=== PATIENT | female | born 1985 | race African-American/Black ===

== ENCOUNTER → 2022-01-31 13:23 | Outpatient (BNVA) | payer OTHER, SELFPAY | PROVIDERS: PCP Hospitalist; Visit Provider Internal Medicine | DX: S01.81XA Laceration without foreign body of other part of head, initial encounter (principal); W22.8XXA Striking against or struck by other objects, initial encounter | CPT/HCPCS: 99202 ==

== ENCOUNTER → 2022-02-08 14:27 | Outpatient (BNVA) | payer OTHER, SELFPAY | PROVIDERS: PCP Hospitalist; Visit Provider Internal Medicine | DX: S01.81XA Laceration without foreign body of other part of head, initial encounter (principal); W22.8XXA Striking against or struck by other objects, initial encounter | CPT/HCPCS: 99213 ==

== ENCOUNTER 2022-05-03 07:59 | Outpatient (REF) | payer OTHER, SELFPAY ==
[2022-05-03 11:44] LABS: Hematocrit 37.8 % (37.0-47.0); Hemoglobin 11.3 g/dl (12.0-16.0); Mean Corpuscular HGB Conc 29.9 g/dl (31.0-35.0); Mean Corpuscular Hemoglobin 24.8 pg (27.0-33.0); Mean Corpuscular Volume 83.1 fL (80.0-98.0); Mean Platelet Volume 11.7 fL (9.4-12.3); Platelet Count 256 X10*3/uL (160-400); Red Blood Count 4.55 X10*6/uL (4.20-5.50); Red Cell Distribution Width 13.6 % (11.0-16.0); White Blood Count 6.7 X10*3/uL (4.8-10.8)
[2022-05-03 12:00] LABS: Estimated Average Glucose 120 mg/dL; Hemoglobin A1c % 5.8 %
[2022-05-03 12:24] LABS: Alanine Aminotransferase 10 U/L (0-31); Albumin Level 3.9 g/dL (3.5-5.0); Alkaline Phosphatase 66 U/L (39-117); Anion Gap 10 (12-20); Aspartate Amino Transferase 13 U/L (5-31); Bilirubin Total 0.4 mg/dL (0.0-1.0); Blood Urea Nitrogen 11 mg/dL (9-16); Calcium 9.1 mg/dL (8.4-10.2); Carbon Dioxide 26 mmol/L (22-29); Chloride 108 mmol/L (96-108); Cholesterol 185 mg/dL; Estimated Glomerular Filt Rate > 60; Glucose Fasting 96 mg/dL (60-99); HDL Cholesterol 47 mg/dL; LDL Cholesterol Calculated 107 mg/dl; Potassium 4.2 mmol/L (3.3-5.1); Sodium 140 mmol/L (135-145); Total Protein 6.6 g/dL (6.5-8.0); Triglycerides 158 mg/dL
[2022-05-03 12:25] LABS: TSH reflex Free T4 1.71 uIU/mL (0.32-4.0); Vitamin D 25-OH Total 17.8 ng/mL (>30)
== END 2022-05-03 08:00 | disposition home or self-care (01) ==
LOC: HO.HMGCLDS 07:59
PROVIDERS: PCP Nurse Practitioner Family; Visit Provider Nurse Practitioner Family
DX: Z00.00 Encounter for general adult medical examination without abnormal findings (principal)
CPT/HCPCS: 36415; 80053; 80061; 82306; 83036; 84443; 85027

== ENCOUNTER → 2022-06-07 08:01 | Outpatient (BNVA) | payer OTHER, SELFPAY | PROVIDERS: PCP Nurse Practitioner Family; Visit Provider Nurse Practitioner Family | DX: G43.109 Migraine with aura, not intractable, without status migrainosus (principal); G47.30 Sleep apnea, unspecified; E66.01 Morbid (severe) obesity due to excess calories; Z68.41 Body mass index [BMI] 40.0-44.9, adult | CPT/HCPCS: 99202 ==

== ENCOUNTER → 2022-06-27 13:01 | Outpatient (REF) | payer OTHER, SELFPAY | LOC: HO.SL 13:01 | PROVIDERS: Visit Provider Nurse Practitioner Family | DX: G47.30 Sleep apnea, unspecified (principal); G43.109 Migraine with aura, not intractable, without status migrainosus; R06.83 Snoring; E66.01 Morbid (severe) obesity due to excess calories; Z68.41 Body mass index [BMI] 40.0-44.9, adult | CPT/HCPCS: 95806 ==

== ENCOUNTER → 2022-08-13 20:30 | Outpatient (REF) | payer OTHER, SELFPAY | LOC: HO.SL 20:30 | PROVIDERS: Visit Provider Nurse Practitioner Family | DX: G47.30 Sleep apnea, unspecified (principal); E66.01 Morbid (severe) obesity due to excess calories; Z68.41 Body mass index [BMI] 40.0-44.9, adult | CPT/HCPCS: 95810 ==

== ENCOUNTER 2022-08-30 13:00 | Outpatient (REF) | payer OTHER, SELFPAY ==
[2022-08-31 05:54] LABS: CT PCR NOT DETECTED (Not Detect.); NG PCR NOT DETECTED (Not Detect.)
[2022-08-31 14:52] LABS: BV Int Neg Control Negative (Negative); BV Int Pos Control Positive (Positive)
[2022-09-03 22:08] LABS: HPV mRNA E6/E7 rflx Not Detected (Not Detected)
== END 2022-08-30 13:01 | disposition home or self-care (01) ==
LOC: HO.LNP 13:00
PROVIDERS: PCP Nurse Practitioner Family; Visit Provider Advanced Practice Midwife
DX: Z01.419 Encounter for gynecological examination (general) (routine) without abnormal findings (principal); Z11.51 Encounter for screening for human papillomavirus (HPV)
CPT/HCPCS: 0353U; 87480; 87510; 87624; 87660; 88142

== ENCOUNTER 2022-10-04 11:46 | Outpatient (AMB) | payer OTHER, SELFPAY ==
--- NOTE | 2022-10-04 11:47 | MHC.PC.OV ---
Vital Signs 10/04/22 11:48 Height 5 ft 5 in Weight 264 lb 8 oz BMI 44.0 BP 118/80 Blood Pressure Location Lt brachial Position Sitting Respiration 12 Pulse 85 Pulse Source Pulse Oximeter Temp 97.5 F Temp Source Temporal Artery Scan Pulse Oximetry (%) 99 Oxygen Delivery Method Room Air Intake Visit Reasons: 2 months elevated BP, low vit D, obesity Intake Note: Patient states that she has alot more hair growth under chin and on chest that she would like removed. Patient states shes been feeling good and has no complaints about her BP, Vit D or weight. 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 Accompanied by: Self / Same As Patient Allergies No Known Allergies Allergy (Verified 10/04/22 12:35) Medication List - Last Reconciled 10/04/22 by Geraldine Jasso CNP cholecalciferol (vitamin D3) 25 mcg PO DAILY 90 days magnesium oxide 400 mg PO DAILY 30 days metronidazole 0.75%(37.5mg/5gram) 1 appful vaginal BID 5 days riboflavin (vitamin B2) 400 mg PO DAILY 30 days topiramate 25 mg PO BID PRN 14 days Tobacco use date assessed: 05/31/22 Dental Screening Dental Screen Date: 10/04/22 Did you have a dental visit in the last 12 months?: Yes Did you have a dental problem in the last 6 months where you did not have access to dental care?: No Was dental information given to patient?: Patient has dentist HPI HPI Comments History of Present Illness Details 37-year-old female presents for hypertension, vitamin-D deficiency, and obesity follow-up She notes that she has been taking her medications as prescribed She states she has not been experiencing headaches No acute symptoms today Her main concern is h/o hair growth on her chin, chest, and abdomen which is getting excessive She has an existing vitamin-D lab order which intends to get drawn today. She had pap smear test done this month: normal She had normal sleep studies done She states she has not been contacted by Dietitian [facility] Surgical History H/O: Hx of tubal ligation Family History Mother HTN (hypertension) Diabetes Social History (Updated 10/04/22 @ 11:59 by Kaur Bruno MA) Household Members: Family Housing: Apartment Are you a primary ocular care technician to a significant other at home: No Alcohol intake: current Alcohol intake frequency: holidays/special occasions only Patient Tobacco Use Status: Never used Tobacco e-Cigarette/Vaping Use: Never Used Second Hand Smoke Exposure: No Special mich needs: No Agree to transfusion: Yes service: No Current occupational status: employed Current occupation: [place] Current occupational exposures/hazards: No Sexual orientation: Straight/Heterosexual Gender identity: Female Cognitive needs: No Hearing needs: No Vision needs: No Female Reproductive History Menstrual Age of Menarche: 9 Questionnaire Thrive Questionnaire Date Thrive assessed: 04/25/22 ELINOR-7 AMB Questionnaire ELINOR-7 Date ELINOR - 7 assessed: 04/25/22 Source: Developed by Drs. Miguel Vasquez, Yoon Fink, Osmin Bolton and colleagues, with an educational jovanny from [employer]. Review of Systems Const Details: Const Denies chills, Denies fatigue, Denies fever(s), Denies headache(s) and Denies weakness ENT Denies dizziness and Denies headache(s) Card Denies chest pain, Denies lightheadedness, Denies dyspnea and Denies other (Palpitations) Resp Denies cough, Denies dyspnea, Denies wheezing and Denies other ( shortness of breath) GI Denies abdominal pain, Denies melena, Denies hematochezia, Denies change in bowel habits, Denies dyspepsia and Denies nausea Denies hematuria and Denies dysuria Musc Denies abnormal gait, Denies myalgias, Denies arthralgias, Denies numbness and Denies tingling Skin/Breast Reports as per HPI Neuro Denies abnormal gait, Denies dizziness, Denies headache(s), Denies memory loss, Denies numbness, Denies Sensory deficit (Neuro), Denies tingling and Denies weakness Psych Denies anxiety and Denies depression Endo Denies cold intolerance, Denies fatigue, Denies heat intolerance, Denies polydipsia and Denies polyuria Aller/Immun Denies wheezing Physical exam (Primary Care) Vital Signs: Last Vital Signs Temp 97.5 F 10/04/22 11:48 Pulse 85 10/04/22 11:48 Resp 12 10/04/22 11:48 BP 118/80 10/04/22 11:48 Pulse Ox 99 10/04/22 11:48 Oxygen Delivery Method Room Air 10/04/22 11:48 BMI result Body Mass Index 44.0 Tobacco/Smoking Status: Tobacco use Status Tobacco use date assessed 05/31/22 10/04/22 12:00 Patient Tobacco Use Status Never used Tobacco 10/04/22 12:00 e-Cigarette/Vaping Use Never Used 10/04/22 12:00 Thrive Assessment: Date of Thrive Assessment Date Thrive assessed 04/25/22 10/04/22 12:00 Const Other: General: no acute distress and well developed Nutritional Appearance: well nourished Orientation/consciousness: patient oriented x3 HENMT Head: Yes normocephalic and Yes atraumatic Eyes General: appearance normal, both eyes and all related structures Pupils: Equal, round and reactive pupils present EOM: EOMs intact bilaterally Resp Effort & Inspection: normal respiratory effort Auscultation: clear to auscultation bilaterally Cardio Rate: regular rate Rhythm: regular rhythm Heart sounds: S1 normal heart sound present, S2 normal heart sound present, no gallops, no murmurs and no rubs GI Palpation (GI): No Abdominal aortic bruit present, Soft to palpation, nontender, No hepatosplenomegaly present and No Rebound tenderness present Auscultation: normal bowel sounds General: Yes no CVA tenderness Back/Spine/Pelvis Back: no CVA tenderness Cervical Spine: cervical ROM normal and No Cervical spine tenderness Thoracic/Lumbar Spine: thoraco-lumbar ROM normal, No pain with thoraco-lumbar ROM, No thoracic spinal tenderness and No lumbar spinal tenderness Extrem General: Yes normal to inspection, No edema and No calf tenderness Skin General: warm and dry. Normal skin color. Normal skin turgor. Excess hair noted to chin and chest Lesions: no lesions Rashes: no rashes Trauma: no lacerations or abrasions Wounds: no wounds Nails: normal Neuro General: patient oriented x3, gait normal and no focal neuro deficit Cranial nerves: Yes Equal, round and reactive pupils present Cognition (Neuro): normal cognition Gait exam (Neuro): Normal gait present Motor exam (neuro): 5/5 motor strength present throughout Sensory Exam: No Sensory deficit (Neuro) Psych Affect: normal affect Assessment and Plan Assessment & Plan (1) Essential hypertension: Code(s): I10 - Essential (primary) hypertension Plan: Blood pressure is controlled, 118/80 She attributed elevated blood pressure to migraine No acute symptoms Continue to take riboflavin and magnesium oxide as prescribed Low-sodium diet encouraged Advised to schedule her next of physical exam for April 2023 Return with symptoms or concerns Verbalized understanding and agreed with treatment plan. (2) Hirsutism: Code(s): L68.0 - Hirsutism Plan: Her reports h/o hair growth on her chin, chest, and abdomen which is getting excessive Excess hair noted to chin and chest Endocrinology referral made Follow-up with symptoms or concerns Verbalized understanding and agreed with treatment plan. (3) Morbid obesity with BMI of 40.0-44.9, adult: Code(s): E66.01 - Morbid (severe) obesity due to excess calories; Z68.41 - Body mass index [BMI] 40.0-44.9, adult Plan: Initial referral was not made Referred to dietitian Healthy diet and routine exercise encouraged Follow-up with symptoms or concerns Verbalized understanding and agreed with treatment plan. (4) Vitamin D deficiency: Code(s): E55.9 - Vitamin D deficiency, unspecified Plan: Vitamin-D level was 17.8 in April She has been on daily vitamin D3 She intends to get repeat vitamin-D level blood work done today Advised to follow-up with symptoms or concerns Verbalized understanding and agreed with treatment plan. Orders: Referrals Endocrinology Referral L68.0 - Hirsutism Nutrition/Dietitian Referral E66.01 - Morbid (severe) obesity due to excess calories, Z68.41 - Body mass index [BMI] 40.0-44.9, adult Coding Level of Care Code Est Pt Level 3 (89495) Diagnoses Essential hypertension I10 Hirsutism L68.0 Morbid obesity with BMI of 40.0-44.9, adult E66.01; Z68.41 Vitamin D deficiency E55.9 Time Spent (min) 25
[2022-10-04 11:48] VITALS: BP 118/80; PULSE 85; RESP 12; TEMP 36.4; O2SAT 99; BMI 44.0
== END 2022-10-04 13:27 | disposition home or self-care (01) ==
PROVIDERS: Visit Provider Nurse Practitioner Family
DX: I10 Essential (primary) hypertension (principal); E66.01 Morbid (severe) obesity due to excess calories; Z68.41 Body mass index [BMI] 40.0-44.9, adult; E55.9 Vitamin D deficiency, unspecified; L68.0 Hirsutism
CPT/HCPCS: 99213

== ENCOUNTER 2022-10-04 12:55 | Outpatient (REF) | payer OTHER, SELFPAY ==
[2022-10-04 15:41] LABS: Vitamin D 25-OH Total 32.4 ng/mL (>30)
== END 2022-10-04 12:56 | disposition home or self-care (01) ==
LOC: HO.WFDLDS 12:55
PROVIDERS: Visit Provider Nurse Practitioner Family
DX: E55.9 Vitamin D deficiency, unspecified (principal)
CPT/HCPCS: 36415; 82306

== ENCOUNTER 2022-10-31 15:12 | Outpatient (AMB) | payer OTHER, SELFPAY ==
--- NOTE | 2022-10-31 15:33 | MHC.PC.OV ---
Vital Signs 10/31/22 15:34 Height 5 ft 5 in Weight 264 lb BMI 43.9 BP 140/84 H Blood Pressure Location Rt brachial Position Sitting Respiration 12 Pulse 76 Pulse Source Pulse Oximeter Temp 97.7 F Temp Source Temporal Artery Scan Pulse Oximetry (%) 98 Oxygen Delivery Method Room Air Intake Visit Reasons: Foot Discomfort Intake Note: Patient states that her riht foot has sharp pains in her right food towards the toe padding. Patient points out that she has a black dot in the area of the foot pian. Patient states that both her heels have a pressure or burning sensation. 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 Accompanied by: Spouse Allergies No Known Allergies Allergy (Verified 10/31/22 16:14) Medication List - Last Reconciled 10/31/22 by Geraldine Jasso CNP cholecalciferol (vitamin D3) 25 mcg PO DAILY 90 days magnesium oxide 400 mg PO DAILY 30 days metronidazole 0.75%(37.5mg/5gram) 1 appful vaginal BID 5 days riboflavin (vitamin B2) 400 mg PO DAILY 30 days topiramate 25 mg PO BID PRN 14 days Tobacco use date assessed: 05/31/22 Dental Screening Dental Screen Date: 10/31/22 Did you have a dental visit in the last 12 months?: Yes Did you have a dental problem in the last 6 months where you did not have access to dental care?: No Was dental information given to patient?: Patient has dentist HPI HPI Comments History of Present Illness Details 37-year-old female presents with complaints needle sensation underneath the ball of her right foot proximal to the 3rd and 4th toes. She notes her symptoms have been ongoing for 2 weeks and have progressively gotten worse. She notes that she works 10 hour shift and her work requires prolonged standing. No tingling or numbness. No fever, chills, body aches, fatigue, or weakness. She notes that last tetanus injection was a year ago. [facility] Medical History No pertinent past medical history Surgical History H/O: Hx of tubal ligation Family History Mother HTN (hypertension) Diabetes Social History Household Members: Family Caregiver staying overnight: No Housing: Apartment Are you a primary acute care surgeon to a significant other at home: No 75 years or older and lives alone: No Alcohol intake: current Alcohol intake frequency: holidays/special occasions only Patient Tobacco Use Status: Never used Tobacco e-Cigarette/Vaping Use: Never Used Second Hand Smoke Exposure: No Special mich needs: No Agree to transfusion: Yes service: No Current occupational status: employed Current occupation: [place] Current occupational exposures/hazards: No Sexual orientation: Straight/Heterosexual Gender identity: Female Cognitive needs: No Hearing needs: No Vision needs: No Female Reproductive History Menstrual Age of Menarche: 9 Questionnaire Thrive Questionnaire Date Thrive assessed: 04/25/22 ELINOR-7 AMB Questionnaire ELINOR-7 Date ELINOR - 7 assessed: 04/25/22 Source: Developed by Drs. Miguel Vasquez, Yoon Fink, Osmin Bolton and colleagues, with an educational jovanny from [employer]. Review of Systems Const Details: Const Denies chills, Denies fatigue, Denies fever(s), Denies headache(s) and Denies weakness ENT Denies dizziness and Denies headache(s) Card Denies chest pain, Denies lightheadedness, Denies dyspnea and Denies other (Palpitations) Resp Denies cough, Denies dyspnea, Denies wheezing and Denies other ( shortness of breath) GI Denies abdominal pain, Denies melena, Denies hematochezia, Denies change in bowel habits, Denies dyspepsia and Denies nausea Denies hematuria and Denies dysuria Musc Denies abnormal gait, Denies myalgias, Denies arthralgias, Denies numbness and Denies tingling Skin/Breast Reports needles sensation to ball of her right foot, Denies rash, Denies unusual bruising and Denies wounds Neuro Denies abnormal gait, Denies dizziness, Denies headache(s), Denies memory loss, Denies numbness, Denies Sensory deficit (Neuro), Denies tingling and Denies weakness Psych Denies anxiety, Denies depression, Denies memory loss Endo Denies cold intolerance, Denies fatigue, Denies heat intolerance, Denies polydipsia and Denies polyuria Aller/Immun Denies wheezing Physical exam (Primary Care) Vital Signs: Last Vital Signs Temp 97.7 F 10/31/22 15:34 Pulse 76 10/31/22 15:34 Resp 12 10/31/22 15:34 BP 140/84 H 10/31/22 15:34 Pulse Ox 98 10/31/22 15:34 Oxygen Delivery Method Room Air 10/31/22 15:34 BMI result Body Mass Index 43.9 Tobacco/Smoking Status: Tobacco use Status Tobacco use date assessed 05/31/22 10/31/22 15:47 Patient Tobacco Use Status Never used Tobacco 10/31/22 15:47 e-Cigarette/Vaping Use Never Used 10/31/22 15:47 Thrive Assessment: Date of Thrive Assessment Date Thrive assessed 04/25/22 10/31/22 15:47 Const Other: General: no acute distress and well developed Nutritional Appearance: well nourished Orientation/consciousness: patient oriented x3 HENMT Head: Yes normocephalic and Yes atraumatic Eyes General: appearance normal, both eyes and all related structures Pupils: Equal, round and reactive pupils present EOM: EOMs intact bilaterally Resp Effort & Inspection: normal respiratory effort Auscultation: clear to auscultation bilaterally Cardio Rate: regular rate Rhythm: regular rhythm Heart sounds: S1 normal heart sound present, S2 normal heart sound present, no gallops, no murmurs and no rubs GI Palpation (GI): No Abdominal aortic bruit present, Soft to palpation, nontender, No hepatosplenomegaly present and No Rebound tenderness present Auscultation: normal bowel sounds General: Yes no CVA tenderness Back/Spine/Pelvis Back: no CVA tenderness Cervical Spine: cervical ROM normal and No Cervical spine tenderness Thoracic/Lumbar Spine: thoraco-lumbar ROM normal, No pain with thoraco-lumbar ROM, No thoracic spinal tenderness and No lumbar spinal tenderness Extrem General: Yes normal to inspection, No edema and No calf tenderness Skin General: warm and dry. Normal skin color. Normal skin turgor. Minimal swelling noted to the ball of right foot proximal to the 3rd and 4th toes, small discoloration to the core with the appearance of foreign body noted, no erythema or overt infection noted Lesions: no lesions Rashes: no rashes Trauma: no lacerations or abrasions Wounds: no wounds Nails: normal Neuro General: patient oriented x3, gait normal and no focal neuro deficit Cranial nerves: Yes Equal, round and reactive pupils present Cognition (Neuro): normal cognition Gait exam (Neuro): Normal gait present Sensory Exam: No Sensory deficit (Neuro) Psych Appearance: grossly normal Affect: normal affect Attitude: cooperative Thought process: Normal thought process present Assessment and Plan Assessment & Plan (1) Foreign body (FB) in soft tissue: Code(s): M79.5 - Residual foreign body in soft tissue Plan: Reports needle sensation underneath the ball of her right foot proximal to the 3rd and 4th toes Minimal swelling noted to the ball of right foot proximal to the 3rd and 4th toes, small discoloration to the core with the appearance of foreign body noted, no erythema or overt infection noted. Very small, linear, hair-like foreign body removed with scalpel Patient reports significant improvement of the right foot with walking Encouraged to perform foot soak with Epsom salts few times daily for the next 2-3 days Monitor for signs and symptoms of infection Return with new or worsening symptoms Verbalized understanding and agreed with treatment plan. Coding Level of Care Code Est Pt Level 3 (94447) Diagnoses Foreign body (FB) in soft tissue M79.5
[2022-10-31 15:34] VITALS: BP 140/84; PULSE 76; RESP 12; TEMP 36.5; O2SAT 98; BMI 43.9
== END 2022-10-31 16:42 | disposition home or self-care (01) ==
PROVIDERS: PCP Nurse Practitioner Family; Visit Provider Nurse Practitioner Family
DX: M79.5 Residual foreign body in soft tissue (principal)
CPT/HCPCS: 99213

== ENCOUNTER 2022-11-01 11:07 | Outpatient (AMB) | payer OTHER, SELFPAY ==
--- NOTE | 2022-11-01 11:08 | MHC.OFFVIS ---
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 The PSG sleep study result was significant for loud snoring. There was no evidence of sleep apnea or sleep related movement disorders. Sleep efficiency was 92.3 %. Pt reports her headache frequency has decreased with magnesium and vitamin B2 but still has some. She is on topiramate 25 mg BID as needed. She uses 400 mg of ibuprofen and it relieves her headache. PFSH Medical History No pertinent past medical history Surgical History H/O: Hx of tubal ligation Family History Mother HTN (hypertension) Diabetes Social History (Updated 11/01/22 @ 11:09 by Leigh Vyas CMA) Household Members: Family Caregiver staying overnight: No Housing: Apartment Are you a primary health care / medical job titles to a significant other at home: No 75 years or older and lives alone: No Alcohol intake: current Alcohol intake frequency: holidays/special occasions only Patient Tobacco Use Status: Never used Tobacco e-Cigarette/Vaping Use: Never Used Second Hand Smoke Exposure: No Special mich needs: No Agree to transfusion: Yes service: No Current occupational status: employed Current occupation: [place] Current occupational exposures/hazards: No Sexual orientation: Straight/Heterosexual Gender identity: Female Cognitive needs: No Hearing needs: No Vision needs: No Female Reproductive History Menstrual Age of Menarche: 9 Review of Systems Const All systems reviewed & are unremarkable except as noted in HPI and below ENT Reports Normal hearing present Neuro Reports Normal hearing present Physical Exam Vital Signs: Last Vital Signs Pulse 76 11/01/22 11:10 BP 128/82 11/01/22 11:10 Pulse Ox 97 11/01/22 11:10 Oxygen Delivery Method Room Air 11/01/22 11:10 Const General: cooperative Nutritional Appearance: obese Orientation/consciousness: patient oriented x3 Limitations: no limitations HEENT Throat: Yes other (mallampati grade 4) Neck Neck: Yes full ROM and Yes supple Resp Effort & Inspection: normal respiratory effort and able to speak in complete sentences Neuro General: patient oriented x3, gait normal and moves all extremities Cranial nerves: Yes Normal facial strength present, Yes Midline tongue present, Yes Symmetric palate elevation present, Yes Normal hearing present, Yes Ability to bilaterally rotate head present and Yes Ability to bilaterally elevate shoulders present Cognition (Neuro): normal cognition Gait exam (Neuro): Normal gait present Motor exam (neuro): 5/5 motor strength present throughout, Pronator motor function not present and no tremor noted Psych Appearance: grossly normal Mental Status: mental status grossly normal Speech and movement: Normal speech and movement present Affect: normal affect Attitude: cooperative Assessment & Plan Assessment & Plan (1) Loud snoring: Code(s): R06.83 - Snoring (2) Migraine with aura and without status migrainosus, not intractable: Code(s): G43.109 - Migraine with aura, not intractable, without status migrainosus Plan Refer patient to ENT for evaluation of loud snoring. Advised patient to try topiramate 25 mg BID not as PRN to prevent migraine. Continue to take magnesium 400 mg q HS and vitamin B2 400 mg daily. Monitoring migraine frequency and intensity. Wt reduction advised. Orders: Orders RT PSG in-lab sleep study 08/13/22 E66.01 - Morbid (severe) obesity due to excess calories, G47.30 - Sleep apnea, unspecified, I10 - Essential (primary) hypertension, Z68.41 - Body mass index [BMI] 40.0-44.9, adult Referrals Ear/Nose/Throat Referral R06.83 - Snoring Medications: Changed From topiramate 25 mg PO BID 14 days PRN 14 tabs 0RF headache To topiramate 25 mg PO BID 30 days 60 tabs 3RF headache Refilled magnesium oxide 400 mg PO DAILY 30 days 30 tabs 2RF riboflavin (vitamin B2) 400 mg PO DAILY 30 days 30 tabs 2RF Coding Level of Care Code Est Pt Level 4 (71726) Diagnoses Loud snoring R06.83 Migraine with aura and without status migrainosus, not intractable G43.109
[2022-11-01 11:10] VITALS: BP 128/82; PULSE 76; O2SAT 97
== END 2022-11-01 11:28 | disposition home or self-care (01) ==
PROVIDERS: Visit Provider Nurse Practitioner Family
DX: R06.83 Snoring (principal); G43.109 Migraine with aura, not intractable, without status migrainosus
CPT/HCPCS: 99214

== ENCOUNTER → 2022-11-01 11:07 | Outpatient (BNVA) | payer OTHER, SELFPAY | PROVIDERS: Visit Provider Nurse Practitioner Family | DX: G47.30 Sleep apnea, unspecified (principal); R06.83 Snoring; G43.109 Migraine with aura, not intractable, without status migrainosus; E66.01 Morbid (severe) obesity due to excess calories; Z68.41 Body mass index [BMI] 40.0-44.9, adult; I10 Essential (primary) hypertension | CPT/HCPCS: 99212 ==

== ENCOUNTER → 2022-12-23 14:51 | Outpatient (BNVA) | payer OTHER, SELFPAY | PROVIDERS: PCP Nurse Practitioner Family; Visit Provider Physician Assistant Surgical ==

== ENCOUNTER 2022-12-25 08:04 | Outpatient (AMB) | payer OTHER, SELFPAY ==
--- NOTE | 2022-12-25 12:40 | A.OFFVIS_ITS ---
Intake VS Expanded 12/25/22 12:49 Height 5 ft 5 in Weight 258 lb BMI 42.9 Body Fat % 45.7 Body Fat Mass 118 Fat Free Mass 140 Visceral Fat Rating 13 Body Water % 38.9 Body Water Mass 100.4 Basal Metabolic Rate/Score 1,987 Intake Visit Reasons: [employer] BMI 42.9 Allergies No Known Allergies Allergy (Verified 12/25/22 12:40) Medication List - Last Reconciled 12/25/22 by Romel Corona MD cholecalciferol (vitamin D3) 25 mcg PO DAILY 90 days magnesium oxide 400 mg PO DAILY 30 days metronidazole 0.75%(37.5mg/5gram) 1 appful vaginal BID 5 days riboflavin (vitamin B2) 400 mg PO DAILY 30 days topiramate 25 mg PO BID 30 days HPI [employer] BMI 42.9 HPI Details Start time: 12.30pm, End time: 1.16pm ?I spent 41 minutes speaking with the patient on the phone plus an additional 5 minutes reviewing and updating records for a total of 46 minutes HPI Comments History of Present Illness Details Previous weight loss efforts: exercise videos, OTC diet pills Wakes up: 5am, Sleeps: 10pm Breakfast: 5.30am (eggs or sandwich) Lunch: 12pm (rice) Dinner: 5pm-7pm (rice, chicken, pasta) Snacks: 9am (crackers), 3-4pm (nuts or fruits), 8pm (ice cream) Exercise: home exercise videos Coffee: 8oz x2 (milk and sugar), tea: none, soda: 1/week (regular Coke), juice: 2-3/wk (apple juice), ETOH: 1-2/month PFSH Medical History (Updated 12/25/22 @ 12:43 by Romel Corona MD) Chronic headaches Morbid obesity No pertinent past medical history Surgical History Hx of tubal ligation H/O: Family History (Updated 12/23/22 @ 15:07 by NEERAJ Hester) Mother HTN (hypertension) Diabetes Father No problems noted. Daughter No problems noted. Daughter No problems noted. 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 Plan for lap sleeve gastrectomy. If diaphragmatic or ventral hernias are present at time of surgery, these will be repaired laparoscopically as well. 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 I emphasized the importance of close follow-up, adherence to instructions and good communication. 2. Nutritional counseling. Start with 2 CELEBRATE REBUILD protein (buy at [facility]) shakes (ONE scoop EACH in 8oz low fat unsweetened almond milk each) at 6am-8am and 9am-11am, 2 protein bars (CELEBRATE protein bars, buy at [facility] [employer] [facility]) one at 12pm-2pm adn 3pm-5pm, dinner at 6pm (10 forks of protein and 10 forks of salad or vegetables) AND one more protein bar after dinner at 8pm-10pm. So you do 2 protein shakes, 2.5 protein bars and one meal per day. Meal to include lean meat (beef, fish, pork, turkey, chicken), or lao yogurt, or egg whites, or beans with a salad with olive oil and fruits (berries, pears, apples, kiwi). Avoid salt, breads, potatoes, rice, pasta, desserts. 3. Each shake would be drunk slowly, like coffee in a period of 2 hours. 4. Cut each bar in 4 pieces and eat each piece in 30min ?to make each bar last 2 hours. 5. I emphasized the importance of measuring accurately the food portion and measure it when serving the food in plate 6. The meal portions include 10 full-size forks of meat and 10 full-size forks of salad. You always eat the meat portion but you can replace up to 5 forks for salad/vegetables with rice, potatoes or pasta, or a fruit ?if you like. The less you do it the better weight loss will be. 7. One full-size fork is what it can be scooped on the fork without falling aside and not what can be bit with the fork. Use regular forks like those you find in a typical restaurant. 8.? Please send me weight measurements as soon as possible and then once a week. Always include your diet and exercise plan. 9. Start walking outside daily, tracking calories with a goal of 300 calories per day, daily. Goal is to burn 2000 calories per week on exercise, which means either 300 calories daily, or 400 calories 5 days per week, or 500 calories 4 days per week, or 650 calories 3 days per week. 10. Alternatively purchase a stationary bike, elliptical or treadmill at home that can track calories. Let me know if you do so I can give you an exercise plan. 11.?It is important of avoiding and for at least 18 mo nths postoperatively and has been discussed at the infosession. 12. Goal is to lose at least 1.5-2lbs per week 13. Goal to lose 10% of your weight before surgery, which is about 26lbs. Ultimate weight goal: 232lbs before surgery 14. Please follow the diet plan exactly without any change. If you don't like something about the plan or you feel hungry you need to communicate with me so I can help you revise the plan. You should not change the plan yourself. (2) Chronic headaches: Code(s): R51.9 - Headache, unspecified; G89.29 - Other chronic pain Orders: Orders Lipid Panel Today E66.01 - Morbid (severe) obesity due to excess calories IRON PROFILE Today E66.01 - Morbid (severe) obesity due to excess calories Zinc Today E66.01 - Morbid (severe) obesity due to excess calories Comprehensive Met. Panel Today E66.01 - Morbid (severe) obesity due to excess calories C Reactive Protein Today E66.01 - Morbid (severe) obesity due to excess calories Ferritin Today E66.01 - Morbid (severe) obesity due to excess calories Vitamin D 25-OH Total Today E66.01 - Morbid (severe) obesity due to excess calories ECG 12 lead EKG Today E66.01 - Morbid (severe) obesity due to excess calories FL upper GI w air Today E66.01 - Morbid (severe) obesity due to excess calories Insulin Today E66.01 - Morbid (severe) obesity due to excess calories Complete Blood Count Auto Diff Today E66.01 - Morbid (severe) obesity due to excess calories Vitamin B12 and Folate Today E66.01 - Morbid (severe) obesity due to excess calories Vitamin B1 Today E66.01 - Morbid (severe) obesity due to excess calories Vitamin A Today E66.01 - Morbid (severe) obesity due to excess calories PTHI Today E66.01 - Morbid (severe) obesity due to excess calories TSH reflex Free T4 Today E66.01 - Morbid (severe) obesity due to excess calories H Pylori Breath Test Today E66.01 - Morbid (severe) obesity due to excess calories Hemoglobin A1c Today E66.01 - Morbid (severe) obesity due to excess calories US abdomen comp w elastography Today E66.01 - Morbid (severe) obesity due to excess calories XR chest 2V Today E66.01 - Morbid (severe) obesity due to excess calories Referrals Behavioral Health Referral E66.01 - Morbid (severe) obesity due to excess calories Nutrition/Dietitian Referral E66.01 - Morbid (severe) obesity due to excess calories Telehealth Telehealth Location of provider rendering services: practice address Location of patient: address on file Patient Identification confirmed using: Name, : Yes Telehealth method: voice only Patient verbally consented to treatment: Yes Patient verbally consented to billing insurance company: Yes Patient informed of any privacy concerns related to visit: Yes Minutes spent on Phone/Video with Pt.: 46 Coding Level of Care Code Tele [facility] Pt Level 4 (89893) Diagnoses Morbid obesity E66.01 Chronic headaches R51.9; G89.29 Time Spent (min) 46
[2022-12-25 12:49] VITALS: BMI 42.9
== END 2022-12-25 13:18 | disposition home or self-care (01) ==
LOC: HO.HBS 08:04
PROVIDERS: PCP Nurse Practitioner Family; Visit Provider Surgery
DX: E66.01 Morbid (severe) obesity due to excess calories (principal); R51.9 Headache, unspecified; G89.29 Other chronic pain
CPT/HCPCS: 99204

== ENCOUNTER → 2022-12-25 08:04 | Outpatient (BNVA) | payer OTHER, SELFPAY | PROVIDERS: PCP Nurse Practitioner Family; Visit Provider Surgery ==

== ENCOUNTER 2022-12-31 08:23 | Outpatient (REF) | payer OTHER, SELFPAY ==
--- NOTE | ~2022-12-31 | US_ITS ---
EXAMINATION: US COMPLETE ABDOMEN WITH LIVER ELASTOGRAPHY CLINICAL INFORMATION: Morbid obesity COMPARISON: None available. TECHNIQUE: Real-time imaging of the abdominal viscera. Noninvasive ultrasound liver fibrosis assessment is performed using Leslie ElastPQ point quantification shear wave elastography (2D-SWE) with a C5-2 MHz transducer. Multiple elastography samples are obtained. FINDINGS: PANCREAS: Normal. The visualized pancreatic head and body are normal in appearance. The remainder of the pancreas is obscured from visualization by the overlying bowel gas. ABDOMINAL AORTA: The proximal, middle, and distal aortic segments are normal in caliber. INFERIOR VENA CAVA: Visualized portions are normal. LIVER: There is diffuse increased echogenicity consistent with fatty infiltration/hepatocellular disease. No focal lesion or intrahepatic biliary duct dilatation. The right lobe measures 15.1 cm in length. The left lobe measures 8.3 cm in length. Portal flow is hepatopedal Shear wave liver elastography median stiffness is 1.59 m/s (reference: normal median stiffness is 1.3 m/s or less). IQR/median stiffness to assess sampling precision is 0.23 (reference: good quality data set is IQR/median stiffness of 0.15 or less). GALLBLADDER: Normal. The gallbladder is physiologically distended without evidence of stones, sludge, polyps, wall thickening or pericholecystic fluid. COMMON BILE DUCT: Normal in caliber measuring 0.5 cm in diameter. RIGHT KIDNEY: Normal. No hydronephrosis. No renal calculi or focal parenchymal lesions. The kidney measures 11.0 cm in maximum dimension. LEFT KIDNEY: Normal. No hydronephrosis. No renal calculi or focal parenchymal lesions. The kidney measures 11.8 cm in maximum dimension. SPLEEN: Normal. The spleen measures 10 cm in maximum dimension. FREE FLUID: None. US/US abdomen comp w elastography IMPRESSION: 1. Findings consistent with fatty infiltration of the liver. 2. Liver elastography: Although measurements appear to rule out compensated advanced chronic liver disease, there is statistical variability of the sampling which decreases accuracy. REFERENCE: Society of Radiologists in Ultrasound Liver Stiffness Thresholds (2020): LIVER STIFFNESS THRESHOLDS: *Liver Stiffness equal or less than 1.3 m/s: High probability of being normal. *Liver Stiffness less than 1.7 m/s: In the absence of other known clinical signs, rules out compensated advanced chronic liver disease. *Liver Stiffness 1.7-2.1 m/s: Suggestive of compensated advanced chronic liver disease but need further test for confirmation. *Liver Stiffness over 2.1 m/s: Rules in compensated advanced chronic liver disease. *Liver Stiffness over 2.4 m/s: Suggestive of clinically significant portal hypertension. QUALITY OF DATA SET: *IQR/Median value equal or less than 0.15 implies a quality data set. *IQR/Median value over 0.15 implies a poor quality data set. SIGNIFICANT CHANGE FROM PRIOR EXAM: Significant change if liver stiffness measurement is 10% or greater from prior exam. OTHER CONSIDERATIONS: The stage of liver fibrosis may be overestimated in the setting of acute hepatitis, liver inflammation, elevated liver function tests, hepatic vascular congestion, obstructive cholestasis, non-fasting state, and infiltrative diseases such as amyloidosis and lymphoma. In some patients with NAFLD, the liver stiffness thresholds for compensated advanced chronic liver disease may be lower. In causes other than viral hepatitis and NAFLD, liver stiffness thresholds are not well established.
--- NOTE | ~2022-12-31 | XR_ITS ---
EXAMINATION: XR CHEST CLINICAL INFORMATION: Morbid obesity. COMPARISON: None available. TECHNIQUE: 2 views of the chest were obtained. FINDINGS: No significant abnormality is noted involving the heart, lungs, mediastinum, bony thorax or soft tissues. XR/XR chest 2V IMPRESSION: Normal chest PA and lateral.
[2022-12-31 09:49] LABS: MANUAL DIFF FLAG NO
[2022-12-31 10:14] LABS: Basophils Absolute Auto 0.1 X10*3/uL (0.0-0.2); Basophils Percent Auto 1.2 % (0-2); Eosinophils Absolute Auto 0.2 X10*3/uL (0.0-0.4); Eosinophils Percent Auto 2.9 % (0-4); Hematocrit 37.3 % (37.0-47.0); Hemoglobin 11.1 g/dl (12.0-16.0); Imm Gran Abs Auto 0.02 X10*3/uL (0.00-0.03); Imm Gran Pct Auto 0.3 % (0.0-0.4); Lymphocytes Absolute Auto 2.4 X10*3/uL (1.2-4.9); Lymphocytes Percent Auto 37.2 % (20-40); Mean Corpuscular HGB Conc 29.8 g/dl (31.0-35.0); Mean Corpuscular Hemoglobin 24.3 pg (27.0-33.0); Mean Corpuscular Volume 81.8 fL (80.0-98.0); Mean Platelet Volume 10.9 fL (9.4-12.3); Monocytes Absolute Auto 0.5 X10*3/uL (0.1-1.2); Monocytes Percent Auto 7.4 % (2-11); Neutrophils Absolute Auto 3.3 x10*3/uL (2.0-8.3); Platelet Count 257 X10*3/uL (160-400); Red Blood Count 4.56 X10*6/uL (4.20-5.50); Red Cell Distribution Width 14.1 % (11.0-16.0); White Blood Count 6.5 X10*3/uL (4.8-10.8)
[2022-12-31 10:47] LABS: Alanine Aminotransferase 13 U/L (0-31); Albumin Level 3.9 g/dL (3.5-5.0); Alkaline Phosphatase 65 U/L (39-117); Anion Gap 11 (12-20); Aspartate Amino Transferase 17 U/L (5-31); Bilirubin Total 0.3 mg/dL (0.0-1.0); Blood Urea Nitrogen 10 mg/dL (9-16); C Reactive Protein 0.26 mg/dL (< or = 0.50); Calcium 9.1 mg/dL (8.4-10.2); Carbon Dioxide 26 mmol/L (22-29); Chloride 110 mmol/L (96-108); Cholesterol 186 mg/dL (<200); Estimated Glomerular Filt Rate > 60; Glucose Random 94 mg/dL (60-115); HDL Cholesterol 40 mg/dL (>40); Iron 38 mcg/dL (30-160); LDL Cholesterol Calculated 111 mg/dL (<100); Percent Iron Saturation 11 % (15-50); Potassium 4.2 mmol/L (3.3-5.1); Sodium 143 mmol/L (135-145); Total Iron Binding Capacity 343 mcg/dL (228-428); Total Protein 7.1 g/dL (6.5-8.0); Triglycerides 175 mg/dL (<150); Unsaturated Iron Binding 305 ug/dL
[2022-12-31 11:07] LABS: Ferritin 14 ng/mL (10-122); Insulin 16 uU/mL (2-29); TSH reflex Free T4 1.56 uIU/mL (0.32-4.0); Vitamin D 25-OH Total 28.9 ng/mL (>30)
[2023-01-02 09:39] LABS: Calcium (PTHI) 8.9 mg/dL (8.6-10.2); PTHI 70 pg/mL (16-77)
[2023-01-03 11:51] LABS: H Pylori Breath Test Negative (Negative)
[2023-01-03 14:09] LABS: Zinc 63 mcg/dL (60-130)
[2023-01-03 18:39] LABS: Vitamin A 43 mcg/dL (38-98)
[2023-01-07 15:32] LABS: Vitamin B1 9 nmol/L (8-30)
== END 2022-12-31 08:24 | disposition home or self-care (01) ==
LOC: HO.US 08:23
PROVIDERS: PCP Nurse Practitioner Family; Visit Provider Surgery
DX: E66.01 Morbid (severe) obesity due to excess calories (principal)
CPT/HCPCS: 36415; 71046; 76705; 76981; 80053; 80061; 82306; 82607; 82728; 82746; 83013; 83036; 83525; 83540; 83970; 84425; 84443; 84590; 84630; 85025; 86140; 93005; 99211

== ENCOUNTER → 2023-01-24 15:35 | Outpatient (BNVA) | payer OTHER, SELFPAY | PROVIDERS: PCP Nurse Practitioner Family; Visit Provider Dietitian, Registered | DX: E66.9 Obesity, unspecified (principal) | CPT/HCPCS: 97802 ==

== ENCOUNTER 2023-01-27 10:30 | Outpatient (AMB) | payer OTHER, SELFPAY ==
--- NOTE | 2023-01-27 10:48 | A.OFFWM_ITS ---
Intake Intake Visit Reasons: VIDEO Intake Allergies No Known Allergies Allergy (Verified 12/25/22 12:40) [facility] Medical History (Updated 12/25/22 @ 12:43 by Romel Corona MD) Chronic headaches Morbid obesity No pertinent past medical history Surgical History Hx of tubal ligation H/O: Family History (Updated 12/23/22 @ 15:07 by NEERAJ Hester) Mother HTN (hypertension) Diabetes Father No problems noted. Daughter No problems noted. Daughter No problems noted. 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 PT reports she's interested in bariatric surgery due to a long life of issues with her weight and her desires for a long-term life change. Pt reports she has been been in treatment, hospitalized and/or in a crisis for mental health. Denies any history or concern around self-harm, other harm, and/or substance use. Scores from PHQ-9 showed no concerns around depression, BES results indicate lower risk for binge eating and mental status exam indicate patient's functioning is not impaired. PT has been cleared from standpoint and there is no need for a f/up before surgery. Presenting Concerns Referral Source P Provider. Pt sees Dr. Burgos Reason for referral Completion of behavioral health assessment as part of process for weight-loss surgery. Precipitating Event Obesity, feeling uncomfortable with her belly. Living Situation Current Living Situation Rent At risk of losing current housing? No Satisfied with current living situation? No (Wants to be home licensed massage practitioner. ) Comments Pt lives with , 2 daughters (19 and 16), 2 dogs and 1 cat. Food/Weight/Diet Expectations of change Initial goal to lose 10% of her weight before surgery, which is about 26lbs. Ultimate weight goal: 232lbs before surgery. Her goal is to be at her healthy weight. Pt reports she started using products 2 weeks ago but is not exercising. History/Relationship with food Pt reports her meals and food options are influenced by her cultural background, leading her to eat a lot of carbs, fried foods, and candies. Never skip meals but used to snack a lot, will eat on each break at work and at times dinner was later than usual. Sometimes was having cereal/milk as late snack. Tends to eat more when is alone at home or spends a lot of time inside home and is less active. Pt denies any concern with emotional eating. . Meals before starting the program: Breakfast: quick during workweek (pancakes, sandwich), weekends: scramble eggs, clemens, toast. Lunch: Skip on workdays. PM Snack: @2-3pm apple sauce with crackers. Dinner: [employer] style. Rice/ndiaye/pork. History/Relationship with weight Pt reports she has always been overweight but gained more weight with each . In last 5 years, her highest weight 280Lbs and lowest 255Lbs. History/Relationship with dieting Lucien, gym membership, OTC pills. smaller portion for carbs/fried food on her own. Binge Eating Do you frequently eat large amounts of food in short periods of time, not feeling physically hungry? Yes Do you feel out of control when you eat a large amount of food in a short period of time? No Do you eat large amounts of food rapidly and typically alone? Yes Night Eating Do you wake up at least once during the night to eat? No If you wake up in the night, do you find that it is necessary to eat something in order to fall back asleep? No Do you have little or no appetite in the morning and feel very hungry in the evening, often overeating between dinner and when you go to bed? No Social History Family history and relationship 20 years ago. They have 2 daughters. Most of her family is in [place]. They try to visit [place] every 2 years. Close to her there is 1 sister and her [id number]. Parental/Familial retirement consultant obligations Daughters. Developmental history and status None reported. Social support , daughters. Community support None. Caodaism/Spirituality Raised as Pentec[employer], but doesn't practice. Cultural/Ethnic information Pt is from [place]. Moved to [place] 13 years ago. Pt is bilingual but primary language is Malaysian. Legal Involvement and History Current or historical involvement with the legal system? None reported. Education Highest grade completed Associate Degree in Medical assistance. Currently enrolled in educational program? No Interested in further educational program? Yes (Would like to be a certified breast puller. 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 No Meaningful activities Walk the dogs, read, family activities, cooking, travel, sleeping. Financial Situation Describe current financial situation Occasional struggle Financial assistance? None Service Service? No Mental Health and Addiction Treatment Current/Past substance abuse? No Current/Past addictive behavior concerns? No Psychiatric history Never been in counseling before and/or been prescribed psych meds. Denies any past hospitalization or even been in crisis. Also, denies any safety concern around self-harm/other-harm. Medical and Physical Health Summary Additional Medical History not covered in history None reported Sexual History concerns None reported Physical exam in the last year? Yes Pain Screening Current pain? Yes Pain in the last few months? Yes Comments Feet/ Medications Is the patient compliant with medications? No Does the patient have Abbott Guardian in place? Not applicable Does the patient use complimentary health approaches? No Trauma/Abuse History History of trauma? No Questionnaires PHQ-9 Over the last 2 weeks, how often have you been bothered by any of the following problems? 1. Little interest or pleasure in doing things: several days 2. Feeling down, depressed, or hopeless: several days 3. Trouble falling or staying asleep, or sleeping too much: not at all 4. Feeling tired or having little energy: more than half the days 5. Poor appetite or overeating: not at all 6. Feeling bad about yourself - or that you are a failure or have let yourself or your family down: several days 7. Trouble concentrating on things, such as reading the newspaper or watching television: not at all 8. Moving or speaking so slowly that other people could have noticed. Or the opposite - being so fidgety or restless that you have been moving around a lot more than usual: not at all 9. Thoughts that you would be better off or of hurting yourself in some way: not at all Total score: 5 Depression Screening Interpretation: Negative Depression Screening Done: Yes 67649 - PHQ-9 Billing: Yes (Initial PHQ-9 scores were high, PT stated she prefers questionnaires in Malaysian as she might got confused and marked the wrong answers. ) Source: Developed by Drs. Miguel Vasquez, Yoon Fink, Osmin Bolton and colleagues, with an educational jovanny from [employer] Binge Eating Scale Group 1 A. I don't feel self-conscious about my wt. or body size when I'm with others. B. I feel concerned about how I look to others, but it normally does not make me fell disappointed with myself C. I do get self-conscious about my appearance and wt. which makes me feel d isappointed in myself. D. I feel very self-conscious about my wt. and frequently I feel intense shame and disgust for myself. I try to avoid social contacts because of my self- consciousness. Response Group 1: B Group 2 A. I don't have any difficulty eating slowly in the proper manner. B. Although I seem to gobble down foods, I don't end up feeling stuffed because of eating to much. C. At times, I tend to eat quickly and then, I feel uncomfortably full afterwards. D. I have the habit of bolting down my food, without really chewing it. When this happens I usually feel uncomfortably stuffed because I've eaten to much. Response Group 2: A Group 3 A. I feel capable to control my eating urges when I want to. B. I feel like I have failed to control my eating more than the average person. C. I feel utterly helpless when it comes to feeling in control of my eating urges. D. Because I feel so helpless about controlling my eating I have become very desperate about trying to get control. Response Group 3: B Group 4 A. I don't have the habit of eating when I'm bored. B. I sometimes eat when I'm bored, but often I'm able to get busy and get my mind off food. C. I have a regular habit of eating when I'm bored, but occasionally, I can use some other activity to get my mind off eating. D. I have a strong habit of eating when I'm bored. Nothing seems to help me breath the habit. Response Group 4: C Group 5 A. I'm usually physically hungry when I eat something. B. Occasionally, I eat something on impulse even though I really am not hungry. C. I have the regular habit of eating foods, that I might not really enjoy, to satisfy a hungry feeling even though physically, I don't need the food. D. Although I'm not physically hungry, I get a hungry feeling in my mouth that only seems to be satisfied when I eat a food, like sandwich, that fills my mouth. Sometimes, when I eat the food to satisfy my mouth hunger, I then spit the food out so I won't gain weight. Response Group 5: B Group 6 A. I don't feel any guilt or self-hate after I overeat. B. After I overeat, occasionally I feel guilt or self-hate. C. Almost all the time I experience strong guilt or self-hate after I overeat. Response Group 6: B Group 7 A. I don't lose total control of my eating when dieting even after periods when I overeat. B. Sometimes when I eat a forbidden food on a diet, I feel like I blew it and eat even more. C. Frequently, I have the habit of saying to myself, I've blown it now, why not go all the way, when I overeat on a diet. When that happens I eat more. D. I have a regular habit of starting a strict diets for myself but I break the diets by going on an eating binge. My life seems to be either a feast or famine. Response Group 7: A Group 8 A. I rarely eat so much food that I feel uncomfortably stuffed afterwards. B. Usually about once a month, I each such a quantity of food, I end up feeling very stuffed. C. I have regular periods during the month when I eat large amounts of food, either at mealtime or at snacks. D. I eat so much food that I regularly feel quite uncomfortable after eating and sometimes a bit nauseous. Response Group 8: A Group 9 A. My level of calorie intake does not go up very high or go down very low on a regular basis. B. Sometimes after I overeat, I will try to reduce my caloric intake to almost nothing to compensate for the excess calories I've eaten. C. I have a regular habit of overeating during the night. It seems that my routine is not to be hungry in the morning but overeat in the evening. D. In my adult years, I have had week-long periods where I practically starve myself. This follows periods when I overeat. It seems I live a life of either feast or famine. Response Group 9: B Group 10 A. I usually am able to stop eating when I want to. I know when enough is enough. B. Every so often, I experience a compulsion to eat which I can't seem to control. C. Frequently, I experience strong urges to eat which I seem unable to control, but at other times I can control my eating urges. D. I feel incapable of controlling urges to eat. I have a fear of not being able to stop eating voluntarily. Response Group 10: B Group 11 A. I don't have any problem stopping eating when I feel full. B. I usually can stop eating when I feel full but occasionally overeat leaving me feeling uncomfortably stuffed. C. I have a problem stopping eating once I start and usually I feel uncomfortably stuffed after I eat a meal. D. Because I have a problem not being able to stop eating when I want, I sometimes have to induce vomiting to relieve my stuffed feeling. Response Group 11: B Group 12 A. I seem to eat just as much when I'm with others, Family social gatherings as when I'm by myself. B. Sometimes, when I'm with other persons, I don't eat as much as I want to eat because I'm self-conscious about my eating. C. Frequently, I eat only a small amount of food when others are present, because I'm very embarrassed about my eating. D. I feel so ashamed about overeating that I pick times to overeat when I know no one will see me. I feel like a closet eater. Response Group 12: B Group 13 A. I eat three meals a day with only an occasional between meal snack. B. I eat 3 meals a day, but I also normally snack between meals. C. When I am snacking heavily, I get in the habit of skipping regular meals. D. There are regular periods when I seem to be continually eating, with no planned meals. Response Group 13: A Group 14 A. I don't think much about trying to control unwanted eating urges. B. At least some of the time, I feel my thoughts are pre-occupied with trying to control my eating urges. C. I feel that frequently I spend much time thinking about how much I ate or about trying not to eat anymore. D. It seems to me that most of my waking hours are pre-occupied by thoughts about eating or not eating. I feel like I'm constantly struggling not to eat. Response Group 14: B Group 15 A. I don't think about food a great deal. B. I have strong craving for food but they last only for brief periods of time. C. I have days when I can't seem to think about anything else but food. D. Most of my days seem to be pre-occupied with thoughts about food. I feel like I live to eat. Response Group 15: B Group 16 A. I usually know whether or not I'm physically hungry. I take the right portion of food to satisfy me. B. Occasionally, I feel uncertain about knowing whether or not I'm physically hungry. A these times it's hard to know how much food I should take to satisfy me. C. Even though I might know how many calories I should eat, I don't have any idea what is a normal amount of food for me. Response Group 16: A Binge Eating Score: 12 Score less than 17 Minimal Risk Score between 18-26 Moderate Risk Score between 27-46 High Risk Assessment & Plan Assessment & Plan (1) Adjustment disorder: Code(s): F43.20 - Adjustment disorder, unspecified Plan After completing the assessment and comparing scores from Binge eating scale and PHQ9, at this time, this data analyst report writer has no concerns about patient's mental status/functioning. Clinician has advised client about available resources if ever in need to access additional support and has encourage client to participate in post-op groups. Advised to schedule a BH jody post-surgery. Telehealth Telehealth Location of provider rendering services: other Location of patient: address on file Patient Identification confirmed using: Name, : Yes Telehealth method: voice only Patient verbally consented to treatment: Yes Patient verbally consented to billing insurance company: Yes Patient informed of any privacy concerns related to visit: No Minutes spent on Phone/Video with Pt.: 50 Coding Level of Care Code New Pt Tele Psy Diag Eval (22470) Patient Type New Diagnoses Adjustment disorder F43.20 Time Spent (min) 50
== END 2023-01-27 11:30 | disposition home or self-care (01) ==
LOC: HO.HBST 10:53
PROVIDERS: PCP Nurse Practitioner Family; Visit Provider Counselor Mental Health
DX: F43.20 Adjustment disorder, unspecified (principal)
CPT/HCPCS: 90791

== ENCOUNTER → 2023-01-27 10:30 | Outpatient (BNVA) | payer OTHER, SELFPAY | PROVIDERS: PCP Nurse Practitioner Family; Visit Provider Counselor Mental Health ==

== ENCOUNTER 2023-01-31 08:34 | Outpatient (AMB) | payer OTHER, SELFPAY ==
--- NOTE | 2023-01-31 12:56 | A.OFFVIS_ITS ---
Intake VS Expanded 01/31/23 13:05 Height 5 ft 5 in Weight 252 lb 8 oz BMI 42.0 Body Fat % 52.7 Body Fat Mass 133.2 Fat Free Mass 119.5 Visceral Fat Rating 16.9 Body Water % 37.3 Body Water Mass 94.2 Basal Metabolic Rate/Score 1,817 Intake Visit Reasons: TV Follow Up SWL - 1ST Allergies No Known Allergies Allergy (Verified 12/25/22 12:40) HPI TV Follow Up SWL - 1ST HPI Details Start time: 12.50pm, End time: 1.14pm ?I spent 19 minutes speaking with the patient on the phone plus an additional 5 minutes reviewing and updating records for a total of 24 minutes HPI Comments History of Present Illness Details Overall weight loss: 5.2lbs or 2.02% TBWL Is doing 2 Celebrate Rebuild protein shakes (1 scoop in 8oz almond milk), 2 Celebrate protein bars, and one meal (10 forkfuls of protein and 10 forkfuls of salad) Exercise: none PFSH Medical History (Updated 01/29/23 @ 19:23 by Romel Corona MD) Chronic headaches Morbid obesity No pertinent past medical history Surgical History Hx of tubal ligation H/O: Family History (Updated 12/23/22 @ 15:07 by NEERAJ Hester) Mother HTN (hypertension) Diabetes Father No problems noted. Daughter No problems noted. Daughter No problems noted. 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 Please change the nutritional plan to one CELEBRATE REBUILD protein shake (ONE scoop EACH in 8oz low fat unsweetened almond milk each) at 6am-8am, 2 Celebrate protein bars at 9am-11am and 12pm-2pm, one more Celebrate Rebuild shake with one scoop at 3pm-5pm, dinner at 6pm (10 forks of protein and 10 forks of salad or vegetables). 2. Try to measure the dinner portions accurately and use the third protein bar after dinner at 8pm-10pm when needed if you feel hungry. Eating bigger food portions and skipping the last bar is not preferred 3. Start the exercise classes with your friend twice per week and try to do the online arnol class at home the other 5 days per week 4. Continue to send me weight measurements weekly on Wednesdays Telehealth Telehealth Location of provider rendering services: practice address Location of patient: address on file Patient Identification confirmed using: Name, : Yes Telehealth method: voice only Patient verbally consented to treatment: Yes Patient verbally consented to billing insurance company: Yes Patient informed of any privacy concerns related to visit: Yes Minutes spent on Phone/Video with Pt.: 24 Coding Level of Care Code Tele Est Pt Level 3 (33939) Diagnoses Morbid obesity with BMI of 40.0-44.9, adult E66.01; Z68.41 Time Spent (min) 24
[2023-01-31 13:05] VITALS: BMI 42.0
== END 2023-01-31 13:15 | disposition home or self-care (01) ==
LOC: HO.HBS 08:34
PROVIDERS: Visit Provider Surgery
DX: E66.01 Morbid (severe) obesity due to excess calories (principal); Z68.41 Body mass index [BMI] 40.0-44.9, adult
CPT/HCPCS: 99213

== ENCOUNTER → 2023-01-31 08:34 | Outpatient (BNVA) | payer OTHER, SELFPAY | PROVIDERS: Visit Provider Surgery ==

== ENCOUNTER 2023-02-26 08:07 | Outpatient (AMB) | payer OTHER, SELFPAY ==
--- NOTE | 2023-02-26 11:38 | MHC.OFFVISWM ---
Intake VS Expanded 02/26/23 11:44 Height 5 ft 5 in Weight 245 lb 6 oz BMI 40.8 Body Fat % 52 Body Fat Mass 127.7 Fat Free Mass 117.8 Visceral Fat Rating 16.2 Body Water % 37.7 Body Water Mass 92.5 Basal Metabolic Rate/Score 1,783 Intake Visit Reasons: TV Follow Up SWL Allergies No Known Allergies Allergy (Verified 12/25/22 12:40) HPI TV Follow Up SWL HPI Details Start time: 11.33am, End time: 11.53am ?I spent 15 minutes speaking with the patient on the phone plus an additional 5 minutes reviewing and updating records for a total of 20 minutes HPI Comments History of Present Illness Details Overall weight loss: 12.4lbs, or 4.81% TBWL Is doing 2 Celebrate Rebuild protein shakes (one scoop in 8oz almond milk), 2 Celebrate protein bars and one meal (10 forks of protein and 10 forks of salad or vegetables) Exercise: doing arnol for 30 minutes, daily [facility] Medical History (Updated 01/29/23 @ 19:23 by Roeml Corona MD) Chronic headaches Morbid obesity No pertinent past medical history Surgical History Hx of tubal ligation H/O: Family History (Updated 12/23/22 @ 15:07 by NEERAJ Hester) Mother HTN (hypertension) Diabetes Father No problems noted. Daughter No problems noted. Daughter No problems noted. 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 Continue same nutritional plan of 2 Rebuild protein shakes (one scoop in 8oz almond milk), 2 Celebrate protein bars and one meal (10 forks of protein and 10 forks of salad or vegetables). 2. Please join a Gym as soon as possible. Start treadmill with an incline of 2.0 and speed of 3.0. Increase incline by 1 every 3 min to a max incline of 8.0, stay 3min at 8.0 and then return to 2.0 and repeat same steps until you burn 400 calories. Please go to the Gym 5 days per week. Goal is to burn 2000 calories per week on treadmill 3. Continue to send me weight measurements weekly on Tuesdays Telehealth Telehealth Location of provider rendering services: practice address Location of patient: address on file Patient Identification confirmed using: Name, : Yes Telehealth method: voice only Patient verbally consented to treatment: Yes Patient verbally consented to billing insurance company: Yes Patient informed of any privacy concerns related to visit: Yes Minutes spent on Phone/Video with Pt.: 20 Coding Level of Care Code Tele Est Pt Level 3 (52838) Diagnoses Morbid obesity with BMI of 40.0-44.9, adult E66.01; Z68.41 Time Spent (min) 20
[2023-02-26 11:44] VITALS: BMI 40.8
== END 2023-02-26 11:54 | disposition home or self-care (01) ==
LOC: HO.HBS 08:07
PROVIDERS: PCP Family Medicine; Visit Provider Surgery
DX: E66.01 Morbid (severe) obesity due to excess calories (principal); Z68.41 Body mass index [BMI] 40.0-44.9, adult
CPT/HCPCS: 99213

== ENCOUNTER → 2023-02-26 08:07 | Outpatient (BNVA) | payer OTHER, SELFPAY | PROVIDERS: PCP Family Medicine; Visit Provider Surgery ==

== ENCOUNTER 2023-02-27 08:48 | Outpatient (REF) | payer OTHER, SELFPAY ==
--- NOTE | ~2023-02-27 | FL_ITS ---
EXAMINATION: XR FLUOROSCOPY UPPER GI WITH AIR CLINICAL INFORMATION: Preop evaluation prior to bariatric surgery COMPARISON: None TECHNIQUE: Fluoroscopic air contrast upper GI examination was performed utilizing standard techniques with thin and thick barium and effervescent granules. Numerous spot images were obtained. FINDINGS: Lateral cine images of the oropharynx and hypopharynx demonstrate normal swallow mechanism with normal epiglottic inversion and soft palate elevation. No tracheal penetration, glottic or subglottic aspiration identified. No nasopharyngeal reflux present. Hypopharyngeal structures appear normal without evidence of mass or diverticulum. There was no significant cricopharyngeal achalasia. Dual and single contrast images of the esophagus demonstrate normal caliber, contour, and mucosal pattern. No evidence of stricture, mass, or ulcerations identified. Esophageal peristalsis was normal. No evidence of hiatus hernia identified. Gastroesophageal reflux is seen up to the thoracic inlet. Dual contrast and single contrast images of the stomach demonstrated normal contour and mucosal pattern without evidence of mass, ulceration, or other abnormality. Contrast freely passed into the gastric antrum and duodenal bulb without delay. Single and air-contrast images of the duodenal bulb demonstrate no abnormality. The duodenal sweep has a normal appearance, course, and mucosal fold appearance. The imaged proximal jejunum has a normal fold pattern and caliber. FLUOROSCOPY TIME: 2 minutes 34 seconds Number of Spot Images: 10 Number of Cine: 7 DOSE AREA PRODUCT: 2370 uGy-m2 (microgray-meter squared) FL/FL upper GI w air IMPRESSION: 1. Gastroesophageal reflux, otherwise unremarkable examination This procedure was performed by Tenzin Ziegler PA-C, and supervised by Dr. Mahan
== END 2023-02-27 08:49 | disposition home or self-care (01) ==
LOC: HO.XRAY 08:48
PROVIDERS: PCP Family Medicine; Visit Provider Surgery
DX: E66.01 Morbid (severe) obesity due to excess calories (principal)
CPT/HCPCS: 74246

== ENCOUNTER → 2023-02-27 08:53 | Outpatient (BNV) | payer OTHER, SELFPAY | PROVIDERS: PCP Family Medicine; Visit Provider Radiology Diagnostic Radiology | DX: Z01.818 Encounter for other preprocedural examination (principal); E66.01 Morbid (severe) obesity due to excess calories | CPT/HCPCS: 74246 ==

== ENCOUNTER 2023-03-19 09:46 | Outpatient (AMB) | payer OTHER, SELFPAY ==
--- NOTE | 2023-03-19 09:39 | A.OFFVIS_ITS ---
Intake VS Expanded 03/19/23 09:59 Height 5 ft 5 in Weight 246 lb 1 oz BMI 40.9 Body Fat % 52 Body Fat Mass 127.9 Fat Free Mass 118.1 Visceral Fat Rating 16.2 Body Water % 37.6 Body Water Mass 92.5 Basal Metabolic Rate/Score 1,785 Intake Visit Reasons: TV Follow Up SWL Allergies No Known Allergies Allergy (Verified 12/25/22 12:40) HPI TV Follow Up SWL HPI Details Start time: 9.35am, End time: 10.06am ?I spent 26 minutes speaking with the patient on the phone plus an additional 5 minutes reviewing and updating records for a total of 31 minutes HPI Comments History of Present Illness Details Overall weight loss: 11.9lbs, or 4.61% TBWL Is doing 2 Celeberate Rebuild protein shakes, 2 protein bars and one meal (10 forks of meat and 10 forks of salad or vegetables) Exercise: Gym x3/week for 300 calories (speed: 4.0 mph) PFSH Medical History (Updated 01/29/23 @ 19:23 by Romel Corona MD) Chronic headaches Morbid obesity No pertinent past medical history Surgical History Hx of tubal ligation H/O: Family History (Updated 12/23/22 @ 15:07 by NEERAJ Hester) Mother HTN (hypertension) Diabetes Father No problems noted. Daughter No problems noted. Daughter No problems noted. 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 Plan for lap sleeve gastrectomy including upper GI endoscopy. All tests has been completed and reviewed and the patient is cleared for the surgery. ?If diaphragmatic or ventral hernias are present at time of surgery, these will be repaired laparoscopically as well. Risks and complications were discussed in detail including possible conversion to an open procedure, anastomotic leak, bleeding requiring transfusion, small bowel obstruction, , DVT and pulmonary embolism, cardiac, or pulmonary complications, as senior care comp lications such as anastomotic ulcer, insufficient weight loss and vitamin deficiencies. I emphasized the importance of close follow-up, adherence to instructions and good communication. So far she has proven to be an excellent communicator and very compliant with all our directions accomplishing a great weight loss. I believe that she is an excellent candidate and she is ready. 2. Please change nutritional plan to 2 Celeberate REBUILD protein shakes (1 scoop each in 8oz almond milk) at 6am-8am and 10am-12pm, 2 protein bars at 1pm- 3pm and one meal (10 forks of meat and 10 forks of salad or vegetables) at 7pm 3. Start treadmill with an incline of 2.0 and speed of 3.5. Increase incline by 1 every 3 min to a max incline of 8.0, stay 3min at 8.0 and then return to 2.0 and repeat same steps until calorie goal is met. Goal is to burn 2000 calories per week on exercise, which means either 300 calories daily, or 400 calories 5 days per week, or 500 calories 4 days per week, or 650 calories 3 days per week. 4. If you can't go to the gym at least 5 days per week, the best choice would be to purchase a stationary bike, elliptical or treadmill at home that can track calories. Let me know if you do so I can give you an exercise plan. 5. Please send me weight measurements weekly on Wednesdays Telehealth Telehealth Location of provider rendering services: practice address Location of patient: address on file Patient Identification confirmed using: Name, : Yes Telehealth method: voice only Patient verbally consented to treatment: Yes Patient verbally consented to billing insurance company: Yes Patient informed of any privacy concerns related to visit: Yes Minutes spent on Phone/Video with Pt.: 31 Coding Level of Care Code Tele Est Pt Level 4 (21538) Diagnoses Morbid obesity E66.01 Time Spent (min) 31
[2023-03-19 09:59] VITALS: BMI 40.9
== END 2023-03-19 10:07 | disposition home or self-care (01) ==
LOC: HO.HBS 09:46
PROVIDERS: PCP Family Medicine; Visit Provider Surgery
DX: E66.01 Morbid (severe) obesity due to excess calories (principal); Z68.41 Body mass index [BMI] 40.0-44.9, adult
CPT/HCPCS: 99214

== ENCOUNTER → 2023-03-19 09:46 | Outpatient (BNVA) | payer OTHER, SELFPAY | PROVIDERS: PCP Family Medicine; Visit Provider Surgery ==

== ENCOUNTER 2023-07-11 09:40 | Outpatient (AMB) | payer OTHER, SELFPAY ==
[2023-07-11 09:41] VITALS: BP 100/60; BMI 41.4
--- NOTE | 2023-07-11 09:41 | A.OFFVIS_ITS ---
Vital Signs 07/11/23 09:41 Height 5 ft 5 in Weight 249 lb BMI 41.4 BP 100/60 Intake Visit Reasons: irregular menses Intake Note: Having irregular periods since February. Fire Boss Required: No Information Interpreted: non-clinical & clinical Park Attendant: Park Attendant Present ([place]) Allergies No Known Allergies Allergy (Verified 07/11/23 09:44) Medication List - Last Reconciled 07/11/23 by Adilene Rivera CNM cholecalciferol (vitamin D3) 25 mcg PO DAILY 90 days magnesium oxide 400 mg PO DAILY 30 days riboflavin (vitamin B2) 400 mg PO DAILY 30 days Is last menstrual period known: Yes Last menstrual period: 06/30/23 Post menopausal: No HPI HPI irregular menses: Details: Patient is here to talk about her irregular menses last few months she normally gets them every month for 5-7 days in his used to them she has a history of 2 C sections and a tubal ligation in [place]. She is to the same partner for 21 years usually very sexually active but the longer were regular periods have interrupted that somewhat as well. Her change in menses is as follows February she skipped her period completely in March then she had a long period from April 04 to then in April she had a normal 1 on May 09 to then in May she had 2 days of spotting on the to of May and then in June she had spotting on June 29 and and then she had a regular period from the to the 06 of July. She just wants to talk about it and figured out she is actively working on weight loss going to the gym trying to eat better she feels she has reached a plateau now and is little bit discouraged but she does know that she feels better with her weight loss and she feels better overall. She has a primary care provider and she had her annual exam last August and would be due for the next 1 next August. [facility] Medical History Chronic headaches Morbid obesity No pertinent past medical history Surgical History Hx of tubal ligation H/O: Family History Mother HTN (hypertension) Diabetes Father No problems noted. Daughter No problems noted. Daughter No problems noted. 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/hazards: No Sexual orientation: Straight/Heterosexual Gender identity: Female Cognitive needs: No Hearing needs: No Vision needs: No Female Reproductive History Menstrual Age of Menarche: 9 Duration of menses: 6-7 days Date of last menstrual period: 06/30/23 control method: other (tubal ligation) Total pregnancies: 2 Full term: 2 Number of Living Children: 2 Date of last pap smear: 09/02/22 (negative) Physical Exam Vital Signs: Last Vital Signs BP 100/60 07/11/23 09:41 BMI result Body Mass Index 41.4 Const Other: Deferred except to note weight loss Assessment & Plan Assessment & Plan (1) Hx of tubal ligation: Code(s): Z98.51 - Tubal ligation status Category: Surgical (2) H/O: : Comment: x2;(08/30/2022 it is possible that the 2 previous C-sections could be contributing to the extreme anterior position of the uterus and cervix making Pap smear challenging) Code(s): Z98.891 - History of uterine scar from previous surgery Category: Surgical (3) Menorrhagia, premenopausal: Code(s): N92.4 - Excessive bleeding in the premenopausal period Category: Medical (4) Morbid obesity: Code(s): E66.01 - Morbid (severe) obesity due to excess calories Category: Medical Plan See HPI for the details of her irregular menses since February. Discussed usual approach to figuring out what is going on with menses but in general having more irregular menses skipping a menses and then having a heavier menses after that is very often tied to body mass index in excess hormones that are involved with this process. She is aware of this and she is actively working on weight loss for other health reasons as well. 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 I reviewed that is often the tool that is employed help deal with irregular m enses. Reviewed why I would normally recommend combination control pills over age 35 as a new start. Discussed the 1st an ultrasound just to make sure there is nothing else internally that could explain this though usually an ultrasound will not be helpful in this regard it is just to rule out any other pathology 1st. Discussed that we can have a follow-up visit after that discussed usefulness of the Mirena for this she would rather not jump to that at this point and would that maybe if she continues to lose weight that her periods will become more regular and normal again. I also discussed the possibility of progestin only pills but there has no guarantee that they would be helpful this regard as well. For now she is going to working on weight loss and we will have a tele visit after the pelvic ultrasound and she return also for her complex care nurse practitioner annual in August and we will continue this discussion she does not have any other questions at this time.
== END 2023-07-11 10:52 | disposition home or self-care (01) ==
LOC: HO.HWSM 09:40
PROVIDERS: PCP Family Medicine; Visit Provider Advanced Practice Midwife
DX: Z98.51 Tubal ligation status (principal); Z98.891 History of uterine scar from previous surgery; N92.4 Excessive bleeding in the premenopausal period; E66.01 Morbid (severe) obesity due to excess calories
CPT/HCPCS: 99213

== ENCOUNTER → 2023-07-11 09:40 | Outpatient (BNVA) | payer OTHER, SELFPAY | PROVIDERS: PCP Family Medicine; Visit Provider Advanced Practice Midwife | DX: N92.4 Excessive bleeding in the premenopausal period (principal); Z98.51 Tubal ligation status; Z98.891 History of uterine scar from previous surgery; E66.01 Morbid (severe) obesity due to excess calories; Z68.41 Body mass index [BMI] 40.0-44.9, adult | CPT/HCPCS: 99212 ==

== ENCOUNTER 2023-07-31 15:50 | Outpatient (REF) | payer OTHER, SELFPAY ==
--- NOTE | ~2023-07-31 | US_ITS ---
EXAMINATION: US PELVIS COMPLETE CLINICAL INFORMATION: Irregular menstruation COMPARISON: None TECHNIQUE: Transabdominal and transvaginal imaging was performed. FINDINGS: The uterus is of normal size and echogenicity measuring 11.8 x 4.9 x 6.7 cm. A regular homogeneous endometrium is identified measuring 1.1 cm. Nabothian cyst containing debris in the cervix. Both ovaries are of normal size and echogenicity. The right measures 2.3 x 1.1 x 1.6 cm for a volume of 2 mL. The left measures 1.9 x 1.6 x 1.8 cm for a volume of 2.8 mL. There is no pelvic free fluid. US/US pelvic and transvaginal IMPRESSION: Nabothian cyst containing debris in the cervix. Otherwise unremarkable pelvic ultrasound.
== END 2023-07-31 15:51 | disposition home or self-care (01) ==
LOC: HO.US 15:50
PROVIDERS: PCP Nurse Practitioner Family; Visit Provider Advanced Practice Midwife
DX: N92.6 Irregular menstruation, unspecified (principal)
CPT/HCPCS: 76830; 76856

== ENCOUNTER 2023-08-22 11:10 | Outpatient (AMB) | payer OTHER, SELFPAY ==
--- NOTE | 2023-08-22 11:16 | A.OFFVIS_ITS ---
Vital Signs 08/22/23 11:17 Height 5 ft 5 in Weight 250 lb BMI 41.6 BP 110/76 Intake Visit Reasons: Ultrasound Follow up Commuter Pilot Required: No Information Interpreted: non-clinical & clinical Special Warfare Combatant Crewman: Special Warfare Combatant Crewman Present (Bebeto) Allergies No Known Allergies Allergy (Verified 08/22/23 11:17) Medication List - Last Reconciled 08/22/23 by Adilene Rivera CNM cholecalciferol (vitamin D3) 25 mcg PO DAILY 90 days magnesium oxide 400 mg PO DAILY 30 days riboflavin (vitamin B2) 400 mg PO DAILY 30 days Is last menstrual period known: Yes Last menstrual period: 07/31/23 Post menopausal: No HPI HPI Ultrasound Follow up: Details: Patient is here to review her pelvic ultrasound that she had done as part of evaluation of her recently irregular periods. See the last note. She reports her last 2 periods have been normal her last period in June came on June 29 and this 1 this month came on July 30 same day she had the pelvic ultrasound the pelvic ultrasound is within normal limits and showed normal lining and ovaries and did noted nabothian cyst which she googled. She is paying attention to her cycles thinks that she is become aware of when she ovulates because she had a little pain last weekend and it was coinciding with the time of ovulation. We had discussed options had the last visit and she was not interested in a Mirena and she still is not. Also we discussed control pills but I would not normally start control pills in somebody who is over 35. (Last visits note dictation omitted in NOT out of the note.) [facility] Medical History Chronic headaches Morbid obesity No pertinent past medical history Surgical History Hx of tubal ligation H/O: Family History Mother HTN (hypertension) Diabetes Father No problems noted. Daughter No problems noted. Daughter No problems noted. 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: No Sexual orientation: Straight/Heterosexual Gender identity: Female Cognitive needs: No Hearing needs: No Vision needs: No Female Reproductive History Menstrual Age of Menarche: 9 Date of last menstrual period: 07/31/23 control method: permanent sterilization Date of last pap smear: 09/02/22 (negative) Physical Exam Vital Signs: Last Vital Signs BP 110/76 08/22/23 11:17 BMI result Body Mass Index 41.6 Results Reviewed Results Reviewed: Patient: Andree Quintero MR#: [id number] : 1985 Acct:[id number] Age/Sex: 38 / F ADM Date: 07/31/23 Loc: HO.US Attending Dr: Adilene Rivera CNM Ordering Physician: Adilene Rivera CNM Date of Service: 07/31/23 Procedure(s): US pelvic and transvaginal Accession Number(s): [id number] cc: Adilene Rivera CNM; Geraldine Jasso [facility]~ EXAMINATION: US PELVIS COMPLETE CLINICAL INFORMATION: Irregular menstruation COMPARISON: None TECHNIQUE: Transabdominal and transvaginal imaging was performed. FINDINGS: The uterus is of normal size and echogenicity measuring 11.8 x 4.9 x 6.7 cm. A regular homogeneous endometrium is identified measuring 1.1 cm. Nabothian cyst containing debris in the cervix. Both ovaries are of normal size and echogenicity. The right measures 2.3 x 1.1 x 1.6 cm for a volume of 2 mL. The left measures 1.9 x 1.6 x 1.8 cm for a volume of 2.8 mL. There is no pelvic free fluid. US/US pelvic and transvaginal IMPRESSION: Nabothian cyst containing debris in the cervix. Otherwise unremarkable pelvic ultrasound. Dictated By: My Lyman MD Signed By: <Electronically signed by My Lyman MD in OV> 08/07/23 1821 DD/ 1609 TD/TT: Casino Change Attendant: Assessment & Plan Assessment & Plan (1) Menstrual periods irregular: Comment: Since February Code(s): N92.6 - Irregular menstruation, unspecified Category: Medical Plan Patient is here to review her pelvic ultrasound that she had done as part of evaluation of her recently irregular periods. See the last note. She reports her last 2 periods have been normal her last period in June came on June 29 and this 1 this month came on July 30 same day she had the pelvic ultrasound the pelvic ultrasound is within normal limits and showed normal lining and ovaries and did noted nabothian cyst which she googled. She is paying attention to her cycles thinks that she is become aware of when she ovulates because she had a little pain last weekend and it was coinciding with the time of ovulation. We had discussed options had the last visit and she was not interested in a Mirena and she still is not. Also we discussed control pills but I would not normally start control pills in somebody who is over 35. (Last visits note dictation omitted in NOT out of the note.) Discussed her efforts at weight loss she has not been paying attention her weight but she is feeling good about how she feels in her body she is going to [employer] with her daughter and feels better in her clothes and feels like she is eating healthier she is continuing on her path weight loss. She has an appointment for an annual coming up. Coding Level of Care Code Est Pt Level 3 (54150) Diagnoses Menstrual periods irregular N92.6
[2023-08-22 11:17] VITALS: BP 110/76; BMI 41.6
== END 2023-08-22 11:36 | disposition home or self-care (01) ==
LOC: HO.HWSM 11:10
PROVIDERS: PCP Nurse Practitioner Family; Visit Provider Advanced Practice Midwife
DX: N92.6 Irregular menstruation, unspecified (principal)
CPT/HCPCS: 99213

== ENCOUNTER → 2023-08-22 11:10 | Outpatient (BNVA) | payer OTHER, SELFPAY | PROVIDERS: PCP Nurse Practitioner Family; Visit Provider Advanced Practice Midwife | DX: N92.6 Irregular menstruation, unspecified (principal) | CPT/HCPCS: 99212 ==

== ENCOUNTER 2023-08-25 08:07 | Outpatient (AMB) | payer OTHER, SELFPAY ==
--- NOTE | 2023-08-25 08:10 | AM.OFFWIN_ITS ---
Intake Vital Signs 08/25/23 08:14 Height 5 ft 5 in Weight 114.362 kg BMI 42.0 BP 120/72 Blood Pressure Location Rt brachial Position Sitting Pulse 88 Pulse Source Pulse Oximeter Temp 98.2 F Temp Source Oral Pulse Oximetry (%) 96 Oxygen Delivery Method Room Air Intake Visit Reasons: EP sore throat, congestion (masked) Intake Note: pt is here for sore throat, congestion ongoing for 5 days Patient Tobacco Use Status: Never used Tobacco Allergies No Known Allergies Allergy (Verified 08/25/23 08:25) Do you need a note to return to daycare/school/sports/work: Yes HPI EP sore throat, congestion (masked) HPI Details Patient presents on day 5 of sore throat, nasal congestion and nonproductive cough. She has used some [id number] cold remedies with minimal relief. She denies sick contacts at home. She denies fever, nausea, vomiting, shortness of breath. PFS Medical History Chronic headaches Morbid obesity No pertinent past medical history Surgical History Hx of tubal ligation H/O: Family History Mother HTN (hypertension) Diabetes Father No problems noted. Daughter No problems noted. Daughter No problems noted. 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 Sexual orientation: Straight/Heterosexual Gender identity: Female Cognitive needs: No Hearing needs: No Vision needs: No Female Reproductive History Menstrual Age of Menarche: 9 Review of Systems Const Reports as per HPI Eyes Reports as per HPI ENT Reports as per HPI Card Reports as per HPI and Reports no additional complaints Resp Reports as per HPI and Reports no additional complaints GI Reports as per HPI Neuro Reports no additional complaints Physical Exam Vital Signs: Last Vital Signs Temp 98.2 F 08/25/23 08:14 Pulse 88 08/25/23 08:14 BP 120/72 08/25/23 08:14 Pulse Ox 96 08/25/23 08:14 Oxygen Delivery Method Room Air 08/25/23 08:14 BMI result Body Mass Index 42.0 Const General: cooperative, comfortable and no acute distress Orientation/consciousness: patient oriented x3 HEENT Ears: external ears normal and TM's normal bilaterally General nose exam: Normal external nose present, Normal nasal mucous membranes and turbinates present and Nasal discharge present clear and mucoid Face and sinus: Yes normal facial exam and Yes sinuses nontender Mouth: Normal oral and palatal mucosa present and oropharynx normal Throat: Yes posterior oropharynx normal and Yes uvula midline Neck Neck: Yes no lymphadenopathy Resp Effort & Inspection: normal respiratory effort Auscultation: clear to auscultation bilaterally Cardio Rate: regular rate Rhythm: regular rhythm Heart sounds: S1 normal heart sound present and S2 normal heart sound present Neuro General: patient oriented x3 Results AMB Rapid Strep AMB Rapid Strep Negative Last Edit by James Douglas CMA on 08/25/23 09 :00 Results Reviewed Results Reviewed: Laboratory Last Values Strep Scn Rapid Clinic Negative 08/25/23 08:59 Assessment & Plan Assessment & Plan (1) Upper respiratory infection: Code(s): J06.9 - Acute upper respiratory infection, unspecified Qualifiers: URI type: acute pharyngitis Plan: Viral swab collected. Will report results as available. Advised patient on self-care an OTC remedies. Work note given for another 2 days. Return to clinic if symptoms do not improve over the next 3-5 days. Orders: Orders AMB Rapid Strep Screen Today Z13.9 - Encounter for screening, unspecified SARS-CoV2/FLU/RSV Today B34.9 - Viral infection, unspecified Coding Level of Care Code Est Pt Level 3 (96483) Diagnoses Upper respiratory infection J06.9 URI type: acute pharyngitis
[2023-08-25 08:14] VITALS: BP 120/72; PULSE 88; TEMP 36.8; O2SAT 96; BMI 42.0
== END 2023-08-25 09:18 | disposition home or self-care (01) ==
PROVIDERS: PCP Nurse Practitioner Family; Visit Provider Physician Assistant
DX: J06.9 Acute upper respiratory infection, unspecified (principal); Z13.9 Encounter for screening, unspecified
CPT/HCPCS: 87880; 99213

== ENCOUNTER 2023-08-25 09:28 | Outpatient (REF) | payer OTHER, SELFPAY ==
[2023-08-25 11:34] LABS: Influenza A PCR NEGATIVE (Negative); Influenza B PCR NEGATIVE (Negative); Resp Syncy Virus RNA Qual PCR NEGATIVE (Negative); SARS COV2 PCR INHOUSE NEGATIVE (Negative)
== END 2023-08-25 09:29 | disposition home or self-care (01) ==
LOC: HO.LAB 09:28
PROVIDERS: Visit Provider Physician Assistant
DX: B34.9 Viral infection, unspecified (principal)
CPT/HCPCS: 0241U

== ENCOUNTER 2023-09-03 08:03 | Outpatient (AMB) | payer OTHER, SELFPAY ==
[2023-09-03 08:05] VITALS: BP 120/70; PULSE 88; TEMP 36.6; O2SAT 99; BMI 41.9
--- NOTE | 2023-09-03 08:05 | AM.OFFWIN_ITS ---
Intake Vital Signs 09/03/23 08:05 Height 5 ft 5 in Weight 252 lb BMI 41.9 BP 120/70 Blood Pressure Location Rt brachial Position Sitting Pulse 88 Pulse Source Pulse Oximeter Temp 97.8 F Temp Source Oral Pulse Oximetry (%) 99 Intake Visit Reasons: EP sore throat Intake Note: pt is here for sore throat, pt states she was here last week for same thing and still not getting better Patient Tobacco Use Status: Never used Tobacco Allergies No Known Allergies Allergy (Verified 09/03/23 08:05) Do you need a note to return to daycare/school/sports/work: Yes HPI HPI Comments History of Present Illness Details Patient is a 38yo F who presents to the office with ST complaint She was seen last week for ST and cold symptoms and was negative covid/flu/strep She said congestion and ear pain resolved No fever or chills + lingering dry cough and ST ST worse towards end of day after talking Painful to swallow but no inability to swallow No other complaints OTC honey and cold medicine without relief 6/10 pain sharp PFSH Medical History Chronic headaches Morbid obesity No pertinent past medical history Surgical History Hx of tubal ligation H/O: Family History Mother HTN (hypertension) Diabetes Father No problems noted. Daughter No problems noted. Daughter No problems noted. 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 Current occupational exposures/hazards: No Sexual orientation: Straight/Heterosexual Gender identity: Female Cognitive needs: No Hearing needs: No Vision needs: No Female Reproductive History Menstrual Age of Menarche: 9 Review of Systems Const Denies chills and Denies fever(s) Eyes Denies blurry vision ENT Denies otalgia, Denies nasal discharge, Reports sore throat, Denies throat swelling and Denies tongue swelling Card Denies dyspnea Resp Denies chest congestion, Reports cough and Denies dyspnea GI Denies abdominal pain Aller/Immun Denies throat swelling and Denies tongue swelling Physical Exam Vital Signs: Last Vital Signs Temp 97.8 F 09/03/23 08:05 Pulse 88 09/03/23 08:05 BP 120/70 09/03/23 08:05 Pulse Ox 99 09/03/23 08:05 BMI result Body Mass Index 41.9 General: Non-toxic, NAD. Speaking full sentences. Skin: Warm dry throughout. No facial or neck edema or erythema Eye: EOMI HENT: Airway patent. Uvula midline. No pharyngeal erythema or edema. No ECONOMICS TEACHER. No exudates. No sublingual edema, masses or tenderness. No discharge or edema to whartons or stensons ducts. No dental caries appreciated Lymph: No lymphadenopathy Bilateral canals clear. TM non-erythematous, non-bulging. No TM perforation or hemotympanum noted. Respiratory: CTA bilaterally. No wheezes, rales or rhonchi Cardiac: RRR. No murmur MSK: Full ROM extremities. Neurology: A/O. No aphasia or facial droop. Gait without abnormality Psych: Good mood and affect Assessment & Plan Assessment & Plan (1) Pharyngitis: Code(s): J02.9 - Acute pharyngitis, unspecified Qualifiers: Pharyngitis/tonsillitis etiology: unspecified etiology Qualified Code(s): J02.9 - Acute pharyngitis, unspecified Plan: Patient seen and evaluated. Airway patent No clinical signs of strep Vitals stable Discussed tessalon pearls for cough/ST Warm salt water gargles Call with concerns Patient gave verbal understanding and had no additional questions or concerns at time of discharge All questions answered Medications: New benzonatate 200 mg PO BID-TID PRN 14 caps 0RF cough Coding Level of Care Code Est Pt Level 3 (17854) Diagnoses Pharyngitis, unspecified etiology J02.9 Pharyngitis/tonsillitis etiology: unspecified etiology
== END 2023-09-03 09:10 | disposition home or self-care (01) ==
PROVIDERS: PCP Nurse Practitioner Family; Visit Provider Physician Assistant
DX: J02.9 Acute pharyngitis, unspecified (principal)
CPT/HCPCS: 87880; 99213

== ENCOUNTER 2023-09-19 09:46 | Outpatient (AMB) | payer OTHER, SELFPAY ==
[2023-09-19 09:50] VITALS: BP 130/70; BMI 41.6
--- NOTE | 2023-09-19 09:50 | A.OFFVIS_ITS ---
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 Required: No Manager Plumbing Services: Manager Plumbing Present Information Interpreted: clinical only Manometer Technician: Manometer Technician Present Allergies No Known Allergies Allergy (Verified 09/19/23 09:52) Medication List - Last Reconciled 09/19/23 by Adilene Rivera, CNM benzonatate 200 mg PO BID-TID PRN magnesium oxide 400 mg PO DAILY 30 days Is last menstrual period known: Yes Last menstrual period: 09/01/23 Do you need a note to return to daycare/school/sports/work: No HPI HPI 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 Discussion took place about options including Mirena IU S which she was not interested in. She has lost significant it year last month, so she took a break from exercise. But she will be getting back to it. [facility] Medical History Chronic headaches Morbid obesity No pertinent past medical history Surgical History Hx of tubal ligation H/O: Family History Mother HTN (hypertension) Diabetes Father No problems noted. Daughter No problems noted. Daughter No problems noted. 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 occupational exposures/hazards: No Sexual orientation: Straight/Heterosexual Gender identity: Female Cognitive needs: No Hearing needs: No Vision needs: No Female Reproductive History Menstrual Age of Menarche: 9 Duration of menses: 6-7 days Date of last menstrual period: 09/01/23 control method: permanent sterilization Total pregnancies: 2 Full term: 2 Date of last pap smear: 08/30/22 (neg.) Physical Exam Vital Signs: Last Vital Signs BP 130/70 09/19/23 09:50 BMI result Body Mass Index 41.6 Const General: healthy appearing, comfortable, no acute distress, well developed and alert Nutritional Appearance: average body habitus and obese Orientation/consciousness: patient oriented x3 Limitations: no limitations HEENT Head: Yes normocephalic Neck Neck: Yes normal visual inspection Chest Chest palpation & inspection: normal inspection of the chest Breast/axilla inspection: normal inspection of the breasts and normal inspection of the axillae Breast/axilla palpation: normal palpation of the breasts and normal palpation of the axillae Resp Effort & Inspection: normal respiratory effort GI Inspection: Yes normal to inspection, No Abdominal wall edema and No distended Palpation (GI): Soft to palpation and nontender Other: External exam is normal limits vagina is moist with normal appearing whitish mucus cervix difficult to see nulliparous secondary to previous C-sections and is very deep. Difficult to palpate cervix as well but it is anterior very deep, close nontender mobile uterus difficult palpate secondary to adipose nontender good tone w Kegel General: Yes bladder normal to palpation External Female Exam: normal external appearance and normal appearance of the urethra Speculum Exam - Vagina: normal appearance of the vagina, normal palpation and normal vaginal discharge Speculum Exam - Cervix: normal appearance of the cervix, normal palpation and nontender Bimanual exam- vagina & uterus: normal bimanual exam, normal palpation, uterine size normal, bladder normal to palpation, consistency normal, normal palpation, uterine mobility normal, uterine shape normal, No Cervical tenderness present, non-tender and no cervical motion tenderness Bimanual Exam- Adnexa, other: normal adnexae, no masses, normal and No adnexal tenderness Neuro General: patient oriented x3 Assessment & Plan Assessment & Plan (1) Morbid obesity: Code(s): E66.01 - Morbid (severe) obesity due to excess calories Category: Medical (2) Hx of tubal ligation: Code(s): Z98.51 - Tubal ligation status Category: Surgical (3) Menorrhagia, premenopausal: Code(s): N92.4 - Excessive bleeding in the premenopausal period Category: Medical (4) Morbid obesity with BMI of 40.0-44.9, adult: Code(s): E66.01 - Morbid (severe) obesity due to excess calories; Z68.41 - Body mass index [BMI] 40.0-44.9, adult Category: Medical Plan -----Discussed in this visit the following: healthy balanced diet, regular and consistent exercise, getting recommended health screens, doing the best she can for her particular health concerns, kegel exercises, pap smear screening and followup recommendations, mammography screening and SBE, normal changes in cycles in her life stage--- . She would be due for mammogram next year, and ordered next year. Also discuss progestin only pills lighten her menses some and I did offer them to her she she thought about it but declined for now. She will resume her weight loss efforts she she has an appointment w a with her primary next week. Coding Level of Care Code Est Pt Prev Care 18-39y(12215) Diagnoses Morbid obesity E66.01 Hx of tubal ligation Z98.51 Menorrhagia, premenopausal N92.4 Morbid obesity with BMI of 40.0-44.9, adult E66.01; Z68.41
== END 2023-09-19 10:26 | disposition home or self-care (01) ==
LOC: HO.HWSM 09:46
PROVIDERS: PCP Nurse Practitioner Family; Visit Provider Advanced Practice Midwife
DX: Z01.419 Encounter for gynecological examination (general) (routine) without abnormal findings (principal); N92.4 Excessive bleeding in the premenopausal period; Z98.51 Tubal ligation status; E66.01 Morbid (severe) obesity due to excess calories; Z68.41 Body mass index [BMI] 40.0-44.9, adult
CPT/HCPCS: 99395

== ENCOUNTER → 2023-09-19 09:46 | Outpatient (BNVA) | payer OTHER, SELFPAY | PROVIDERS: PCP Nurse Practitioner Family; Visit Provider Advanced Practice Midwife | DX: Z01.419 Encounter for gynecological examination (general) (routine) without abnormal findings (principal); E66.01 Morbid (severe) obesity due to excess calories; N92.4 Excessive bleeding in the premenopausal period; Z98.51 Tubal ligation status; Z68.41 Body mass index [BMI] 40.0-44.9, adult | CPT/HCPCS: 99395 ==

== ENCOUNTER 2023-09-26 08:20 | Outpatient (AMB) | payer OTHER, SELFPAY ==
[2023-09-26 08:32] VITALS: BP 104/76; PULSE 87; RESP 14; TEMP 36.5; O2SAT 98; BMI 42.5
--- NOTE | 2023-09-26 08:32 | A.OFFPC_ITS ---
Vital Signs 09/26/23 08:32 Height 5 ft 5 in Weight 255 lb 8 oz BMI 42.5 BP 104/76 Blood Pressure Location Rt brachial Position Sitting Respiration 14 Pulse 87 Pulse Source Pulse Oximeter Temp 97.7 F Temp Source Temporal Artery Scan Pulse Oximetry (%) 98 Oxygen Delivery Method Room Air Intake Visit Reasons: Annual Demand Planner Required: No Accompanied by: Self / Same As Patient Allergies No Known Allergies Allergy (Verified 09/26/23 08:44) Medication List - Last Reconciled 09/26/23 by Geraldine Jasso, JESSICA benzonatate 200 mg PO BID-TID PRN magnesium oxide 400 mg PO DAILY 30 days Tobacco use date assessed: 09/26/23 Dental Screening Dental Screen Date: 09/26/23 Did you have a dental visit in the last 12 months?: Yes Did you have a dental problem in the last 6 months where you did not have access to dental care?: No Was dental information given to patient?: Patient has dentist HPI HPI Comments History of Present Illness Details 38-year-old female presents for an exten ded physical exam She has past medical history significant for HTN, prediabetes, hypertriglyceridemia, migraine with aura, morbid obesity, and vitamin-D deficiency Blood pressure has been controlled and therefore she has not been on medication She states that she has been making healthy dietary choices, sleeping well, and doing physical exercise She notes that she developed frequent cough a month ago, was evaluated [place] [facility] [place], viral testing were negative. She states that the cough has not co mpletely subsided. She reports cough that is predominantly nonproductive upon awakening some days in the morning; associated mild weezing at times. She was followed by [facility] weight management. She had a mind change on bariatric surgery. She notes that she decided to start eating better and doing physical exercise Her last Pap smear test was on 08/2022: Negative findings PFSH Medical History Chronic headaches Morbid obesity No pertinent past medical history Surgical History Hx of tubal ligation H/O: Family History Mother HTN (hypertension) Diabetes Father No problems noted. Daughter No problems noted. Daughter No problems noted. 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 1. Little interest or pleasure in doing things: not at all 2. Feeling down, depressed, or hopeless: not at all 3. Trouble falling or staying asleep, or sleeping too much: not at all 4. Feeling tired or having little energy: not at all 5. Poor appetite or overeating: not at all 6. Feeling bad about yourself - or that you are a failure or have let yourself or your family down: not at all 7. Trouble concentrating on things, such as reading the newspaper or watching television: not at all 8. Moving or speaking so slowly that other people could have noticed. Or the opposite - being so fidgety or restless that you have been moving around a lot more than usual: not at all 9. Thoughts that you would be better off or of hurting yourself in some way: not at all Total score: 0 Depression Screening Interpretation: Negative Depression Screening Done: Yes 22678 - PHQ-9 Billing: Yes Source: Developed by Drs. Miguel Vasquez, Yoon Fink, Osmin Bolton and colleagues, with an educational jovanny from [employer]. Thrive Questionnaire Date Thrive assessed: 09/26/23 What is your living situation today?: I have a steady place to live Within the past 12 months, did the food you bought not last and you didn't have the money to get more?: Never true Within the past 12 months, did you worry whether your food would run out before you got money to buy more?: Never true Do you have trouble paying for medicines?: No Do you have trouble getting transportation to medical appointments?: No Do you have trouble paying your heating and electricity bill?: No Do you have trouble taking care of your child, family member or friend?: No Do you have trouble with day-to-day activities such as bathing, preparing meals, shopping, managing finances, etc.?: No Are you currently unemployed and looking for a job?: No Are you interested in more education?: No Please select the resources that you would like help with: None Currently or been in a relationship where the following occur: No concerns rep orted THRIVE Score: 0 AUDIT C Alcohol Use Questionnaire (AUDIT-C) 1. How often do you have a drink containing alcohol?: Monthly or less 2. How many drinks containing alcohol do you have on a typical day when you are drinking?: 1 or 2 3. How often do you have six or more drinks on one occasion?: Never Total Score: 1 ELINOR-7 AMB Questionnaire ELINOR-7 Date ELINOR - 7 assessed: 09/26/23 Feeling nervous, anxious, or on edge: 0 = Not at all Not being able to stop or control worryin = Not at all Worrying too much about different things: 0 = Not at all Trouble relaxin = Not at all Being so restless that it is hard to sit still: 0 = Not at all Becoming easily annoyed or irritable: 0 = Not at all Feeling afraid as if something awful might happen: 0 = Not at all Total ELINOR-7 score (0-4 normal; 5-9 mild; 10-14 moderate; 15-21 severe): 0 Source: Developed by Drs. Miguel Vasquez, Yoon Fink, Osmin Bolton and colleagues, with an educational jovanny from [employer]. ELINOR-7 Assessment Billing ELINOR-7 Assessment Tool: ELINOR-7 Assessment 80398 Review of Systems Const Details: Denies chills, Denies fatigue, Denies fever(s), Denies headache(s) and Denies weakness HEENT Denies change in vision, Denies dizziness, Denies headache(s), Denies hearing loss, Denies nasal congestion, Denies sinus pain, Denies sinus pressure and Denies sore throat Card Denies chest pain, Denies lightheadedness, Denies dyspnea and Denies other (palpitations) Resp Denies cough, Denies dyspnea and Denies wheezing GI Denies abdominal pain, Denies melena, Denies hematochezia, Denies change in bowel habits, Denies dyspepsia and Denies nausea Denies hematuria and Denies dysuria Musc Denies abnormal gait, Denies myalgias, Denies arthralgias, Denies numbness and D enies tingling Skin/Breast Denies rash, Denies unusual bruising and Denies wounds Neuro Denies abnormal gait, Denies dizziness, Denies headache(s), Denies memory loss, Denies numbness, Denies Sensory deficit (Neuro), Denies tingling and Denies weakness Psych Denies anxiety, Denies depression and Denies memory loss Endo Denies cold intolerance, Denies fatigue, Denies heat intolerance, Denies polydipsia and Denies polyuria Alvin/Lymph Denies easy bleeding and Denies easy bruising Aller/Immun Denies wheezing Physical exam (Primary Care) Vital Signs: Last Vital Signs Temp 97.7 F 09/26/23 08:32 Pulse 87 09/26/23 08:32 Resp 14 09/26/23 08:32 BP 104/76 09/26/23 08:32 Pulse Ox 98 09/26/23 08:32 Oxygen Delivery Method Room Air 09/26/23 08:32 BMI result Body Mass Index 42.5 Tobacco/Smoking Status: Tobacco use Status Tobacco use date assessed 09/26/23 09/26/23 08:38 Patient Tobacco Use Status Never used Tobacco 09/26/23 08:38 e-Cigarette/Vaping Use Never Used 09/26/23 08:38 PHQ-9: PHQ-9 Score PHQ-9: Total score 0 09/26/23 08:38 Depression Screening Interpretation: Negative Thrive Assessment: Date of Thrive Assessment Date Thrive assessed 09/26/23 09/26/23 08:38 Currently or been in a relationship where the following occur: No concerns reported Const Other: General: no acute distress, well developed, alert and awake Nutritional Appearance: well nourished Orientation/consciousness: patient oriented x3 HENMT Head: Yes normocephalic and Yes atraumatic Ears: hearing grossly normal bilaterally and TM's normal bilaterally General nose exam: Normal external nose present and Normal nares present Mouth: Normal oral and palatal mucosa present and moist mucous membranes Teeth and gingiva: dentition normal Throat: Yes oropharynx normal Eyes Pupils: Equal, round and reactive pupils present and Pupil accommodation reflex normal EOM: EOMs intact bilaterally Neck Neck: Yes normal visual inspection, Yes no lymphadenopathy and Yes trachea midline Thyroid: Thyroid normal Carotids: no bruits Lymphatic: no lymphadenopathy noted Chest Chest palpation & inspection: normal inspection of the chest Resp Effort & Inspection: normal respiratory effort Auscultation: clear to auscultation bilaterally Cardio Rate: regular rate Rhythm: regular rhythm Heart sounds: S1 normal heart sound present, S2 normal heart sound present, no gallops, no murmurs and no rubs Bruits: no abdominal aortic bruits and no carotid bruits GI Palpation (GI): No Abdominal aortic bruit present, Soft to palpation, nontender, No hepatosplenomegaly present and No Rebound tenderness present Auscultation: normal bowel sounds General: Yes no CVA tenderness Back/Spine/Pelvis Back: no CVA tenderness Cervical Spine: cervical ROM normal and No Cervical spine tenderness Thoracic/Lumbar Spine: thoraco-lumbar ROM normal, No pain with thoraco-lumbar ROM, No thoracic spinal tenderness and No lumbar spinal tenderness Skin General: warm and dry. Normal skin color. Normal skin turgor Lesions: no lesions Rashes: no rashes Trauma: no lacerations or abrasions Wounds: no wounds Nails: normal Neuro General: patient oriented x3, gait normal and CN's II-XI intact bilaterally Cranial nerves: Yes Equal, round and reactive pupils present Cognition (Neuro): normal cognition Gait exam (Neuro): Normal gait present Motor exam (neuro): 5/5 motor strength present throughout Sensory Exam: No Sensory deficit (Neuro) Deep tendon reflexes (DTR's): Right patellar reflex intensity grade: 2+ and Left patellar reflex intensity grade: 2+ Extrem General: Yes normal to inspection, No edema and No calf tenderness Psych Appearance: grossly normal Affect: normal affect Attitude: cooperative Thought process: Normal thought process present Assessment and Plan Assessment & Plan (1) Physical exam, annual: Code(s): Z00.00 - Encounter for general adult medical examination without abnormal findings Plan: No significant physical restrictions or limitations noted Continue current treatment regimen Healthy diet and routine exercise encouraged Advised to get lab work done and follow-up for telehealth visit for labs review in 2-3 weeks Return sooner with symptoms or concerns Verbalized understanding and agreed with the treatment plan (2) Vitamin D deficiency: Code(s): E55.9 - Vitamin D deficiency, unspecified Plan: Has not been taking vitamin D3 Will check vitamin-D levels and make changes as needed (3) Prediabetes: Code(s): R73.03 - Prediabetes Plan: Will check A1c and make changes as needed (4) Hypertriglyceridemia: Code(s): E78.1 - Pure hyperglyceridemia Plan: Will check lipid panel and make changes as needed Advised to limit foods high in saturated fat and avoid foods high in trans fat Routine exercise encouraged Verbalized understanding and agreed with the plan (5) Morbid obesity with BMI of 40.0-44.9, adult: Code(s): E66.01 - Morbid (severe) obesity due to excess calories; Z68.41 - Body mass index [BMI] 40.0-44.9, adult Plan: She currently weighs 255 lb, BMI is 42.5 She was followed by [facility] with management and plan to have bariatric surgery. However, she changed her mind and decided to start making healthy dietary choices and doing physical exercise Healthy diet and routine exercise encouraged Advised to follow-up with symptoms or concerns or if she needs referral for weight loss Verbalized understanding and agreed with the plan (6) Seasonal allergies: Code(s): J30.2 - Other seasonal allergic rhinitis Plan: Lingering cough for the past 1 month; present upon waking up some days in the morning; predominantly nonproductive with occasional wheezing. Lung sounds clear and equal bilaterally. No overt signs of infection. Likely allergies. Zyrtec ordered, advised to take as prescribed; instructed on the risks, benefits, and potential adverse reactions of the medications. Follow-up with worsening or new symptoms. Verbalized understanding and agreed with treatment plan. (7) Laboratory tests ordered as part of a complete physical exam (CPE): Code(s): Z00.00 - Encounter for general adult medical examination without abnormal findings Plan: Fasting labs ordered as part of a complete physical exam. Advised to fast for at least 10 hours before getting labs drawn. May drink water Verbalized understanding and agreed with treatment plan. Orders: Orders Vitamin D 25-OH Total Today E55.9 - Vitamin D deficiency, unspecified Hemoglobin A1c Today R73.03 - Prediabetes Lipid Panel Today E78.1 - Pure hyperglyceridemia UA CC w/rflx Micro + Cult Today Z00.00 - Encounter for general adult medical examination without abnormal findings Medications: New cetirizine (Zyrtec) 10 mg PO DAILY 30 days 30 tabs 3RF Coding Level of Care Code Est Pt Level 4 (76266) Est Pt Prev Care 18-39y(47086) Diagnoses Physical exam, annual Z00.00 Vitamin D deficiency E55.9 Prediabetes R73.03 Hypertriglyceridemia E78.1 Morbid obesity with BMI of 40.0-44.9, adult E66.01; Z68.41 Seasonal allergies J30.2 Laboratory tests ordered as part of a complete physical exam (CPE) Z00.00 Additional Codes ELINOR-7 Assessment Billing - ELINOR-7 Assessment Tool: ELINOR-7 Assessment 44446 ([id number])
== END 2023-09-26 09:06 | disposition home or self-care (01) ==
PROVIDERS: PCP Nurse Practitioner Family; Visit Provider Nurse Practitioner Family
DX: Z00.00 Encounter for general adult medical examination without abnormal findings (principal); J30.2 Other seasonal allergic rhinitis; E66.01 Morbid (severe) obesity due to excess calories; Z68.41 Body mass index [BMI] 40.0-44.9, adult; R73.03 Prediabetes; E55.9 Vitamin D deficiency, unspecified; E78.1 Pure hyperglyceridemia
CPT/HCPCS: 99214; 99395

== ENCOUNTER 2023-11-08 06:48 | Outpatient (REF) | payer OTHER, SELFPAY ==
[2023-11-08 11:11] LABS: Appearance Urine Cloudy; Color Urine Yellow; Glucose Urine UA Negative (Negative); Leukocyte Esterase Urine Negative (Negative); Nitrite Urine Negative (Negative); PH 6.5 (5.0-9.0); Specific Gravity - Urine 1.015 (1.005-1.025); UMIC TRIGGER UACC YES; Urine Blood Large (3+) (Negative); Urine Ketones Negative (Negative); Urine Protein Negative (Neg-Trace)
[2023-11-08 11:17] LABS: Estimated Average Glucose 117 mg/dL; Hemoglobin A1c % 5.7 % (<6.0)
[2023-11-08 11:31] LABS: Bacteria Urine Trace (None Seen); Hyaline Casts Urine 0-2 /LPF (0-2); RBC Urine 0-2 /HPF (0-2); WBC Urine 0-5 /HPF (0-5)
[2023-11-08 11:32] LABS: Cholesterol 178 mg/dL (<200); HDL Cholesterol 47 mg/dL (>40); LDL Cholesterol Calculated 108 mg/dL (<100); Triglycerides 119 mg/dL (<150)
[2023-11-08 11:41] LABS: Vitamin D 25-OH Total 33.7 ng/mL (>30)
== END 2023-11-08 06:49 | disposition home or self-care (01) ==
LOC: HO.HMGCLDS 06:48
PROVIDERS: PCP Nurse Practitioner Family; Visit Provider Nurse Practitioner Family
DX: R73.03 Prediabetes (principal); E55.9 Vitamin D deficiency, unspecified; E78.1 Pure hyperglyceridemia
CPT/HCPCS: 36415; 80061; 81001; 82306; 83036

== ENCOUNTER 2023-11-25 14:54 | Outpatient (AMB) | payer OTHER, SELFPAY ==
--- NOTE | 2023-11-25 14:50 | MHC.PC.OV ---
Intake Visit Reasons: follow up results Intake Note: patient here for lab follow up. 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 Daughter No problems noted. Daughter No problems noted. 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 Miguel Vasquez, Yoon Fink, Osmin Bolton and colleagues, with an educational jovanny from [employer] Review of Systems Const Details: Const Denies chills, Denies fatigue, Denies fever(s), Denies headache(s) and Denies weakness ENT Denies dizziness and Denies headache(s) Card Denies chest pain, Denies lightheadedness, Denies dyspnea and Denies other (Palpitations) Resp Denies cough, Denies dyspnea, Denies wheezing and Denies other ( shortness of breath) GI Denies abdominal pain, Denies melena, Denies hematochezia, Denies change in bowel habits, Denies dyspepsia and Denies nausea Denies hematuria and Denies dysuria Musc Denies abnormal gait, Denies myalgias, Denies arthralgias, Denies numbness and Denies tingling Skin/Breast Denies rash, Denies unusual bruising and Denies wounds Neuro Denies abnormal gait, Denies dizziness, Denies headache(s), Denies memory loss, Denies numbness, Denies Sensory deficit (Neuro), Denies tingling and Denies weakness Psych Denies anxiety, Denies depression, Denies memory loss Endo Denies cold intolerance, Denies fatigue, Denies heat intolerance, Denies polydipsia and Denies polyuria Aller/Immun Denies wheezing Physical exam (Primary Care) Tobacco/Smoking Status: Tobacco use Status Tobacco use date assessed 09/26/23 09/26/23 08:38 Patient Tobacco Use Status Never used Tobacco 09/26/23 08:38 e-Cigarette/Vaping Use Never Used 09/26/23 08:38 Thrive Assessment: Date of Thrive Assessment Date Thrive assessed 09/26/23 09/26/23 08:38 Const Other: Telehealth visit. No physical exam Telehealth Telehealth Telehealth Platform: Telephone Location of provider rendering services: practice address Location of patient: address on file Patient Identification confirmed using: Name, : Yes Telehealth method: voice only Patient verbally consented to treatment: Yes Patient verbally consented to billing insurance company: Yes Patient informed of any privacy concerns related to visit: Yes Assessment and Plan Assessment & Plan (1) Prediabetes: Code(s): R73.03 - Prediabetes Plan: Recent lab results reviewed with the patient Recent A1c is 5.7%. Previous A1c was 5.7% Healthy diet and routine exercise encouraged Advised to schedule her next physical exam for on or after 09/25/2024 Return with symptoms or concerns Verbalized understanding and agreed with the treatment plan (2) Vitamin D deficiency: Code(s): E55.9 - Vitamin D deficiency, unspecified Plan: Recent vitamin-D level is the low end of normal, 33.7 Will start vitamin D3 1000 units daily. Advised to take as prescribed Follow-up with symptoms or concerns Verbalized understanding and agreed with the treatment plan (3) Hypertriglyceridemia without hypercholesterolemia: Code(s): E78.1 - Pure hyperglyceridemia Plan: Recent triglyceride level is normal, 119; previous level was 175. Total cholesterol, LDL, and HDL levels are normal, 178, 108, and 47 respectively Advised to limit foods high in saturated fat and avoid foods high in trans fat Routine exercise encouraged Will recheck lipid panel levels at her next physical exam Verbalized understanding and agreed with the plan Medications: New cholecalciferol (vitamin D3) 25 mcg PO DAILY 90 days 90 tabs 2RF Coding Level of Care Code Tele New Pt Level 3 (33176) Diagnoses Prediabetes R73.03 Vitamin D deficiency E55.9 Hypertriglyceridemia without hypercholesterolemia E78.1 Time Spent (min) 15
== END 2023-11-25 16:06 | disposition home or self-care (01) ==
LOC: HO.HMGFM 14:54
PROVIDERS: PCP Nurse Practitioner Family; Visit Provider Nurse Practitioner Family
DX: R73.03 Prediabetes (principal); E55.9 Vitamin D deficiency, unspecified; E78.1 Pure hyperglyceridemia
CPT/HCPCS: 99213

== ENCOUNTER 2024-04-30 15:09 | Outpatient (AMB) | payer OTHER, SELFPAY ==
--- NOTE | 2024-04-30 15:15 | MHC.PC.OV ---
Vital Signs 04/30/24 15:19 04/30/24 16:01 Height 5 ft 5 in Weight 272 lb 8 oz BMI 45.3 BP 159/73 H 150/90 H Blood Pressure Location Rt brachial Rt brachial Position Sitting Sitting Respiration 16 Pulse 80 Pulse Source Pulse Oximeter Temp 97.8 F Temp Source Oral Pulse Oximetry (%) 100 Oxygen Delivery Method Room Air Intake Visit Reasons: headaches Intake Note: patient here c/o headaches for 2-3 weeks every 2 days she stated when she her BP is high she gets a headache. 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 Is last menstrual period known: Yes Last menstrual period: 04/02/24 Post menopausal: No Patient : No Allergies No Known Allergies Allergy (Verified 04/30/24 15:54) Medication List - Last Reconciled 04/30/24 by Geraldine Jasso CNP cholecalciferol (vitamin D3) 25 mcg PO DAILY 90 days Tobacco use date assessed: 04/30/24 Dental Screening Dental Screen Date: 04/30/24 Did you have a dental visit in the last 12 months?: No Did you have a dental problem in the last 6 months where you did not have access to dental care?: No Was dental information given to patient?: Patient has dentist HPI HPI Comments History of Present Illness Details 39-year-old female, accompanied by her , presents with complaints of headaches She notes that she has been experiencing intermittent headaches for the past 3 weeks. She notes visual disturbances and seeing floaters before the headaches. Her blood pressure is sometimes elevated when she has a headache. Highest BP has been 150/89 when checked by the nurse at her workplace. She experiences the headaches 2-3 days weekly, lasting 1 hour or more. Ibuprofen provides complete relief. She has not experience headache this week. She usually get an eye exam every 2 years. She is due for an eye exam this year. She notes that her mother has history for hypertension and started taking antihypertensives in her 40s. PENDING SALE TO [facility] Medical History Chronic headaches Morbid obesity No pertinent past medical history Surgical History Hx of tubal ligation H/O: Family History Mother HTN (hypertension) Diabetes Father No problems noted. Daughter No problems noted. Daughter No problems noted. 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 1. Little interest or pleasure in doing things: not at all 2. Feeling down, depressed, or hopeless: not at all 3. Trouble falling or staying asleep, or sleeping too much: not at all 4. Feeling tired or having little energy: not at all 5. Poor appetite or overeating: not at all 6. Feeling bad about yourself - or that you are a failure or have let yourself or your family down: not at all 7. Trouble concentrating on things, such as reading the newspaper or watching television: not at all 8. Moving or speaking so slowly that other people could have noticed. Or the opposite - being so fidgety or restless that you have been moving around a lot more than usual: not at all 9. Thoughts that you would be better off or of hurting yourself in some way: not at all Total score: 0 Depression Screening Interpretation: Negative Depression Screening Done: Yes Source: Developed by Drs. Miguel Vasquez, Yoon Fink, Osmin Bolton and colleagues, with an educational jovanny from [employer]. Thrive Questionnaire Date Thrive assessed: 09/26/23 I am a: Patient What is your living situation today?: I have a steady place to live Within the past 12 months, did the food you bought not last and you didn't have the money to get more?: Often true Within the past 12 months, did you worry whether your food would run out before you got money to buy more?: Often true Do you have trouble paying for medicines?: No Do you have trouble getting transportation to medical appointments?: No Do you have trouble paying your heating and electricity bill?: No Do you have trouble taking care of your child, family member or friend?: No Do you have trouble with day-to-day activities such as bathing, preparing meals, shopping, managing finances, etc.?: No Are you currently unemployed and looking for a job?: No Are you interested in more education?: No Please select the resources that you would like help with: None Currently or been in a relationship where the following occur: No concerns reported THRIVE Score: 2 AUDIT C Alcohol Use Questionnaire (AUDIT-C) 1. How often do you have a drink containing alcohol?: 2-4 times a month 2. How many drinks containing alcohol do you have on a typical day when you are drinking?: 1 or 2 3. How often do you have six or more drinks on one occasion?: Less than monthly Total Score: 3 ELINOR-7 AMB Questionnaire ELINOR-7 Date ELINOR - 7 assessed: 09/26/23 Feeling nervous, anxious, or on edge: 0 = Not at all Not being able to stop or control worryin = Not at all Source: Developed by Drs. Miguel Vasquez, Yoon Fink, Osmin Bolton and colleagues, with an educational jovanny from [employer]. Review of Systems Const Details: Const Denies chills, Denies fatigue, Denies fever(s), Denies headache(s) and Denies weakness ENT Denies dizziness and Denies headache(s) Card Denies chest pain, Denies lightheadedness, Denies dyspnea and Denies other (Palpitations) Resp Denies cough, Denies dyspnea, Denies wheezing and Denies other ( shortness of breath) GI Denies abdominal pain, Denies melena, Denies hematochezia, Denies change in bowel habits, Denies dyspepsia and Denies nausea Denies hematuria and Denies dysuria Musc Denies abnormal gait, Denies myalgias, Denies arthralgias, Denies numbness and Denies tingling Skin/Breast Denies rash, Denies unusual bruising and Denies wounds Neuro Denies abnormal gait, Denies dizziness, Denies headache(s), Denies memory loss, Denies numbness, Denies Sensory deficit (Neuro), Denies tingling and Denies weakness Psych Denies anxiety, Denies depression, Denies memory loss Endo Denies cold intolerance, Denies fatigue, Denies heat intolerance, Denies polydipsia and Denies polyuria Aller/Immun Denies wheezing Physical exam (Primary Care) Vital Signs: Last Vital Signs Temp 97.8 F 04/30/24 15:19 Pulse 80 04/30/24 15:19 Resp 16 04/30/24 15:19 BP 159/73 H 04/30/24 15:19 Pulse Ox 100 04/30/24 15:19 Oxygen Delivery Method Room Air 04/30/24 15:19 BMI result Body Mass Index 45.3 Tobacco/Smoking Status: Tobacco use Status Tobacco use date assessed 04/30/24 04/30/24 15:23 Patient Tobacco Use Status Never used Tobacco 04/30/24 15:17 e-Cigarette/Vaping Use Never Used 04/30/24 15:17 PHQ-9: PHQ-9 Score PHQ-9: Total score 0 04/30/24 15:17 Depression Screening Interpretation: Negative Thrive Assessment: Date of Thrive Assessment Date Thrive assessed 09/26/23 04/30/24 15:17 Currently or been in a relationship where the following occur: No concerns reported Const Other: General: no acute distress and well developed Nutritional Appearance: well nourished Orientation/consciousness: patient oriented x3 HENMT Head: Yes normocephalic and Yes atraumatic Eyes General: appearance normal, both eyes and all related structures Pupils: Equal, round and reactive pupils present EOM: EOMs intact bilaterally Resp Effort & Inspection: normal respiratory effort Auscultation: clear to auscultation bilaterally Cardio Rate: regular rate Rhythm: regular rhythm Heart sounds: S1 normal heart sound present, S2 normal heart sound present, no gallops, no murmurs and no rubs GI Palpation (GI): No Abdominal aortic bruit present, Soft to palpation, nontender, No hepatosplenomegaly present and No Rebound tenderness present Auscultation: normal bowel sounds General: Yes no CVA tenderness Back/Spine/Pelvis Back: no CVA tenderness Cervical Spine: cervical ROM normal and No Cervical spine tenderness Thoracic/Lumbar Spine: thoraco-lumbar ROM normal, No pain with thoraco-lumbar ROM, No thoracic spinal tenderness and No lumbar spinal tenderness Extrem General: Yes normal to inspection, No edema and No calf tenderness Skin General: warm and dry. Normal skin color. Normal skin turgor Neuro General: patient oriented x3, gait normal and no focal neuro deficit Cranial nerves: Yes Equal, round and reactive pupils present Cognition (Neuro): normal cognition Gait exam (Neuro): Normal gait present Sensory Exam: No Sensory deficit (Neuro) Psych Appearance: grossly normal Affect: normal affect Attitude: cooperative Thought process: Normal thought process present Coding Level of Care Code Est Pt Level 4 (83086) Diagnoses Hypertension I10 Assessment & Plan Assessment & Plan (1) Hypertension: Code(s): I10 - Essential (primary) hypertension Category: Medical Plan: Blood pressure today is 150/90, above goal of less than 140/90. She admits to maintaining low-sodium diet. Her mother has history of hypertension. Her headaches may be attributed to elevated blood pressure. Will start lisinopril 20 mg daily; advised to take as prescribed. Instructed on the risks, benefits, and potential adverse reactions of the medication. Encouraged to check her blood pressure 2 to 3 times a week, record readings, and bring to next appointment. Advised to schedule an eye exam with her route sales associate as soon as possible. Follow-up in 1 week or sooner with symptoms or concerns. Verbalized understanding and agreed with treatment. Medications: New lisinopril 20 mg PO DAILY 30 days 30 tabs 3RF
[2024-04-30 15:19] VITALS: BP 159/73; PULSE 80; RESP 16; TEMP 36.6; O2SAT 100; BMI 45.3
[2024-04-30 16:01] VITALS: BP 150/90
== END 2024-04-30 16:09 | disposition home or self-care (01) ==
PROVIDERS: PCP Nurse Practitioner Family; Visit Provider Nurse Practitioner Family
DX: I10 Essential (primary) hypertension (principal)

== ENCOUNTER → 2024-04-30 15:09 | Outpatient (BNVA) | payer OTHER, SELFPAY | PROVIDERS: PCP Nurse Practitioner Family; Visit Provider Nurse Practitioner Family | DX: I10 Essential (primary) hypertension (principal) | CPT/HCPCS: 99212 ==

== ENCOUNTER 2024-05-07 15:41 | Outpatient (AMB) | payer OTHER, SELFPAY ==
--- OUTSIDE RECORDS SUMMARY | 2024-05-07 15:43 | XMS_ITS | Clinical Summary ---
Author Organization [facility] Address [address] [place] [address] Care Team Providers Care Composite Layup Worker Name Role Phone Non-[facility], Provider Primary Care Provider [phone] Source Comments PLEASE NOTE, if this patient is a minor, it may be UNLAWFUL to discuss sensitive information that is contained in these records (such as FAMILY PLANNING, MENTAL HEALTH or SUBSTANCE ABUSE) with the minor patient's parent or other person without the patient's specific authorization.[facility] Allergies No known active allergies Medications ibuprofen (ADVIL,MOTRIN) 600 mg tabletIndicatio ns:Acute midline low back pain without sciatica Take 1 Tab by mouth 4 (four) times daily as needed for pain 30 Tab 0 7 Active loratadine (CLARITIN) 10 mg tabletIndicatio ns:Environmenta l allergies Take 1 Tab by mouth once daily as needed for allergies 30 Tab 2 7 Active metroNIDAZOLE (METROGEL) 0.75 % vaginal gelIndications: Acute vaginitis Place 1 Applicator vaginally nightly at bedtime 70 g 7 Active Active Problems Problem Noted Date Diagnosed Date Gynecologic exam normal 01/09/2017 Overview (01/09/2017): Last pap smear 01/09/2017 Exam WNL Physical exam 12/18/2016 Overview (12/18/2016): Last physical 12/18/2016 Due for dental exam and eye exam Declined flu shot because of illness Due for pap smear Left foot pain 12/18/2016 Overview (12/18/2016): 12/18/2016 - No deformities or swelling noted Advised patient to try a different shoe. Likely cause is that the shoes do not fit. If symptoms worsen or persist, return to clinic. Pain in ankle 08/10/2014 Tubal ligation status 06/16/2013 Health examination of defined subpopulation 04/24 Obesity 05/09/2010 Overview (12/18/2016): 12/18/2016 - Goal is to loose 10 lbs in 3 months Increase vegetables, half of plate should be vegetables Increase exercise, 30 min minimum daily Limit juice and soda Drink plenty of water TV/screen time is 1-2 hours maximum daily Resolved Problems Problem Noted Date Diagnosed Date Resolved Date Acute vaginitis 01/09/2017 11/10/2020 Overview (01/09/2017): 01/08/2017 No scented vaginal sprays, soaps or products Urinate after intercourse Use cotton underwear No underwear to bed No douching May use water or mild soap to clean the vaginal area. Immunizations Name Administration Dates Next Due Flu, Multi Dose 0.5 ML 05/27/2016 Hep B, Adult/Adol (ENERGIX/RECOMBIVAX) 7 INFLUENZA, UNSPECIFIED 02/26/2012 PPD 05/24/2016 TDAP 05/24/2016 Td (adult) unspecified 02/26/2012 Family History Medical History Relation Name Comments Heart Problems Maternal Grandfather Diabetes Maternal Grandmother Diabetes Mother Hypertension Mother Diabetes Paternal Grandfather Alcohol/Drug Abuse Neg Arthritis Neg Depression Neg High Cholesterol Neg Kidney disease Neg Mental illness Neg Stroke Neg Unknown Neg Vision Problems Neg Relation Name Status Comments Maternal Grandfather Maternal Grandmother Mother Paternal Grandfather Social History Tobacco Use Types Packs/Day Years Used Date Smoking Tobacco: Never Smokeless Tobacco: Never Tobacco Cessation:Counseling Given: Yes Alcohol Use Standard Drinks/Week Comments Yes 0 (1 standard drink = 0.6 oz pure alcohol) very rare, sometimes a glass of wine. Social Connections Answer Date Recorded Connectedness 0 11/29/2023 Financial Resource Strain Answer Date R ecorded Financial Resource Strain 0 2018 Stress Answer Date Recorded Stress 0 11/09/2018 Physical Activity Answer Date Recorded Physical Activity 0 11/09/2018 Food Insecurity Answer Date Recorded Food 0 12/18/2023 Transportation Needs Answer Date Record ed Transportation 0 11/09/2018 Housing Stability Answer Date Recorded Housing 0 11/09/2018 Safety and Environment Answer Date Graeme rded Safety 0 12/18/2016 Utilities Answer Date Recorded Utilities 0 11/09/2018 Employment Answer Date Recorded Employment 0 11/09/2018 Comments No Sex and Gender Information Value Date Recorded Sex Assigned at Female 12/18/2016 6:58 AM PDT Legal Sex Female 10:56 PM PDT Gender Identity Female 12/18/2016 6:58 AM PDT Sexual Orientation Straight 12/18/2016 6: 58 AM PDT Occupation Industry Job Start Date Job End Date [employer] Not on file Not on file Not on file Last Filed Vital Signs Vital Sign Reading Time Taken Comments Blood Pressure 130/83 01/09/2017 2:12 PM EDT Pulse 91 01/09/2017 2:12 PM EDT Temperature 36.8 ??C (98.2 ??F) 05/27/2016 9:11 AM ES T Respiratory Rate - - Oxygen Saturation 97% 12/18/2016 9:32 AM EDT Inhaled Oxygen Concentration - - Weight 112 kg (247 lb) 01/09/2017 2:12 PM EDT Height 165.1 cm (5' 5 ) 01/09/2017 2:12 PM EDT Body Mass Index 41.1 01/09/2017 2:12 PM EDT Plan of Treatment Not on file Insurance [employer] Care Teams Composite Layup Worker Relationship Specialty Start Date End Date Non-[facility], Provider [address] [place] [id number] PCP - General Cloth Examiner 01/18/19
--- NOTE | 2024-05-07 15:51 | A.OFFPC_ITS ---
Vital Signs 05/07/24 15:52 Height 5 ft 5 in Weight 267 lb 2 oz BMI 44.4 BP 114/70 Blood Pressure Location Rt brachial Position Sitting Respiration 14 Pulse 83 Pulse Source Pulse Oximeter Temp 98.6 F Temp Source Oral Pulse Oximetry (%) 99 Oxygen Delivery Method Room Air Intake Visit Reasons: 1 wk HTN Intake Note: htn follow up Allergies No Known Allergies Allergy (Verified 05/07/24 16:04) Medication List - Last Reconciled 05/07/24 by Geraldine Jasso CNP cholecalciferol (vitamin D3) 25 mcg PO DAILY 90 days lisinopril 20 mg PO DAILY 30 days Tobacco use date assessed: 04/30/24 Dental Screening Dental Screen Date: 04/30/24 HPI HPI Comments History of Present Illness Details 39-year-old female presents for hyperten danny follow-up. She admits to taking lisinopril as prescribed without adverse reactions. She has not experienced headaches since the last time reported during her last visit. She offers no complaints and denies acute symptoms at this time. [facility] Medical History Chronic headaches Morbid obesity No pertinent past medical history Surgical History Hx of tubal ligation H/O: Family History Mother HTN (hypertension) Diabetes Father No problems noted. Daughter No problems noted. Daughter No problems noted. 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 Current occupational exposures/hazards: No Sexual orientation: Straight/Heterosexual Gender identity: Female Cognitive needs: No Hearing needs: No Vision needs: No Female Reproductive History Menstrual Age of Menarche: 9 Questionnaire Thrive Questionnaire Date Thrive assessed: 04/30/24 I am a: Patient What is your living situation today?: I have a steady place to live Within the past 12 months, did the food you bought not last and you didn't have the money to get more?: Often true Within the past 12 months, did you worry whether your food would run out before you got money to buy more?: Often true Do you have trouble paying for medicines?: No Do you have trouble getting transportation to medical appointments?: No Do you have trouble paying your heating and electricity bill?: No Do you have trouble taking care of your child, family member or friend?: No Do you have trouble with day-to-day activities such as bathing, preparing meals, shopping, managing finances, etc.?: No Are you currently unemployed and looking for a job?: No Are you interested in more education?: No Please select the resources that you would like help with: None Currently or been in a relationship where the following occur: No concerns reported THRIVE Score: 2 ELINOR-7 AMB Questionnaire ELINOR-7 Date ELINOR - 7 assessed: 09/26/23 Worrying too much about different things: 0 = Not at all Trouble relaxin = Not at all Being so restless that it is hard to sit still: 0 = Not at all Becoming easily annoyed or irritable: 0 = Not at all Feeling afraid as if something awful might happen: 0 = Not at all Source: Developed by Drs. Miguel Vasquez, Yoon Fink, Osmin Bolton and colleagues, with an educational jovanny from [employer]. Review of Systems Const Details: Const Denies chills, Denies fatigue, Denies fever(s), Denies headache(s) and Denies weakness ENT Denies dizziness and Denies headache(s) Card Denies chest pain, Denies lightheadedness, Denies dyspnea and Denies other (Palpitations) Resp Denies cough, Denies dyspnea, Denies wheezing and Denies other ( shortness of breath) GI Denies abdominal pain, Denies melena, Denies hematochezia, Denies change in bowel habits, Denies dyspepsia and Denies nausea Denies hematuria and Denies dysuria Musc Denies abnormal gait, Denies myalgias, Denies arthralgias, Denies numbness and Denies tingling Skin/Breast Denies rash, Denies unusual bruising and Denies wounds Neuro Denies abnormal gait, Denies dizziness, Denies headache(s), Denies memory loss, Denies numbness, Denies Sensory deficit (Neuro), Denies tingling and Denies weakness Psych Denies anxiety, Denies depression, Denies memory loss Endo Denies cold intolerance, Denies fatigue, Denies heat intolerance, Denies polydipsia and Denies polyuria Aller/Immun Denies wheezing Physical exam (Primary Care) Vital Signs: Last Vital Signs Temp 98.6 F 05/07/24 15:52 Pulse 83 05/07/24 15:52 Resp 14 05/07/24 15:52 BP 104/60 05/07/24 15:52 Pulse Ox 99 05/07/24 15:52 Oxygen Delivery Method Room Air 05/07/24 15:52 BMI result Body Mass Index 44.4 Tobacco/Smoking Status: Tobacco use Status Tobacco use date assessed 04/30/24 05/07/24 15:53 Patient Tobacco Use Status Never used Tobacco 05/07/24 15:53 e-Cigarette/Vaping Use Never Used 05/07/24 15:53 Thrive Assessment: Date of Thrive Assessment Date Thrive assessed 04/30/24 05/07/24 15:53 Currently or been in a relationship where the following occur: No concerns reported Const Other: General: no acute distress and well developed Nutritional Appearance: well nourished Orientation/consciousness: patient oriented x3 HENMT Head: Yes normocephalic and Yes atraumatic Eyes General: appearance normal, both eyes and all related structures Pupils: Equal, round and reactive pupils present EOM: EOMs intact bilaterally Resp Effort & Inspection: normal respiratory effort Auscultation: clear to auscultation bilaterally Cardio Rate: regular rate Rhythm: regular rhythm Heart sounds: S1 normal heart sound present, S2 normal heart sound present, no gallops, + murmurs and no rubs GI Palpation (GI): No Abdominal aortic bruit present, Soft to palpation, nontender, No hepatosplenomegaly present and No Rebound tenderness present Auscultation: normal bowel sounds General: Yes no CVA tenderness Back/Spine/Pelvis Back: no CVA tenderness Cervical Spine: cervical ROM normal and No Cervical spine tenderness Thoracic/Lumbar Spine: thoraco-lumbar ROM normal, No pain with thoraco-lumbar ROM, No thoracic spinal tenderness and No lumbar spinal tenderness Extrem General: Yes normal to inspection, No edema and No calf tenderness Skin General: warm and dry. Normal skin color. Normal skin turgor Neuro General: patient oriented x3, gait normal and no focal neuro deficit Cranial nerves: Yes Equal, round and reactive pupils present Cognition (Neuro): normal cognition Gait exam (Neuro): Normal gait present Sensory Exam: No Sensory deficit (Neuro) Psych Appearance: grossly normal Affect: normal affect Attitude: cooperative Thought process: Normal thought process present Coding Level of Care Code Est Pt Level 4 (15557) Diagnoses Essential hypertension I10 Murmur R01.1 Assessment & Plan Assessment & Plan (1) Essential hypertension: Code(s): I10 - Essential (primary) hypertension Category: Medical Plan: Resting blood pressure is 114/70, within goal of less than 140/90. Continue current treatment regimen. Follow-up in 1 month or sooner with symptoms or concerns. Verbalized understanding and agreed with treatment plan. (2) Murmur: Code(s): R01.1 - Cardiac murmur, unspecified Category: Medical Plan: Systolic murmur present. Echocardiogram ordered. Will review results and make changes as needed. Follow-up with symptoms or concerns. Verbalized understanding and agreed with the plan. Orders: Orders CA echo transthoracic complete Today R01.1 - Cardiac murmur, unspecified
[2024-05-07 15:52] VITALS: BP 114/70; PULSE 83; RESP 14; TEMP 37; O2SAT 99; BMI 44.4
== END 2024-05-07 16:13 | disposition home or self-care (01) ==
PROVIDERS: PCP Nurse Practitioner Family; Visit Provider Nurse Practitioner Family
DX: I10 Essential (primary) hypertension (principal); R01.1 Cardiac murmur, unspecified

== ENCOUNTER → 2024-05-07 15:41 | Outpatient (BNVA) | payer OTHER, SELFPAY | PROVIDERS: PCP Nurse Practitioner Family; Visit Provider Nurse Practitioner Family | DX: R01.1 Cardiac murmur, unspecified (principal); I10 Essential (primary) hypertension | CPT/HCPCS: 99212 ==

== ENCOUNTER 2024-05-10 12:30 | Outpatient (AMB) | payer OTHER, SELFPAY ==
--- OUTSIDE RECORDS SUMMARY | 2024-05-10 12:32 | XMS_ITS | Clinical Summary ---
Author Organization [facility] Address [address] [place] [address] Care Team Providers Care Grape Picker Name Role Phone Non-Sechc, Provider Primary Care Provider [phone] Source Comments PLEASE NOTE, if this patient [...] file Insurance [employer] Care Teams Grape Picker Relationship Specialty Start Date End Date Non-Sechc, Provider [address] [place] [address] PCP - General Solar Installation Helper 01/18/19
[2024-05-10 12:36] VITALS: BP 120/82; PULSE 75; O2SAT 99
--- NOTE | 2024-05-10 12:36 | AM.OFFWIN_ITS ---
Intake Vital Signs 05/10/24 12:36 Weight 268 lb BP 120/82 Blood Pressure Location Lt brachial Position Sitting Pulse 75 Pulse Source Pulse Oximeter Pulse Oximetry (%) 99 Oxygen Delivery Method Room Air Intake Visit Reasons: EP bilat knee pain Intake Note: Patient here for right knee pain that has been present since friday. mentioned she feels like the bone is rubbing. Patient Tobacco Use Status: Never used Tobacco Allergies No Known Allergies Allergy (Verified 05/10/24 12:42) Do you need a note to return to daycare/school/sports/work: No HPI HPI Comments History of Present Illness Details 39 y/o female patient who presents to [facility] walk [facility] with c/o right knee pain since Friday. She usually have pain on both knees, but right > left. Denies injury or trauma to the knees. [facility] Medical History (Updated 05/10/24 @ 12:52 by Blanca Raymond NP) Right knee pain Chronic headaches Morbid obesity No pertinent past medical history Surgical History Hx of tubal ligation H/O: Family History Mother HTN (hypertension) Diabetes Father No problems noted. Daughter No problems noted. Daughter No problems noted. 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: No Sexual orientation: Straight/Heterosexual Gender identity: Female Cognitive needs: No Hearing needs: No Vision needs: No Female Reproductive History Menstrual Age of Menarche: 9 Review of Systems Const All systems reviewed & are unremarkable except as noted in HPI and below Physical Exam Vital Signs: Last Vital Signs Pulse 75 05/10/24 12:36 BP 120/82 05/10/24 12:36 Pulse Ox 99 05/10/24 12:36 Oxygen Delivery Method Room Air 05/10/24 12:36 Const General: cooperative and no acute distress Nutritional Appearance: obese Orientation/consciousness: patient oriented x3 Neuro General: patient oriented x3, gait normal and moves all extremities Extrem Right lower extremity: knee Details: normal to inspection, tenderness Location: of the patella Details: medially and laterally and normal ROM; no swelling, no ecchymosis and no crepitus Left lower extremity: knee Details: normal to inspection, tenderness Location: of the patella and normal ROM; no swelling, no ecchymosis, no crepitus and no deformity Assessment & Plan Assessment & Plan (1) Right knee pain: Code(s): M25.561 - Pain in right knee Qualifiers: Chronicity: chronic Qualified Code(s): M25.561 - Pain in right knee; G89.29 - Other chronic pain Plan: Ordered Physical Therapy NSAIDs and Acetaminophen Ordered Muscle relaxants Knee Brace Orders: Orders PT Evaluation and Treatment Today G89.29 - Other chronic pain, M25.561 - Pain in right knee Medications: New cyclobenzaprine 5 mg PO BEDTIME 10 tabs 0RF G89.29 - Other chronic pain, M25.561 - Pain in right knee ibuprofen 800 mg PO Q8H 20 tabs 0RF G89.29 - Other chronic pain, M25.561 - Pain in right knee Coding Level of Care Code Est Pt Level 4 (78096) Diagnoses Chronic pain of right knee M25.561; G89.29 Chronicity: chronic Time Spent (min) 20
== END 2024-05-10 12:51 | disposition home or self-care (01) ==
PROVIDERS: PCP Nurse Practitioner Family; Visit Provider Nurse Practitioner Family
DX: M25.561 Pain in right knee (principal); G89.29 Other chronic pain

== ENCOUNTER → 2024-05-10 12:30 | Outpatient (BNVA) | payer OTHER, SELFPAY | PROVIDERS: PCP Nurse Practitioner Family | DX: M25.561 Pain in right knee (principal); G89.29 Other chronic pain | CPT/HCPCS: 99212 ==

== ENCOUNTER → 2024-05-21 15:04 | Outpatient (REF) | payer OTHER, SELFPAY ==
--- NOTE | 2024-05-21 15:07 | CA_ITS ---
Transthoracic Echocardiogram Patient (Last, First, Middle): Andree Quintero, Gender: Female Date of : 1985 Age: 39 Procedure Date: 05/21/2024 Procedure Type: Transthoracic Echocardiogram Location: OP Height: 165.1 cm Weight: 120.2 kg BSA: 2.23 m2 Heart Rate: bpm BP: 130 / 90 mmHg Manager Education: [place] Referring MD: Geraldine Jasso CNP Symptoms: R01.1 - Cardiac murmur, unspecified Study Quality: Adequate ECG Rhythm: Sinus Conclusions: - Normal left ventricular size and systolic function. There is mildly increased left ventricular wall thickness. The visually estimated ejection fraction is between 55-60%. There is no evidence of regional wall motion abnormalities. Diastolic function is normal for age. - Normal right ventricular cavity size and systolic function. Findings Left Ventricle Normal left ventricular size and systolic function. There is mildly increased left ventricular wall thickness. The visually estimated ejection fraction is between 55-60%. There is no evidence of regional wall motion abnormalities. Diastolic function is normal for age. Right Ventricle Normal right ventricular cavity size and systolic function. Atria The left atrium is normal in size. The right atrium is normal in size. Aortic Valve Normal aortic valve structure and function. There is no aortic valve stenosis. There is no aortic valve regurgitation. Mitral Valve The mitral valve appears normal. There is no mitral valve regurgitation. There is no mitral valve stenosis. Pulmonic Valve The pulmonic valve is likely normal. Tricuspid Valve Normal tricuspid valve structure. There is no tricuspid valve regurgitation. Normal right atrial pressure. There is no evidence of pulmonary hypertension. Great Vessels All visible segments of the aorta are normal in size. The visualized portions of the pulmonary artery and branches are normal. Venous The inferior vena cava is normal in size and collapses greater than 50% with inspiration. Pericardium/Pleural There is no evidence of pericardial effusion. Prior Study Comparison No prior study available for comparison. Measurements 2D Linear Measurements IVSd: 1.01 0.6-0.9/0.6-1.0 cm LVIDd: 4.97 3.9-5.3/4.2-5.9 cm LVIDd Index: 2.23 2.4-3.2/2.2-3.1 cm/m2 LVIDs: 2.85 2.0-3.6 cm LVPWd: 1.02 0.7-1.1 cm Ao Root: 3.00 2.1-3.5 cm LA Diam: 4.20 2.7-3.8/3.0-4.0 cm LAIDs Index: 1.88 1.5-2.3 cm/m2 LV Mass: 229.05 67-162/88-224 g LV Mass Index: 102.71 43-95/49-115 g/m2 LVOT Diam: 2.00 3.0+(-)1.3 cm 2D Systolic Function EF 4C: 53.30 >55% EF 2C: 55.80 >55% EF BiP: 53.20 >55% Mitral Valve MV Pk E: 0.80 MV PK A: 0.59 MV Decel Time: 265.00 E/A: 1.40 E'Lateral: 15.10 E'Medial: 9.14 E/E' Med: 8.70 E/E' Lat: 5.30 PHT: 78.00 MVA PHT: 2.82 Decel Mcleod: 3.01 Aortic Valve AoV Pk Qamar: 1.81 AoV Pk Grad: 13.00 LVOT LVOT Pk Qamar: 1.03 LVOT Mn Qamar: 0.69 LVOT VTI: 0.22 LVOT Pk Grad: 4.00 LVOT Mn Grad: 2.00 LVOT Diam: 2.00 LVOT Area: 3.14 Diastolic Function MV Pk E: 0.80 MV Pk A: 0.59 E/A: 1.40 E'Medial: 9.14 E/E' Med: 8.70 E' Laterial: 15.10 E/E' Lat: 5.30 Right Ventricle TVS' Qamar: 14.00 Tricuspid Valve TR Pk Qamar: 1.94 TR Pk Grad: 15.00 RA Press: 3.00 RVSP: 18.00 Great Vessels Aorta Ao Root-2D: 3.00 2.0-3.7 cm Ao Asc: 2.60 2.1-3.4 cm Pulmonary Valve PV Pk Qamar: 1.32 Peak PV Grad: 7.00 Updated in Other Vendor System with Status of Final Keo Luna MD electronically signed on 05/22/2024 7:06:17 PM with status of Final
--- OUTSIDE RECORDS SUMMARY | 2024-05-21 17:13 | XMS_ITS | Clinical Summary ---
Author Organization [facility] Address [address] [place] [address] Care Team Providers Care Anesthesiology Medical Doctor Name Role Phone Non-Sechc, Provider Primary Care Provider [phone] Source Comments PLEASE NOTE, if this patient [...] file Insurance [employer] Care Teams Anesthesiology Medical Doctor Relationship Specialty Start Date End Date Non-Sechc, Provider [address] [place] [address] PCP - General Literacy Consultant 01/18/19
== END ==
LOC: HO.CARD 15:04
PROVIDERS: PCP Nurse Practitioner Family; Visit Provider Nurse Practitioner Family
DX: R01.1 Cardiac murmur, unspecified (principal)
CPT/HCPCS: 93306

== ENCOUNTER → 2024-05-21 15:07 | Outpatient (BNV) | payer OTHER, SELFPAY | PROVIDERS: PCP Nurse Practitioner Family; Visit Provider Internal Medicine Cardiovascular Disease | DX: R01.1 Cardiac murmur, unspecified (principal) | CPT/HCPCS: 93306 ==

== ENCOUNTER 2024-06-04 08:15 | Outpatient (AMB) | payer OTHER, SELFPAY ==
--- OUTSIDE RECORDS SUMMARY | 2024-06-04 08:22 | XMS_ITS | Clinical Summary ---
Author Organization [facility] Address [address] [place] [address] Care Team Providers Care Head Housekeeper Name Role Phone Non-Sechc, Provider Primary Care Provider [phone] Source Comments PLEASE NOTE, if this patient [...] file Insurance [employer] Care Teams Head Housekeeper Relationship Specialty Start Date End Date Non-Sechc, Provider [address] [place] [address] PCP - General Spanish Linguist 01/18/19
--- NOTE | 2024-06-04 10:55 | MHC.OFFVISWM ---
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: Details: Start time: 10.49am, End time: 11.19am ?I spent 25 minutes speaking with the patient on the phone plus an additional 5 minutes reviewing and updating records for a total of 30 minutes HPI Comments Details: Previous weight loss efforts: exercise videos, OTC diet pills Wakes up: 5am, Sleeps: 10pm Breakfast: 5.30am (eggs or sandwich) Lunch: 12pm (rice) Dinner: 5pm-7pm (rice, chicken, pasta) Snacks: 9am (crackers), 3-4pm (nuts or fruits), 8pm (ice cream) Exercise: has home treadmill Coffee: 8oz x2 (milk and sugar), tea: none, soda: 1/week (regular Coke), juice: 2-3/wk (apple juice), ETOH: 1-2/month [facility] Medical History (Updated 05/10/24 @ 12:52 by Blanca Raymond NP) Right knee pain Chronic headaches Morbid obesity No pertinent past medical history Surgical History Hx of tubal ligation H/O: Family History Mother HTN (hypertension) Diabetes Father No problems noted. Daughter No problems noted. Daughter No problems noted. 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 Current occupational exposures/hazards: No Sexual orientation: Straight/Heterosexual Gender identity: Female Cognitive needs: No Hearing needs: No Vision needs: No Female Reproductive History Menstrual Age of Menarche: 9 Telehealth Telehealth Telehealth Platform: Telephone Location of provider rendering services: practice address Location of patient: address on file Patient Identification confirmed using: Name, : Yes Telehealth method: voice only Patient verbally consented to treatment: Yes Patient verbally consented to billing insurance company: Yes Patient informed of any privacy concerns related to visit: Yes Minutes spent on Phone/Video with Pt.: 30 Assessment & Plan Assessment & Plan (1) Morbid obesity: Code(s): E66.01 - Morbid (severe) obesity due to excess calories Category: Medical Plan: 1.? Plan for lap sleeve gastrectomy. If diaphragmatic or ventral hernias are present at time of surgery, these will be repaired laparoscopically as well. Risks and complications were discussed in detail including possible conversion to an open procedure, anastomotic leak, bleeding requiring transfusion, small bowel obstruction, , DVT and pulmonary embolism, cardiac, or pulmonary complications, as intermediate complications such as anastomotic ulcer, insufficient weight loss and vitamin deficiencies. I emphasized the importance of close follow-up, adherence to instructions and good communication. 2. Nutritional counseling. Start with 2 CELEBRATE REBUILD protein (buy at hospital's [employer] [facility]) shakes (ONE scoop EACH in 8oz low fat unsweetened almond milk each) at 6am-8am and 9am-11am, 2 protein bars (CELEBRATE protein bars, buy at [facility] [employer]) one at 12pm-2pm and 3pm-5pm, dinner at 6pm (10 forks of protein and 10 forks of salad or vegetables) AND one more protein bar after dinner at 8pm-10pm. So you do 2 protein shakes, 2.5 protein bars and one meal per day. Meal to include lean meat (beef, fish, pork, turkey, chicken), or romanian yogurt, or egg whites, or beans with a salad with olive oil and fruits (berries, pears, apples, kiwi). Avoid salt, breads, potatoes, rice, pasta, desserts. 3. Each shake would be drunk slowly, like coffee in a period of 2 hours. 4. Cut each bar in 4 pieces and eat each piece in 30min ?to make each bar last 2 hours. 5. I emphasized the importance of measuring accurately the food portion and measure it when serving the food in plate 6. The meal portions include 10 full-size forks of meat and 10 full-size forks of salad. You always eat the meat portion but you can replace up to 5 forks for salad/vegetables with rice, potatoes or pasta, or a fruit ?if you like. The less you do it the better weight loss will be. 7. One full-size fork is what it can be scooped on the fork without falling aside and not what can be bit with the fork. Use regular forks like those you find in a typical restaurant. 8.? Please send me weight measurements as soon as possible and then once a week. Always include your diet and exercise plan. 9. Start treadmill with an incline of 2.0 and speed of 3.0. Increase incline by 1 every 3 min to a max incline of 8.0, stay 3min at 8.0 and then return to 2.0 and repeat same steps until calorie goal is met. Goal is to burn 2000 calories per week on exercise, which means either 300 calories daily. 10.?It is important of avoiding and for at least 18 months postoperatively and has been discussed at the infosession. 11. Goal is to lose at least 1.5-2lbs per week 12. Goal to lose 10% of your weight before surgery, which is about 26lbs. Ultimate weight goal: 237lbs before surgery 13. Please follow the diet plan exactly without any change. If you don't like something about the plan or you feel hungry you need to communicate with me so I can help you revise the plan. You should not change the plan yourself. Orders: Orders Insulin Today E66.01 - Morbid (severe) obesity due to excess calories, E78.1 - Pure hyperglyceridemia, I10 - Essential (primary) hypertension, R73.03 - Prediabetes H Pylori Breath Test Today E66.01 - Morbid (severe) obesity due to excess calories, E78.1 - Pure hyperglyceridemia, I10 - Essential (primary) hypertension, R73.03 - Prediabetes Complete Blood Count Auto Diff Today E66.01 - Morbid (severe) obesity due to excess calories, E78.1 - Pure hyperglyceridemia, I10 - Essential (primary) hypertension, R73.03 - Prediabetes Vitamin B12 and Folate Today E66.01 - Morbid (severe) obesity due to excess calories, E78.1 - Pure hyperglyceridemia, I10 - Essential (primary) hypertension, R73.03 - Prediabetes Zinc Today E66.01 - Morbid (severe) obesity due to excess calories, E78.1 - Pure hyperglyceridemia, I10 - Essential (primary) hypertension, R73.03 - Prediabetes C Reactive Protein Today E66.01 - Morbid (severe) obesity due to excess calories, E78.1 - Pure hyperglyceridemia, I10 - Essential (primary) hypertension, R73.03 - Prediabetes Vitamin B1 Today E66.01 - Morbid (severe) obesity due to excess calories, E78.1 - Pure hyperglyceridemia, I10 - Essential (primary) hypertension, R73.03 - Prediabetes Vitamin A Today E66.01 - Morbid (severe) obesity due to excess calories, E78.1 - Pure hyperglyceridemia, I10 - Essential (primary) hypertension, R73.03 - Prediabetes Hemoglobin A1c Today E66.01 - Morbid (severe) obesity due to excess calories, E78.1 - Pure hyperglyceridemia, I10 - Essential (primary) hypertension, R73.03 - Prediabetes Lipid Panel Today E66.01 - Morbid (severe) obesity due to excess calories, E78.1 - Pure hyperglyceridemia, I10 - Essential (primary) hypertension, R73.03 - Prediabetes IRON PROFILE Today E66.01 - Morbid (severe) obesity due to excess calories, E78.1 - Pure hyperglyceridemia, I10 - Essential (primary) hypertension, R73.03 - Prediabetes Comprehensive Met. Panel Today E66.01 - Morbid (severe) obesity due to excess calories, E78.1 - Pure hyperglyceridemia, I10 - Essential (primary) hypertension, R73.03 - Prediabetes TSH reflex Free T4 Today E66.01 - Morbid (severe) obesity due to excess calories, E78.1 - Pure hyperglyceridemia, I10 - Essential (primary) hypertension, R73.03 - Prediabetes Ferritin Today E66.01 - Morbid (severe) obesity due to excess calories, E78.1 - Pure hyperglyceridemia, I10 - Essential (primary) hypertension, R73.03 - Prediabetes Vitamin D 25-OH Total Today E66.01 - Morbid (severe) obesity due to excess calories, E78.1 - Pure hyperglyceridemia, I10 - Essential (primary) hypertension, R73.03 - Prediabetes XR chest 2V Today E66.01 - Morbid (severe) obesity due to excess calories, E78.1 - Pure hyperglyceridemia, I10 - Essential (primary) hypertension, R73.03 - Prediabetes ECG 12 lead EKG Today E66.01 - Morbid (severe) obesity due to excess calories, E78.1 - Pure hyperglyceridemia, I10 - Essential (primary) hypertension, R73.03 - Prediabetes Referrals Behavioral Health Referral E66.01 - Morbid (severe) obesity due to excess calories, E78.1 - Pure hyperglyceridemia, I10 - Essential (primary) hypertension, R73.03 - Prediabetes Nutrition/Dietitian Referral E66.01 - Morbid (severe) obesity due to excess calories, E78.1 - Pure hyperglyceridemia, I10 - Essential (primary) hypertension, R73.03 - Prediabetes
[2024-06-04 11:13] VITALS: BMI 43.8
== END 2024-06-04 11:19 | disposition home or self-care (01) ==
LOC: HO.HBS 08:15
PROVIDERS: PCP Nurse Practitioner Family; Visit Provider Surgery
DX: E66.813 Obesity, class 3 (principal); Z68.41 Body mass index [BMI] 40.0-44.9, adult
CPT/HCPCS: 99214

== ENCOUNTER → 2024-06-04 08:15 | Outpatient (BNVA) | payer OTHER, SELFPAY | PROVIDERS: PCP Nurse Practitioner Family; Visit Provider Surgery | DX: I10 Essential (primary) hypertension (principal); E66.01 Morbid (severe) obesity due to excess calories; E78.1 Pure hyperglyceridemia; R73.03 Prediabetes; Z68.41 Body mass index [BMI] 40.0-44.9, adult | CPT/HCPCS: 99212 ==

== ENCOUNTER 2024-06-04 15:01 | Outpatient (AMB) | payer OTHER, SELFPAY ==
--- NOTE | 2024-06-04 15:11 | MHC.PC.OV ---
Vital Signs 06/04/24 15:16 06/04/24 15:53 Height 5 ft 5 in Weight 267 lb BMI 44.4 BP 138/66 130/88 Blood Pressure Location Rt brachial Rt brachial Position Sitting Sitting Respiration 16 Pulse 80 Pulse Source Pulse Oximeter Temp 97.9 F Temp Source Temporal Artery Scan Pulse Oximetry (%) 100 Oxygen Delivery Method Room Air Intake Visit Reasons: 1 mos HTN Intake Note: patient here for follow up on HTN Targeteer Required: No Is last menstrual period known: Yes Last menstrual period: 05/23/24 Post menopausal: No Patient : No Allergies No Known Allergies Allergy (Verified 06/04/24 15:49) Medication List - Last Reconciled 06/04/24 by Geraldine Jasso CNP cyclobenzaprine 5 mg PO BEDTIME ibuprofen 800 mg PO Q8H lisinopril 20 mg PO DAILY 30 days Tobacco use date assessed: 06/04/24 Dental Screening Dental Screen Date: 06/04/24 Did you have a dental visit in the last 12 months?: No Did you have a dental problem in the last 6 months where you did not have access to dental care?: No Was dental information given to patient?: Patient has dentist HPI HPI Comments History of Present Illness Details 39-year-old female presents for hypertension follow-up. She admits to taking lisinopril as prescribed without adverse reactions. She has not experienced headaches since the last time reported during her last visit. She offers no complaints and denies acute symptoms at this time. EKG on 05/21/2024 for heart murmur revealed the following: Conclusions: - Normal left ventricular size and systolic function. There is mildly increased left ventricular wall thickness. The visually estimated ejection fraction is between 55-60%. There is no evidence of regional wall motion abnormalities. Diastolic function is normal for age. - Normal right ventricular cavity size and systolic function. [facility] Medical History (Updated 05/10/24 @ 12:52 by Blanca Raymond NP) Right knee pain Chronic headaches Morbid obesity No pertinent past medical history Surgical History Hx of tubal ligation H/O: Family History Mother HTN (hypertension) Diabetes Father No problems noted. Daughter No problems noted. Daughter No problems noted. 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: No Sexual orientation: Straight/Heterosexual Gender identity: Female Cognitive needs: No Hearing needs: No Vision needs: No Female Reproductive History Menstrual Age of Menarche: 9 Date of last menstrual period: 05/23/24 Questionnaire Thrive Questionnaire Date Thrive assessed: 04/30/24 I am a: Patient What is your living situation today?: I have a steady place to live Within the past 12 months, did the food you bought not last and you didn't have the money to get more?: Often true Within the past 12 months, did you worry whether your food would run out before you got money to buy more?: Often true Do you have trouble paying for medicines?: No Do you have trouble getting transportation to medical appointments?: No Do you have trouble paying your heating and electricity bill?: No Do you have trouble taking care of your child, family member or friend?: No Do you have trouble with day-to-day activities such as bathing, preparing meals, shopping, managing finances, etc.?: No Are you currently unemployed and looking for a job?: No Are you interested in more education?: No Please select the resources that you would like help with: None Currently or been in a relationship where the following occur: No concerns reported THRIVE Score: 2 ELINOR-7 AMB Questionnaire ELINOR-7 Date ELINOR - 7 assessed: 09/26/23 Source: Developed by Drs. Miguel Vasquez, Yoon Fink, Osmin Bolton and colleagues, with an educational jovanny from [employer]. Review of Systems Const Details: Const Denies chills, Denies fatigue, Denies fever(s), Denies headache(s) and Denies weakness ENT Denies dizziness and Denies headache(s) Card Denies chest pain, Denies lightheadedness, Denies dyspnea and Denies other (Palpitations) Resp Denies cough, Denies dyspnea, Denies wheezing and Denies other ( shortness of breath) GI Denies abdominal pain, Denies melena, Denies hematochezia, Denies change in bowel habits, Denies dyspepsia and Denies nausea Denies hematuria and Denies dysuria Musc Denies abnormal gait, Denies myalgias, Denies arthralgias, Denies numbness and Denies tingling Skin/Breast Denies rash, Denies unusual bruising and Denies wounds Neuro Denies abnormal gait, Denies dizziness, Denies headache(s), Denies memory loss, Denies numbness, Denies Sensory deficit (Neuro), Denies tingling and Denies weakness Psych Denies anxiety, Denies depression, Denies memory loss Endo Denies cold intolerance, Denies fatigue, Denies heat intolerance, Denies polydipsia and Denies polyuria Aller/Immun Denies wheezing Physical exam (Primary Care) Vital Signs: Last Vital Signs Temp 97.9 F 06/04/24 15:16 Pulse 80 06/04/24 15:16 Resp 16 06/04/24 15:16 BP 138/66 06/04/24 15:16 Pulse Ox 100 06/04/24 15:16 Oxygen Delivery Method Room Air 06/04/24 15:16 BMI result Body Mass Index 44.4 Tobacco/Smoking Status: Tobacco use Status Tobacco use date assessed 06/04/24 06/04/24 15:19 Patient Tobacco Use Status Never used Tobacco 06/04/24 15:13 e-Cigarette/Vaping Use Never Used 06/04/24 15:13 Thrive Assessment: Date of Thrive Assessment Date Thrive assessed 04/30/24 06/04/24 15:13 Currently or been in a relationship where the following occur: No concerns reported Const Other: General: no acute distress and well developed Nutritional Appearance: well nourished Orientation/consciousness: patient oriented x3 HENMT Head: Yes normocephalic and Yes atraumatic Eyes General: appearance normal, both eyes and all related structures Pupils: Equal, round and reactive pupils present EOM: EOMs intact bilaterally Resp Effort & Inspection: normal respiratory effort Auscultation: clear to auscultation bilaterally Cardio Rate: regular rate Rhythm: regular rhythm Heart sounds: S1 normal heart sound present, S2 normal heart sound present, no gallops, +murmurs and no rubs GI Palpation (GI): No Abdominal aortic bruit present, Soft to palpation, nontender, No hepatosplenomegaly present and No Rebound tenderness present Auscultation: normal bowel sounds General: Yes no CVA tenderness Back/Spine/Pelvis Back: no CVA tenderness Cervical Spine: cervical ROM normal and No Cervical spine tenderness Thoracic/Lumbar Spine: thoraco-lumbar ROM normal, No pain with thoraco-lumbar ROM, No thoracic spinal tenderness and No lumbar spinal tenderness Extrem General: Yes normal to inspection, No edema and No calf tenderness Skin General: warm and dry. Normal skin color. Normal skin turgor Neuro General: patient oriented x3, gait normal and no focal neuro deficit Cranial nerves: Yes Equal, round and reactive pupils present Cognition (Neuro): normal cognition Gait exam (Neuro): Normal gait present Sensory Exam: No Sensory deficit (Neuro) Psych Appearance: grossly normal Affect: normal affect Attitude: cooperative Thought process: Normal thought process present Coding Level of Care Code Est Pt Level 3 (58058) Diagnoses Hypertension I10 Assessment & Plan Assessment & Plan (1) Hypertension: Code(s): I10 - Essential (primary) hypertension Category: Medical Plan: Resting blood pressure is 130/88, within goal of less than 140/90. Continue current treatment regimen. Low-sodium diet encouraged. Recent echocardiogram benign findings reviewed with the patient. Follow-up in 2 months or sooner with symptoms or concerns. Verbalized understanding and agreed with treatment plan.
[2024-06-04 15:16] VITALS: BP 138/66; PULSE 80; RESP 16; TEMP 36.6; O2SAT 100; BMI 44.4
[2024-06-04 15:53] VITALS: BP 130/88
--- OUTSIDE RECORDS SUMMARY | 2024-06-04 16:22 | XMS_ITS | Clinical Summary ---
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
== END 2024-06-04 15:57 | disposition home or self-care (01) ==
LOC: HO.HMCFM 15:02
PROVIDERS: PCP Nurse Practitioner Family; Visit Provider Nurse Practitioner Family
DX: I10 Essential (primary) hypertension (principal)

== ENCOUNTER 2024-06-08 15:04 | Outpatient (AMB) | payer OTHER, SELFPAY ==
--- NOTE | 2024-06-08 15:07 | MHC.PC.OV ---
Vital Signs 06/08/24 15:14 06/08/24 15:32 Height 5 ft 5 in Weight 266 lb 8 oz BMI 44.3 BP 148/70 H 130/70 Blood Pressure Location Rt brachial Lt brachial Position Sitting Sitting Respiration 16 Pulse 82 Pulse Source Pulse Oximeter Temp 98.2 F Temp Source Oral Pulse Oximetry (%) 100 Oxygen Delivery Method Room Air Intake Visit Reasons: Knee pain Intake Note: patient here c/o knee pain on both legs. she reports she did not take her BP medication today. 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: No Is last menstrual period known: Yes Last menstrual period: 05/24/24 Post menopausal: No Patient : No Allergies No Known Allergies Allergy (Verified 06/08/24 15:20) Medication List - Last Reconciled 06/08/24 by Geraldine Jasso CNP cyclobenzaprine 5 mg PO BEDTIME ibuprofen 800 mg PO Q8H lisinopril 20 mg PO DAILY 30 days Tobacco use date assessed: 06/08/24 Dental Screening Dental Screen Date: 06/08/24 Did you have a dental visit in the last 12 months?: No Did you have a dental problem in the last 6 months where you did not have access to dental care?: No Was dental information given to patient?: Patient has dentist HPI HPI Comments History of Present Illness Details 39-year-old female presents with complaints of bilateral knee pain. She notes significant pain with walking and climbing up stairs. The pain is is persistent and has progressively worsened. The pain feels like the bones are rubbing on each other. She notes history of bilateral knee pain for several years. However, she has never had a xray. Her current symptoms have been ongoing for over a week. She denies fall, injury, or trauma. She was evaluated at [facility] walk[facility]in on 05/10/2024 for bilateral knee pain, right greater than left. She was prescribed ibuprofen, cyclobenzaprine, knee brace, and referred [place] [facility] [place]. Ibuprofen, Cyclobenzaprine, and cool compresses have not provided relief. She has not been using knee braces as they rolled [id number] while walking. She has not been contacted by [facility] [place]. COUNT [facility]CLUD[facility] Medical History (Updated 06/08/24 @ 15:39 by Geraldine Jasso CNP) Right knee pain Chronic headaches Morbid obesity No pertinent past medical history Surgical History Hx of tubal ligation H/O: Family History Mother HTN (hypertension) Diabetes Father No problems noted. Daughter No problems noted. Daughter No problems noted. 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 Current occupational exposures/hazards: No Sexual orientation: Straight/Heterosexual Gender identity: Female Cognitive needs: No Hearing needs: No Vision needs: No Female Reproductive History Menstrual Age of Menarche: 9 Date of last menstrual period: 05/24/24 Questionnaire Thrive Questionnaire Date Thrive assessed: 04/30/24 I am a: Patient What is your living situation today?: I have a steady place to live Within the past 12 months, did the food you bought not last and you didn't have the money to get more?: Often true Within the past 12 months, did you worry whether your food would run out before you got money to buy more?: Often true Do you have trouble paying for medicines?: No Do you have trouble getting transportation to medical appointments?: No Do you have trouble paying your heating and electricity bill?: No Do you have trouble taking care of your child, family member or friend?: No Do you have trouble with day-to-day activities such as bathing, preparing meals, shopping, managing finances, etc.?: No Are you currently unemployed and looking for a job?: No Are you interested in more education?: No Please select the resources that you would like help with: None Currently or been in a relationship where the following occur: No concerns reported THRIVE Score: 2 ELINOR-7 AMB Questionnaire ELINOR-7 Date ELINOR - 7 assessed: 07/05/24 Source: Developed by Drs. Miguel Vasquez, Yoon Fink, Osmin Bolton and colleagues, with an educational jovanny from [employer]. Review of Systems Const Details: Const Denies chills, Denies fatigue, Denies fever(s), Denies headache(s) and Denies weakness ENT Denies dizziness and Denies headache(s) Card Denies chest pain, Denies lightheadedness, Denies dyspnea and Denies other (Palpitations) Resp Denies cough, Denies dyspnea, Denies wheezing and Denies other ( shortness of breath) GI Denies abdominal pain, Denies melena, Denies hematochezia, Denies change in bowel habits, Denies dyspepsia and Denies nausea Denies hematuria and Denies dysuria Musc Denies abnormal gait, Denies myalgias, Denies arthralgias, Denies numbness and Denies tingling Skin/Breast Denies rash, Denies unusual bruising and Denies wounds Neuro Denies abnormal gait, Denies dizziness, Denies headache(s), Denies memory loss, Denies numbness, Denies Sensory deficit (Neuro), Denies tingling and Denies weakness Psych Denies anxiety, Denies depression, Denies memory loss Endo Denies cold intolerance, Denies fatigue, Denies heat intolerance, Denies polydipsia and Denies polyuria Aller/Immun Denies wheezing Physical exam (Primary Care) Tobacco/Smoking Status: Tobacco use Status Tobacco use date assessed 06/04/24 06/08/24 15:10 Patient Tobacco Use Status Never used Tobacco 06/08/24 15:10 e-Cigarette/Vaping Use Never Used 06/08/24 15:10 Thrive Assessment: Date of Thrive Assessment Date Thrive assessed 04/30/24 06/08/24 15:10 Currently or been in a relationship where the following occur: No concerns reported Const Other: General: no acute distress and well developed Nutritional Appearance: well nourished Orientation/consciousness: patient oriented x3 HENMT Head: Yes normocephalic and Yes atraumatic Eyes General: appearance normal, both eyes and all related structures Pupils: Equal, round and reactive pupils present EOM: EOMs intact bilaterally Resp Effort & Inspection: normal respiratory effort Auscultation: clear to auscultation bilaterally Cardio Rate: regular rate Rhythm: regular rhythm Heart sounds: S1 normal heart sound present, S2 normal heart sound present, no gallops, no murmurs and no rubs GI Palpation (GI): No Abdominal aortic bruit present, Soft to palpation, nontender, No hepatosplenomegaly present and No Rebound tenderness present Auscultation: normal bowel sounds General: Yes no CVA tenderness Back/Spine/Pelvis Back: no CVA tenderness Cervical Spine: cervical ROM normal and No Cervical spine tenderness Thoracic/Lumbar Spine: thoraco-lumbar ROM normal, No pain with thoraco-lumbar ROM, No thoracic spinal tenderness and No lumbar spinal tenderness Extrem General: Yes normal to inspection, No edema and No calf tenderness. Right knee tenderness laterally, no tenderness to patellar region. Left knee without tenderness. No swelling or overt injury/trauma Skin General: warm and dry. Normal skin color. Normal skin turgor Neuro General: patient oriented x3, gait normal and no focal neuro deficit Cranial nerves: Yes Equal, round and reactive pupils present Cognition (Neuro): normal cognition Gait exam (Neuro): Normal gait present Sensory Exam: No Sensory deficit (Neuro) Psych Appearance: grossly normal Affect: normal affect Attitude: cooperative Thought process: Normal thought process present Coding Level of Care Code Est Pt Level 3 (10466) Diagnoses Bilateral knee pain M25.561; M25.562 Assessment & Plan Assessment & Plan (1) Bilateral knee pain: Code(s): M25.561 - Pain in right knee; M25.562 - Pain in left knee Category: Medical Plan: Patient presents with acute on chronic bilateral knee pain which feels [id number]. Refractory to ibuprofen, cyclobenzaprine, and cool compresses. Right knee tenderness laterally, no tenderness to patellar region. Left knee without tenderness. No swelling or overt injury/trauma. Continue current treatment regimen. X-ray ordered. Will review results and make changes as needed. Healthy diet and routine exercise encouraged for weight management and alleviate weight on her knees. She has currently followed [place] [facility] [place] and is considering bariatric surgery. Return with worsening or new symptoms. Verbalized understanding and agreed with treatment plan. Orders: Orders XR knee LT 2V Today M25.561 - Pain in right knee, M25.562 - Pain in left knee XR knee RT 2V Today M25.561 - Pain in right knee, M25.562 - Pain in left knee
[2024-06-08 15:14] VITALS: BP 148/70; PULSE 82; RESP 16; TEMP 36.8; O2SAT 100; BMI 44.3
[2024-06-08 15:32] VITALS: BP 130/70
--- OUTSIDE RECORDS SUMMARY | 2024-06-08 18:00 | XMS_ITS | Clinical Summary ---
Author Organization [facility] Address [address] [place] [address] Care Team Providers Care Disc Pad Plate Filler Name Role Phone Non-Sechc, Provider Primary Care Provider [phone] Source Comments PLEASE NOTE, if this patient [...] file Insurance [employer] Care Teams Disc Pad Plate Filler Relationship Specialty Start Date End Date Non-Sechc, Provider [address] [place] [id number] PCP - General Finishing Range Feeder 01/18/19
== END 2024-06-08 15:38 | disposition home or self-care (01) ==
LOC: HO.HMCFM 15:05
PROVIDERS: PCP Nurse Practitioner Family; Visit Provider Nurse Practitioner Family
DX: M25.561 Pain in right knee (principal); M25.562 Pain in left knee

== ENCOUNTER → 2024-06-08 15:04 | Outpatient (BNVA) | payer OTHER, SELFPAY | PROVIDERS: PCP Nurse Practitioner Family; Visit Provider Nurse Practitioner Family | DX: M25.561 Pain in right knee (principal); M25.562 Pain in left knee | CPT/HCPCS: 99212 ==

== ENCOUNTER 2024-06-13 12:39 | Emergency (ER) | payer OTHER, SELFPAY ==
[2024-06-13] VITALS (7 sets, daily range): BP systolic 122–179; BP diastolic 57–89; PULSE 78–84; RESP 16–18; TEMP 36.6–37.3; O2SAT 97–99; BMI 43.9
--- NOTE | ~2024-06-13 | XR_ITS ---
CLINICAL HISTORY: chest tightness Chest Radiographs, 2 views Comparison: 12/31/22 Findings: No cardiomegaly. Normal mediastinal contours. No pneumothorax. No opacity. No pleural effusion. Normal upper abdomen. No acute fracture. Impression: No acute findings. This document has been electronically signed by: Kenna Segundo MD on 06/13/2024 13:54:00
--- NOTE | 2024-06-13 12:41 | ED.GENADULT ---
HPI - General Adult General Chief complaint: Arrhythmia/Palpitations Stated complaint: palpitations Time Seen by Provider: 06/13/24 14:44 Source: patient, RN notes reviewed and old records reviewed Mode of arrival: ambulatory Limitations: no limitations History of Present Illness ED Provider: [facility] narrative: Patient is a 39-year-old female with history of HTN, hirsutism, morbid obesity, chronic headaches, iron deficiency anemia, hypertriglyceridemia, sleep apnea presenting to the emergency department with a complaint of palpitations. States she was sitting on the couch watching TV at the time. Reports 1 episode yesterday morning which lasted around 30 minutes. Reports she had an additional episode today which lasted longer than yesterday, but she is able to quantify how long. Denies associated shortness of breath, dizziness, lightheadedness. Denies chest pain. States chest felt tight during episodes. Denies recent travel, is not on OCPs, no personal or family history of blood clots, no recent calf pain or swelling. No new medications, or medication changes. States that she recently had an echo as PCP suspected a murmur, and this was normal. MD complaint: palpitations Onset (ago): day(s) Location: chest Related Data Previous Rx's ?Medication ?Instructions ?Recorded lisinopril 20 mg tablet 20 mg PO DAILY 30 days #30 tabs 04/30/24 cyclobenzaprine 5 mg tablet 5 mg PO BEDTIME #10 tabs 05/10/24 ibuprofen 800 mg tablet 800 mg PO Q8H #20 tabs 05/10/24 Allergies Allergy/AdvReac Type Severity Reaction Status Date / Time No Known Allergies Allergy Verified 06/13/24 12:43 Review of Systems Review of Systems: As per HPI Yes all other systems are reviewed and are negative Constitutional: Constitutional: Reports as per HPI [facility] Past Medical History Medical History (Updated 06/13/24 @ 17:29 by Christy Ray NP) Right knee pain Chronic headaches Morbid obesity No pertinent past medical history Surgical History Hx of tubal ligation H/O: Family History Family History Mother HTN (hypertension) Diabetes Father No problems noted. Daughter No problems noted. Daughter No problems noted. 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: No Sexual orientation: Straight/Heterosexual Gender identity: Female Cognitive needs: No Hearing needs: No Vision needs: No Physical Exam ED Vital Signs: Vital Signs - 24 hr 06/13/24 12:40 06/13/24 15:19 06/13/24 15:21 Temperature 98 F Pulse Rate 84 81 80 Respiratory Rate 18 Blood Pressure 179/83 H 122/57 L 140/83 H Pulse Oximetry 98 Oxygen Delivery Method Room Air 06/13/24 15:22 06/13/24 15:24 Temperature 99.2 F Pulse Rate 81 80 Respiratory Rate 16 Blood Pressure 147/89 H 132/65 Pulse Oximetry 99 Oxygen Delivery Method Room Air BMI result Body Mass Index 43.9 Vital signs have been reviewed and appear to be correct. Blood pressure elevated. Heart rate normal. Respiratory rate normal. Temperature normal. Oxygen saturation normal. Const General: cooperative and no acute distress Orientation/consciousness: oriented to person, oriented to place, oriented to time and patient oriented x3 Limitations: no limitations [facility] Head: Yes normocephalic and Yes atraumatic Ears: external ears normal General nose exam: Normal external nose present Face and sinus: Yes face symmetric Mouth: oropharynx normal and moist mucous membranes Throat: Yes uvula midline Eyes Pupils: Equal, round and reactive pupils present Neck Neck: Yes normal visual inspection and Yes supple Resp Effort & Inspection: normal respiratory effort and able to speak in complete sentences Auscultation: clear to auscultation bilaterally Cardio Rate: regular rate Rhythm: regular rhythm Heart sounds: S1 normal heart sound present and S2 normal heart sound present GI Palpation (GI): Soft to palpation and nontender Auscultation: normoactive bowel sounds General: Yes no CVA tenderness Back/Spine/Pelvis Back: no CVA tenderness Skin General skin exam: elasticity normal and turgor normal Neuro General: oriented to person, oriented to place, oriented to time, patient oriented x3, moves all extremities, no focal motor deficits and CN's II-XI intact bilaterally Cranial nerves: Yes Equal, round and reactive pupils present Cognition (Neuro): normal cognition Extrem General: Yes full ROM, Yes no pedal edema and Yes no calf tenderness Psych Mental Status: mental status grossly normal Affect: normal affect Thought process: Normal thought process present Course Course Course Narrative: This is a Rapid Medical Examination (RME) performed by Loretta Blackmon PA-C in triage. Full HPI, ROS, assessment and treatment plan per primary provider in the Main ED. Hx: 39 yo female hx of HTN, morbid obesity, migraines, iron deficiency anemia here for eval of palpitations intermittent since yesterday, becoming more constant today. palpitations began while at rest. she states her watch noted a HR of 110. assoc headache and chest tightness, no pain. no sob. no increased life stressors/ anxiety. no recent travel. PE/vitals: hypertensive - took her lisinopril this morning. well appearing, in NAD. rrr. lungs clear. Plan: labs, ekg, cxr Medications Administered Discontinued Medications Generic Name Dose Route Start Last Admin Trade Name Willardq PRN Reason Stop Dose Admin Acetaminophen 975 mg 06/13/24 15:33 06/13/24 15:55 Acetaminophen 325 Mg Tablet PO 06/13/24 15:34 975 mg ONCE ONE Administration Ibuprofen 600 mg 06/13/24 15:33 06/13/24 15:55 Ibuprofen 600 Mg Tablet PO 06/13/24 15:34 600 mg ONCE ONE Administration Medical Decision Making Medical Decision Making [facility] Narrative: Patient is a 39-year-old female with history of HTN, hirsutism, morbid obesity, chronic headaches, iron deficiency anemia, hypertriglyceridemia, sleep apnea presenting to the emergency department with a complaint of palpitations. On exam patient is awake, A+Ox3, hypertensive, VS otherwise WNL, afebrile, normal neurological exam without focal deficits, physical exam findings as above. Given reported symptoms and physical exam findings, initial differential includes but is not limited to cardiac arrhythmia, electrolyte abnormality, anemia. Less likely ACS. PERC 0, PE unlikely. EKG shows NSR without ectopy. No orthostatic intolerance noted. Labs notable for mild anemia not at transfusable level, no significant electrolyte abnormalities, initial troponin 6.8, repeat downtrending. X-ray chest notable for no evidence of cardiomegaly, pneumothorax, pneumonia. My interpretation is in agreement with the radiologist's interpretation. Feel patient is stable for discharge home at this time. Will refer to cardiology. Return precautions discussed. Advised patient to ensure adequate fluid intake and avoid caffeine. Patient verbalized understanding of and agreement with plan. Differential Diagnosis Differential Diagnoses: The differential diagnosis associated with the presentation includes As per [facility] Admission/Observation Consideration of admission/observation: Escalation of care including admission/observation considered Patient would have been admitted to the hospital had their work up had any findings where hospital admission was appropriate and their clinical presentation warranted hospital admission. Lab Data [facility] Lab Attestation statement: I reviewed the patient's lab results. As per [facility] 06/13/24 13:04 06/13/24 13:04 Labs: Lab Results 06/13/24 06/13/24 Range/Units 13:04 16:25 WBC 8.2 (4.8-10.8) X10*3/uL RBC 4.44 (4.20-5.50) X10*6/uL Hgb 10.8 L (12.0-16.0) g/dl Hct 35.6 L (37.0-47.0) % MCV 80.2 (80.0-98.0) fL MCH 24.3 L (27.0-33.0) pg MCHC 30.3 L (31.0-35.0) g/dl RDW 15.0 (11.0-16.0) % Plt Count 255 (160-400) X10*3/uL MPV 11.1 (9.4-12.3) fL Immature Gran % (Auto) 0.2 (0.0-0.4) % Neut % (Auto) 50.3 (45-73) % Lymph % (Auto) 36.0 (20-40) % [place] % (Auto) 8.7 (2-11) % Eos % (Auto) 3.7 (0-4) % Baso % (Auto) 1.1 (0-2) % Lymph # (Auto) 3.0 (1.2-4.9) X10*3/uL [place] # (Auto) 0.7 (0.1-1.2) X10*3/uL Eos # (Auto) 0.3 (0.0-0.4) X10*3/uL Baso # (Auto) 0.1 (0.0-0.2) X10*3/uL Abs Immat Gran (auto) 0.02 (0.00-0.03) X10*3/uL Absolute Neuts (auto) 4.1 (2.0-8.3) x10*3/uL Absolute Nucleated RBC 0.000 (0.0-0.012) X10*3/uL Nucleated RBC % (auto) 0.0 (0.0-0.2) /100WBC Sodium 141 (135-145) mmol/L Potassium 4.4 (3.3-5.1) mmol/L Chloride 112 H (96-108) mmol/L Carbon Dioxide 23 (22-29) mmol/L Anion Gap 10 L (12-20) BUN 11 (9-16) mg/dL Creatinine 0.64 (0.5-1.4) mg/dL Estim Creat Clear Calc 151.4 Estimated GFR > 60 Random Glucose 93 (60-115) mg/dL Calcium 8.9 (8.4-10.2) mg/dL Magnesium 1.8 (1.6-2.6) mg/dL Total Bilirubin 0.2 (0.0-1.0) mg/dL AST 30 (5-31) U/L ALT 19 (0-31) U/L Alkaline Phosphatase 60 (39-117) U/L Troponin I High Sens 6.8 5.1 (<3.5-17.0) ng/L Total Protein 7.5 (6.5-8.0) g/dL Albumin 3.7 (3.5-5.0) g/dL Lipase 19 (8-78) U/L TSH 1.21 (0.32-4.0) uIU/mL Beta HCG, Quant < 2 mIU/mL Independent Interpretation I performed an independent interpretation of an: EKG (normal sinus rhythm, rate 75 bpm, normal TN interval and QTc, no ectopy, no significant change from prior) and Plain X-Ray Interpretation: No evidence of cardiomegaly, pneumothorax, pneumonia on chest x-ray. Radiology Impression Discussion of test interpretation with radiology: I have reviewed the radiologist's reading. Radiologist Impression: Chest Radiographs, 2 views Comparison: 12/31/22 Findings: No cardiomegaly. Normal mediastinal contours. No pneumothorax. No opacity. No pleural effusion. Normal upper abdomen. No acute fracture. Impression: No acute findings. External Record Review External record reviewed: Inpatient record, Office record and Outpatient record Discharge Plan Discharge Clinical Impression: Palpitations Patient Disposition: Home, Self-Care Instructions: Heart Palpitations (DC) Additional Instructions: You were evaluated in the emergency department today for heart palpitations. Your evaluation did not show evidence of conditions requiring emergent medical treatment at this time. We recommend that you follow-up with your primary care provider and are also referring you to cardiology for further evaluation. Be sure to get plenty of rest and drink plenty of fluids. It can be beneficial to cut back on caffeine if you can assume this frequently. Return to the emergency department if you develop chest pain, difficulty breathing or shortness of breath, palpitations that do not resolve in a short period of time, dizziness or lightheadedness, fainting, or any other new or concerning symptoms. Prescriptions: No Action cyclobenzaprine 5 mg tablet 5 mg PO BEDTIME Qty: 10 0RF ibuprofen 800 mg tablet 800 mg PO Q8H Qty: 20 0RF lisinopril 20 mg tablet 20 mg PO DAILY 30 Days Qty: 30 3RF Referrals: [facility] [Provider Group] - 1 week (palpitations) Print Language: Vincentian
--- NOTE | 2024-06-13 12:43 | ECG_ITS ---
Test Reason : palpitations Blood Pressure : */* mmHG Vent. Rate : 75 BPM Atrial Rate : 75 BPM P-R Int : 162 ms QRS Dur : 82 ms QT Int : 364 ms P-R-T Axes : 43 19 40 degrees QTcB Int : 406 ms Normal sinus rhythm Normal ECG When compared with ECG of 31-Dec-2022 09:25, No significant change was found Referred By: Nat Blackmon Electronically Signed By: NADIYA HIGHTOWER MD
--- NOTE | 2024-06-13 12:52 | MHC.EDTECH ---
unable to do EKG as pt called for xray
[2024-06-13 13:11] LABS: Basophils Absolute Auto 0.1 X10*3/uL (0.0-0.2); Basophils Percent Auto 1.1 % (0-2); Eosinophils Absolute Auto 0.3 X10*3/uL (0.0-0.4); Eosinophils Percent Auto 3.7 % (0-4); Hematocrit 35.6 % (37.0-47.0); Hemoglobin 10.8 g/dl (12.0-16.0); Imm Gran Abs Auto 0.02 X10*3/uL (0.00-0.03); Imm Gran Pct Auto 0.2 % (0.0-0.4); MANUAL DIFF FLAG NO; Mean Corpuscular HGB Conc 30.3 g/dl (31.0-35.0); Mean Corpuscular Hemoglobin 24.3 pg (27.0-33.0); Mean Corpuscular Volume 80.2 fL (80.0-98.0); Mean Platelet Volume 11.1 fL (9.4-12.3); Monocytes Absolute Auto 0.7 X10*3/uL (0.1-1.2); Monocytes Percent Auto 8.7 % (2-11); Neutrophils Absolute Auto 4.1 x10*3/uL (2.0-8.3); Neutrophils Percent Auto 50.3 % (45-73); Platelet Count 255 X10*3/uL (160-400); Red Blood Count 4.44 X10*6/uL (4.20-5.50); White Blood Count 8.2 X10*3/uL (4.8-10.8)
[2024-06-13 13:30] LABS: Alanine Aminotransferase 19 U/L (0-31); Albumin Level 3.7 g/dL (3.5-5.0); Alkaline Phosphatase 60 U/L (39-117); Anion Gap 10 (12-20); Aspartate Amino Transferase 30 U/L (5-31); Bilirubin Total 0.2 mg/dL (0.0-1.0); Blood Urea Nitrogen 11 mg/dL (9-16); Calcium 8.9 mg/dL (8.4-10.2); Carbon Dioxide 23 mmol/L (22-29); Chloride 112 mmol/L (96-108); Creatinine Clr Calc Pharmacy 151.4; Estimated Glomerular Filt Rate > 60; Glucose Random 93 mg/dL (60-115); Lipase 19 U/L (8-78); Magnesium 1.8 mg/dL (1.6-2.6); Potassium 4.4 mmol/L (3.3-5.1); Sodium 141 mmol/L (135-145); Total Protein 7.5 g/dL (6.5-8.0)
[2024-06-13 13:33] LABS: Troponin-I High Sensitivity 6.8 ng/L (<3.5-17.0)
[2024-06-13 13:53] LABS: HCG Quantitative < 2 mIU/mL; TSH reflex Free T4 1.21 uIU/mL (0.32-4.0)
[2024-06-13] MEDS: Acetaminophen 325 MG TABLET 975 MG PO (15:55)
[2024-06-13] MEDS: Ibuprofen 600 MG TABLET PO (15:55)
[2024-06-13 16:50] LABS: Troponin-I High Sensitivity 5.1 ng/L (<3.5-17.0)
== END 2024-06-13 17:47 | disposition home or self-care (01) ==
PROVIDERS: Physician Assistant Medical; Registered Nurse Emergency; Emergency Provider Emergency Medicine; PCP Nurse Practitioner Family
DX: R00.2 Palpitations (principal); I10 Essential (primary) hypertension
CPT/HCPCS: 36415; 71046; 80053; 83690; 83735; 84443; 84484; 84702; 85025; 93005; 99283; 99285

== ENCOUNTER → 2024-06-13 12:43 | Outpatient (BNV) | payer OTHER, SELFPAY | PROVIDERS: PCP Nurse Practitioner Family; Visit Provider Radiology Diagnostic Radiology | DX: R07.89 Other chest pain (principal) | CPT/HCPCS: 71046 ==

== ENCOUNTER → 2024-06-13 12:43 | Outpatient (BNV) | payer OTHER, SELFPAY | PROVIDERS: Emergency Provider Emergency Medicine; PCP Nurse Practitioner Family; Visit Provider Internal Medicine Cardiovascular Disease | DX: R00.2 Palpitations (principal) | CPT/HCPCS: 93010 ==

== ENCOUNTER 2024-08-08 09:23 | Emergency (ER) | payer OTHER, SELFPAY ==
--- NOTE | ~2024-08-08 | XR_ITS ---
CLINICAL HISTORY: cough sob 2 view chest x-ray Comparison: CR - XR CHEST 2V - 06/13/24 12:51 EDT Findings: Faint right lower lobe density. Heart size is normal. No acute fracture. IMPRESSION: Possible right lower lobe infiltrate. Follow-up recommended. This document has been electronically signed by: Donovan Jon MD on 08/08/2024 11:29:17
--- NOTE | 2024-08-08 09:24 | ECG_ITS ---
Test Reason : CHEST PAIN Blood Pressure : */* mmHG Vent. Rate : 83 BPM Atrial Rate : 83 BPM P-R Int : 154 ms QRS Dur : 78 ms QT Int : 352 ms P-R-T Axes : 41 11 36 degrees QTcB Int : 413 ms Normal sinus rhythm Cannot rule out Anterior infarct , age undetermined Abnormal ECG When compared with ECG of 13-Jun-2024 12:52, No significant change was found Referred By: Generic ED Physician Electronically Signed By: Keo Luna
[2024-08-08 09:29] VITALS: BP 143/82; PULSE 90; RESP 20; TEMP 36.2; O2SAT 96; BMI 42.2
[2024-08-08 09:56] LABS: MANUAL DIFF FLAG NO
[2024-08-08 09:58] LABS: Basophils Percent Auto 0.7 % (0-2); Eosinophils Absolute Auto 0.2 X10*3/uL (0.0-0.4); Eosinophils Percent Auto 3.5 % (0-4); Hematocrit 35.8 % (37.0-47.0); Hemoglobin 10.9 g/dl (12.0-16.0); Imm Gran Abs Auto 0.03 X10*3/uL (0.00-0.03); Imm Gran Pct Auto 0.5 % (0.0-0.4); Lymphocytes Absolute Auto 1.2 X10*3/uL (1.2-4.9); Lymphocytes Percent Auto 20.1 % (20-40); Mean Corpuscular HGB Conc 30.4 g/dl (31.0-35.0); Mean Corpuscular Hemoglobin 24.3 pg (27.0-33.0); Mean Corpuscular Volume 79.7 fL (80.0-98.0); Mean Platelet Volume 11.3 fL (9.4-12.3); Monocytes Absolute Auto 0.7 X10*3/uL (0.1-1.2); Monocytes Percent Auto 12.3 % (2-11); Neutrophils Absolute Auto 3.7 x10*3/uL (2.0-8.3); Neutrophils Percent Auto 62.9 % (45-73); Platelet Count 205 X10*3/uL (160-400); Red Blood Count 4.49 X10*6/uL (4.20-5.50); Red Cell Distribution Width 14.6 % (11.0-16.0); White Blood Count 5.9 X10*3/uL (4.8-10.8)
[2024-08-08 10:12] LABS: Anion Gap 13 (12-20); Blood Urea Nitrogen 9 mg/dL (9-16); Calcium 8.8 mg/dL (8.4-10.2); Carbon Dioxide 23 mmol/L (22-29); Chloride 108 mmol/L (96-108); Creatinine Clr Calc Pharmacy 133.4; Estimated Glomerular Filt Rate > 60; Glucose Random 84 mg/dL (60-115); Potassium 4.1 mmol/L (3.3-5.1); Sodium 140 mmol/L (135-145)
[2024-08-08 10:20] LABS: B Type Natriuretic Peptide 31 pg/mL (<100)
[2024-08-08 10:21] LABS: Troponin-I High Sensitivity 3.7 ng/L (<3.5-17.0)
[2024-08-08 10:45] LABS: Influenza A PCR NEGATIVE (Negative); Influenza B PCR NEGATIVE (Negative); Resp Syncy Virus RNA Qual PCR NEGATIVE (Negative); SARS COV2 PCR INHOUSE NEGATIVE (Negative)
--- NOTE | 2024-08-08 10:55 | ED.CHESTPAIN ---
HPI - Chest Pain General Chief Complaint: Chest Pain Stated Complaint: chest pain, and cough Time Seen by Provider: 08/08/24 10:40 Source: patient Mode of arrival: ambulatory Limitations: no limitations History of Present Illness HPI narrative: This is 39 years old female presented to the emergency department complaining of cough congestion chest pain with cough since cough is productive of yellow sputum. complaint: chest pain Onset (ago): day(s) (3) Timing of current episode: constant Onset: during rest Pain location: substernal Pain radiation: none Severity: moderate Quality: aching Relieving factors: nothing Exacerbating factors: nothing Context: recent illness Risk Factors Coronary artery disease risk factors: hypertension Related Data Previous Rx's ?Medication ?Instructions ?Recorded cyclobenzaprine 5 mg tablet 5 mg PO BEDTIME #10 tabs 05/10/24 ibuprofen 800 mg tablet 800 mg PO Q8H #20 tabs 05/10/24 lisinopril 20 mg tablet 20 mg PO DAILY 30 days #30 tabs 07/27/24 amoxicillin 500 mg tablet 500 mg PO TID #21 tabs 08/08/24 benzonatate 100 mg capsule 100 mg PO TID PRN cough #20 caps 08/08/24 Allergies Allergy/AdvReac Type Severity Reaction Status Date / Time No Known Allergies Allergy Verified 08/08/24 09:31 Review of Systems Cardiovascular: Cardiovascular: Reports chest pain Respiratory: Respiratory: Reports chest congestion, Reports cough and Reports pain with cough PMFSH Past Medical History Attestation statement: The following information was validated with the patient. Medical History Right knee pain Chronic headaches Morbid obesity No pertinent past medical history Surgical History Hx of tubal ligation H/O: Family History Family History Mother HTN (hypertension) Diabetes Father No problems noted. Daughter No problems noted. Daughter No problems noted. 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 occupational exposures/hazards: No Sexual orientation: Straight/Heterosexual Gender identity: Female Cognitive needs: No Hearing needs: No Vision needs: No Physical Exam Vital Signs: Vital Signs: Last Vital Signs Temp 97.1 F 08/08/24 09:29 Pulse 90 08/08/24 09:29 Resp 20 08/08/24 09:29 BP 143/82 H 08/08/24 09:29 Pulse Ox 96 08/08/24 09:29 O2 Del Method Room Air 08/08/24 09:29 BMI result Body Mass Index 42.2 no acute distress comfortable in the stretcher Const: General: cooperative Nutritional Appearance: well nourished Orientation/consciousness: patient oriented x3 Limitations: no limitations HEENT: Head: Yes normal to inspection Ears: hearing grossly normal bilaterally General nose exam: Normal external nose present Neck: Neck: Yes normal visual inspection and Yes full ROM Chest: Chest palpation & inspection: normal inspection of the chest Resp: Effort & Inspection: normal respiratory effort Auscultation: rhonchi Cardio: Jugular venous distension: no JVD Rate: regular rate Rhythm: regular rhythm GI: Inspection: Yes normal to inspection Palpation (GI): Soft to palpation, not firm and nontender Skin: General skin exam: no rashes or lesions noted Lesions: no lesions Rashes: no rashes Trauma: no lacerations or abrasions Wounds: no wounds Neuro: General: patient oriented x3 Course Reevaluation(s) Reevaluation #1: Workup completed in the chest x-ray showed right lower lobe pneumonia but she is oxygenating well she has no comorbidity she can be treated as outpatient with p.o. antibiotic she is comfortable with the plan of care Time: 11:58 Medical Decision Making Medical Decision Making [facility] Narrative: Patient presented to emergency department with a chief complaint of chest pain with cough we will obtain a chest x-ray labs Differential Diagnosis Differential Diagnoses: The differential diagnosis associated with the presentation includes Bronchitis/atypical chest pain/ACS Admission/Observation Consideration of admission/observation: Escalation of care including admission/observation considered Lab Data MDM Lab Attestation statement: I reviewed the patient's lab results. 08/08/24 09:41 08/08/24 09:41 Labs: Lab Results 08/08/24 08/08/24 08/08/24 Range/Units 09:40 09:41 11:24 WBC 5.9 (4.8-10.8) X10*3/uL RBC 4.49 (4.20-5.50) X10*6/uL Hgb 10.9 L (12.0-16.0) g/dl Hct 35.8 L (37.0-47.0) % MCV 79.7 L (80.0-98.0) fL MCH 24.3 L (27.0-33.0) pg MCHC 30.4 L (31.0-35.0) g/dl RDW 14.6 (11.0-16.0) % Plt Count 205 (160-400) X10*3/uL MPV 11.3 (9.4-12.3) fL Immature Gran % (Auto) 0.5 H (0.0-0.4) % Neut % (Auto) 62.9 (45-73) % Lymph % (Auto) 20.1 (20-40) % [place] % (Auto) 12.3 H (2-11) % Eos % (Auto) 3.5 (0-4) % Baso % (Auto) 0.7 (0-2) % Lymph # (Auto) 1.2 (1.2-4.9) X10*3/uL [place] # (Auto) 0.7 (0.1-1.2) X10*3/uL Eos # (Auto) 0.2 (0.0-0.4) X10*3/uL Baso # (Auto) 0.0 (0.0-0.2) X10*3/uL Abs Immat Gran (auto) 0.03 (0.00-0.03) X10*3/uL Absolute Neuts (auto) 3.7 (2.0-8.3) x10*3/uL Absolute Nucleated RBC 0.000 (0.0-0.012) X10*3/uL Nucleated RBC % (auto) 0.0 (0.0-0.2) /100WBC Sodium 140 (135-145) mmol/L Potassium 4.1 (3.3-5.1) mmol/L Chloride 108 (96-108) mmol/L Carbon Dioxide 23 (22-29) mmol/L Anion Gap 13 (12-20) BUN 9 (9-16) mg/dL Creatinine 0.71 (0.5-1.4) mg/dL Estim Creat Clear Calc 133.4 Estimated GFR > 60 Random Glucose 84 (60-115) mg/dL Calcium 8.8 (8.4-10.2) mg/dL Troponin I High Sens 3.7 3.4 (<3.5-17.0) ng/L B-Natriuretic Peptide 31 (<100) pg/mL Influenza Type A (PCR) NEGATIVE (Negative) Influenza Type B (PCR) NEGATIVE (Negative) RSV RNA Qual (PCR) NEGATIVE (Negative) SARS-CoV-2 RNA (RT-PCR) NEGATIVE (Negative) Independent Interpretation I performed an independent interpretation of an: EKG and Plain X-Ray (rt lower lobe inf) Interpretation: Normal sinus rhythm rate [address]-T changes normal EKG Radiology Impression Discussion of test interpretation with radiology: I have reviewed the radiologist's reading. Radiologist Impression: [facility] cc: Guy Siu MD; Geraldine Jasso CNP~ CLINICAL HISTORY: cough sob 2 view chest x-ray Comparison: CR - XR CHEST 2V - 06/13/24 12:51 EDT Findings: Faint right lower lobe density. Heart size is normal. No acute fracture. IMPRESSION: Possible right lower lobe infiltrate. Follow-up recommended. This document has been electronically signed by: Donovan Jon MD on 08/08/2024 11:29:17 Dictated By: Donovan Jon Independent Historian Clinical information obtained from an independent historian. History obtained from or confirmed by: Spouse Prescription Management I considered prescription management with: Antibiotic Discharge Plan Discharge Clinical Impression: Pneumonia Qualifiers: Pneumonia type: due to unspecified organism Laterality: right Lung location: lower lobe of lung Qualified Code(s): J18.9 - Pneumonia, unspecified organism Patient Disposition: Home, Self-Care Instructions: Pneumonia (ED) Additional Instructions: Follow-up with your primary care physician we sent a prescription for you to [facility] in [place] for antibiotic Prescriptions: New amoxicillin 500 mg tablet 500 mg PO TID Qty: 21 0RF benzonatate 100 mg capsule 100 mg PO TID PRN (Reason: cough) Qty: 20 0RF No Action lisinopril 20 mg tablet 20 mg PO DAILY 30 Days Qty: 30 1RF cyclobenzaprine 5 mg tablet 5 mg PO BEDTIME Qty: 10 0RF ibuprofen 800 mg tablet 800 mg PO Q8H Qty: 20 0RF Referrals: Geraldine Jasso, JESSICA [Primary Care Provider] - 2 days Stand Alone Forms: Work/School Release Print Language: [place]
[2024-08-08 11:54] LABS: Troponin-I High Sensitivity 3.4 ng/L (<3.5-17.0)
[2024-08-08 12:17] VITALS: BP 143/82; PULSE 90; RESP 20; TEMP 36.2; O2SAT 96
== END 2024-08-08 12:17 | disposition home or self-care (01) ==
PROVIDERS: Emergency Provider Emergency Medicine; PCP Nurse Practitioner Family
DX: J18.9 Pneumonia, unspecified organism (principal); R07.9 Chest pain, unspecified; R06.02 Shortness of breath; R05.9 Cough, unspecified; Z03.818 Encounter for observation for suspected exposure to other biological agents ruled out; I10 Essential (primary) hypertension; E66.9 Obesity, unspecified; Z68.41 Body mass index [BMI] 40.0-44.9, adult
CPT/HCPCS: 0241U; 36415; 71046; 80048; 83880; 84484; 85025; 93005; 99283; 99284

== ENCOUNTER → 2024-08-08 09:24 | Outpatient (BNV) | payer OTHER, SELFPAY | PROVIDERS: Emergency Provider Emergency Medicine; PCP Nurse Practitioner Family; Visit Provider Internal Medicine Cardiovascular Disease | DX: R94.31 Abnormal electrocardiogram [ECG] [EKG] (principal); R07.9 Chest pain, unspecified | CPT/HCPCS: 93010 ==

== ENCOUNTER → 2024-08-08 09:32 | Outpatient (BNV) | payer OTHER, SELFPAY | PROVIDERS: Emergency Provider Emergency Medicine; PCP Nurse Practitioner Family; Visit Provider Radiology Vascular & Interventional Radiology | DX: R05.9 Cough, unspecified (principal); R06.02 Shortness of breath | CPT/HCPCS: 71046 ==

== ENCOUNTER 2024-08-13 09:08 | Outpatient (AMB) | payer OTHER, SELFPAY ==
--- NOTE | 2024-08-13 09:11 | A.OFFPC_ITS ---
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 Required: No Is last menstrual period known: Yes Last menstrual period: 06/29/24 Post menopausal: No Patient : No Allergies No Known Allergies Allergy (Verified 08/13/24 09:20) Medication List - Last Reconciled 08/13/24 by Geraldine Jasso CNP amoxicillin 500 mg PO TID benzonatate 100 mg PO TID PRN ibuprofen 800 mg PO Q8H lisinopril 20 mg PO DAILY 30 days Tobacco use date assessed: 08/13/24 Dental Screening Dental Screen Date: 08/13/24 Did you have a dental visit in the last 12 months?: No Did you have a dental problem in the last 6 months where you did not have access to dental care?: No Was dental information given to patient?: Patient has dentist HPI HPI Comments History of Present Illness Details 39-year-[facility]. She admits to taking lisinopril as prescribed without adverse reactions. She was evaluated/treated at [facility] for right lower lobe pneumonia on 08/08/2024. She is currently on amoxicillin 500 mg t.i.d; will complete course in 2 days. She notes that her cough has been improving, predominantly nonproductive, denies other symptoms. [facility] Medical History Right knee pain Chronic headaches Morbid obesity No pertinent past medical history Surgical History Hx of tubal ligation H/O: Family History Mother HTN (hypertension) Diabetes Father No problems noted. Daughter No problems noted. Daughter No problems noted. 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: No Sexual orientation: Straight/Heterosexual Gender identity: Female Cognitive needs: No Hearing needs: No Vision needs: No Female Reproductive History Menstrual Age of Menarche: 9 Date of last menstrual period: 06/29/24 Questionnaire Thrive Questionnaire Date Thrive assessed: 04/30/24 I am a: Patient What is your living situation today?: I have a steady place to live Within the past 12 months, did the food you bought not last and you didn't have the money to get more?: Often true Within the past 12 months, did you worry whether your food would run out before you got money to buy more?: Often true Do you have trouble paying for medicines?: No Do you have trouble getting transportation to medical appointments?: No Do you have trouble paying your heating and electricity bill?: No Do you have trouble taking care of your child, family member or friend?: No Do you have trouble with day-to-day activities such as bathing, preparing meals, shopping, managing finances, etc.?: No Are you currently unemployed and looking for a job?: No Are you interested in more education?: No Please select the resources that you would like help with: None Currently or been in a relationship where the following occur: No concerns reported THRIVE Score: 2 ELINOR-7 AMB Questionnaire ELINOR-7 Date ELINOR - 7 assessed: 09/26/23 Source: Developed by Drs. Miguel Vasquez, Yoon Fink, Osmin Bolton and colleagues, with an educational jovanny from [employer]. Review of Systems Const Details: Const Denies chills, Denies fatigue, Denies fever(s), Denies headache(s) and Denies weakness ENT Reports as per HPI Card Denies chest pain, Denies lightheadedness, Denies dyspnea and Denies other (Palpitations) Resp Reports cough, Denies dyspnea, Denies wheezing and Denies other ( shortness of breath) GI Denies abdominal pain, Denies melena, Denies hematochezia, Denies change in bowel habits, Denies dyspepsia and Denies nausea Denies hematuria and Denies dysuria Musc Denies abnormal gait, Denies myalgias, Denies arthralgias, Denies numbness and Denies tingling Skin/Breast Denies rash, Denies unusual bruising and Denies wounds Neuro Denies abnormal gait, Denies dizziness, Denies headache(s), Denies memory loss, Denies numbness, Denies Sensory deficit (Neuro), Denies tingling and Denies weakness Psych Denies anxiety, Denies depression, Denies memory loss Endo Denies cold intolerance, Denies fatigue, Denies heat intolerance, Denies polydipsia and Denies polyuria Aller/Immun Denies wheezing Physical exam (Primary Care) Tobacco/Smoking Status: Tobacco use Status Tobacco use date assessed 06/08/24 08/13/24 09:13 Patient Tobacco Use Status Never used Tobacco 08/13/24 09:13 e-Cigarette/Vaping Use Never Used 08/13/24 09:13 Thrive Assessment: Date of Thrive Assessment Date Thrive assessed 04/30/24 08/13/24 09:13 Currently or been in a relationship where the following occur: No concerns reported Const Other: General: no acute distress and well developed Nutritional Appearance: well nourished Orientation/consciousness: patient oriented x3 HENMT Head: Yes normocephalic and Yes atraumatic Eyes General: appearance normal, both eyes and all related structures Pupils: Equal, round and reactive pupils present EOM: EOMs intact bilaterally Resp Effort & Inspection: normal respiratory effort Auscultation: clear to auscultation upper bases and diminished lower bases Cardio Rate: regular rate Rhythm: regular rhythm Heart sounds: S1 normal heart sound present, S2 normal heart sound present, no gallops, no murmurs and no rubs GI Palpation (GI): No Abdominal aortic bruit present, Soft to palpation, nontender, No hepatosplenomegaly present and No Rebound tenderness present Auscultation: normal bowel sounds General: Yes no CVA tenderness Back/Spine/Pelvis Back: no CVA tenderness Cervical Spine: cervical ROM normal and No Cervical spine tenderness Thoracic/Lumbar Spine: thoraco-lumbar ROM normal, No pain with thoraco-lumbar ROM, No thoracic spinal tenderness and No lumbar spinal tenderness Extrem General: Yes normal to inspection, No edema and No calf tenderness Skin General: warm and dry. Normal skin color. Normal skin turgor Neuro General: patient oriented x3, gait normal and no focal neuro deficit Cranial nerves: Yes Equal, round and reactive pupils present Cognition (Neuro): normal cognition Gait exam (Neuro): Normal gait present Sensory Exam: No Sensory deficit (Neuro) Psych Appearance: grossly normal Affect: normal affect Attitude: cooperative Thought process: Normal thought process present Coding Level of Care Code Est Pt Level 4 (65947) Diagnoses Hypertension I10 Microcytic anemia D50.9 Pneumonia J18.9 Laterality: right Lung location: lower lobe of lung Pneumonia type: due to unspecified organism Laboratory tests ordered as part of a complete physical exam (CPE) Z00.00 Assessment & Plan Assessment & Plan (1) Hypertension: Code(s): I10 - Essential (primary) hypertension Category: Medical Plan: Resting blood pressure is 130/70, within goal of less than 140/90. Continue current treatment regimen. Low-sodium diet encouraged. Advised to perform lab work at least 2-3 days before her next visit. Follow-up in 2 months for an extended physical exam and labs review. Return sooner with symptoms or concerns. Verbalized understanding and agreed with the plan. (2) Microcytic anemia: Code(s): D50.9 - Iron deficiency anemia, unspecified Category: Medical Plan: Recent H&H levels was slightly low, 10.9/35.8, MCV is slightly low, 79.7. She has history of iron-deficiency anemia. Will recheck CBC and check iron profile, ferritin, vitamin B12, and folate levels. Will make changes as needed. Verbalized understanding and agreed with the plan. (3) Pneumonia: Code(s): J18.9 - Pneumonia, unspecified organism Category: Medical Qualifiers: Laterality: right Lung location: lower lobe of lung Pneumonia type: due to unspecified organism Qualified Code(s): J18.9 - Pneumonia, unspecified organism Plan: Her cough has been improving, predominantly nonproductive, no other symptoms. Lung clear to auscultation upper bases and diminished lower bases. Advised to take amoxicillin as prescribed and complete course. Continue to take benzonatate as needed for cough. May take Zyrtec daily. Adequate hydration encouraged. Follow-up with worsening or new symptoms. Verbalized understanding and agreed with the plan. (4) Laboratory tests ordered as part of a complete physical exam (CPE): Code(s): Z00.00 - Encounter for general adult medical examination without abnormal findings Category: Medical Plan: Fasting labs ordered as part of a complete physical exam. Advised to fast for at least 10 hours before getting labs drawn. May drink water Verbalized understanding and agreed with treatment plan. Orders: Orders Complete Blood Count Auto Diff 2 Months Z00.00 - Encounter for general adult medical examination without abnormal findings Comprehensive [place]. Panel Fast 2 Months Z00.00 - Encounter for general adult medical examination without abnormal findings Lipid Panel 2 Months Z00.00 - Encounter for general adult medical examination without abnormal findings Microalbumin, Random (w Creat) 2 Months Z00.00 - Encounter for general adult medical examination without abnormal findings TSH reflex Free T4 2 Months Z00.00 - Encounter for general adult medical examination without abnormal findings Vitamin D 25-OH Total 2 Months Z00.00 - Encounter for general adult medical examination without abnormal findings Vitamin B12 and Folate 2 Months D50.9 - Iron deficiency anemia, unspecified IRON PROFILE 2 Months D50.9 - Iron deficiency anemia, unspecified UA CC w/rflx Micro + Cult 2 Months Z00.00 - Encounter for general adult medical examination without abnormal findings Ferritin 2 Months D50.9 - Iron deficiency anemia, unspecified
[2024-08-13 09:14] VITALS: BP 142/64; PULSE 78; RESP 20; TEMP 36.8; O2SAT 96; BMI 42.7
--- OUTSIDE RECORDS SUMMARY | 2024-08-13 09:26 | XMS_ITS | Patient Health Record ---
Author Organization [facility] Address [address] [place] [id number] Care Team Providers Care Electromechanisms Design Drafter Name Role Phone Jose Ryder Primary Care Provider [phone] Jose Ryder Unavailable Unavailable Reason For Referral No Information Medications Medication SIG (Take, Route, Fr equency, Duration) Notes Start Date End Date Status Xigduo XR 5-1000 MG 1 tablet Orally Once a day for 90 days Active metFORMIN HCl 1000 MG 1 tablet with a me al Orally twice a day for 30 day(s) 02/02/2019 Active Social History Tobacco Use: Social History Observation Description Date Details (start date - stop date) Never Smoker NA - NA Do you smoke? Question Answer Notes Are you a: nonsmoker Alcohol Screen Question Answer Notes Did you have a drink containing alcohol in the p ast year? No Points 0 Interpretation Negative Sexual History Question Answer Notes Had sex in the past 12 months (vaginal, oral, or anal)? No Have you ever had a Sexually transmitted disease ? No Last menstrual period 03/23/2019 Tobacco Use (other than smoking) Question Answer Notes Do you use other forms of tobacco? No Problems Problem Type SNOMED Code ICD Code Onset Dates Problem Status W/U Status Risk Notes Problem 739962164 Mixed hyperlipidemia (E78.2) Active confirmed Problem 13390712 Vitamin D deficiency (E55.9) Active confirmed Problem 970045384 Prediabetes (R73.03) Active confirmed Problem 649488278 Obesity (BMI 35.0-39.9 without comorbidity) (E66.9) Active confirmed Plan Of Treatment Pending Test Test Name Order Date Hemoglobin A1c 10/13/2017 HEMOGLOBIN A1C 12/19/2018 VITAMIN D PANEL 10/13/2017 Insurance Providers Payer Name Payer Address Payer Phone Subscriber Number Group Number Insured Name Patient Relationship to Insured Coverage Start Date Coverage End Date [employer] [facility] [address] [place] [address] [id number] Andree Quintero Self - patient is the insured Medical (General) History Medical History History ICD Code Obesity (BMI 35.0-39.9 without comorbidi ty) E66.9 Mixed hyperlipidemia E78.2 Vitamin D deficiency E55.9 Prediabetes R73.03 2004 - (Girl) 2013 - C section (girl) Surgical History Surgery Date(Month/Year) Tubal Ligation - Following 2006
[2024-08-13 09:43] VITALS: BP 130/70
== END 2024-08-13 09:31 | disposition home or self-care (01) ==
LOC: HO.HMCFM 09:09
PROVIDERS: PCP Nurse Practitioner Family; Visit Provider Nurse Practitioner Family
DX: I10 Essential (primary) hypertension (principal); D50.9 Iron deficiency anemia, unspecified; J18.9 Pneumonia, unspecified organism; Z00.00 Encounter for general adult medical examination without abnormal findings

== ENCOUNTER → 2024-08-13 09:08 | Outpatient (BNVA) | payer OTHER, SELFPAY | PROVIDERS: PCP Nurse Practitioner Family; Visit Provider Nurse Practitioner Family | DX: I10 Essential (primary) hypertension (principal); D50.9 Iron deficiency anemia, unspecified; J18.9 Pneumonia, unspecified organism; Z79.899 Other long term (current) drug therapy | CPT/HCPCS: 99212 ==

== ENCOUNTER 2024-10-12 08:21 | Outpatient (REF) | payer OTHER, SELFPAY ==
--- NOTE | ~2024-10-12 | XR_ITS ---
EXAMINATION: XR KNEE, RIGHT CLINICAL INFORMATION: M25.561 - Pain in right knee COMPARISON: None available. TECHNIQUE: AP and lateral views of the right knee. FINDINGS: No acute cortical disruption or malalignment. No lytic or blastic lesions. No suprapatellar bursa joint effusion. There is preservation of the joint spaces. 2 mm calcification in the prepatellar soft tissues. Questionable chondrocalcinosis in the lateral compartment. XR/XR knee RT 2V IMPRESSION: No acute fracture or dislocation. Questionable chondrocalcinosis versus artifact, lateral meniscal. Electronically signed by: Anastacio Culver MD 10/12/2024 08:57 AM EDT
--- NOTE | ~2024-10-12 | XR_ITS ---
EXAMINATION: XR KNEE, LEFT CLINICAL INFORMATION: Pain in left knee. COMPARISON: None available. TECHNIQUE: AP and lateral views of the left knee. FINDINGS: No acute cortical disruption or malalignment. No lytic or blastic lesions. No suprapatellar bursa joint effusion. No subcutaneous emphysema. No metallic or radiopaque foreign body. No chondrocalcinosis in the menisci region. XR/XR knee LT 2V IMPRESSION: No acute fracture or dislocation. Negative x-ray. Electronically signed by: Anastacio Culver MD 10/12/2024 08:53 AM EDT
--- OUTSIDE RECORDS SUMMARY | 2024-10-12 08:30 | XMS_ITS | Patient Health Record ---
Author Organization [facility] Address [address] [place] [id number] Care Team Providers Care Storekeeper Steward Name Role Phone Jose Ryder Primary Care Provider Jose Ryder Unavailable Unavailable Reason For Referral [...] Problem Status W/U Status Risk Notes Problem [id number] Mixed hyperlipidemia (E78.2) Active confirmed Problem 80227762 Vitamin D deficiency (E55.9) Active confirmed Problem 976248769 Prediabetes (R73.03) Active confirmed Problem 172593674 Obesity (BMI 35.0-39.9 without comorbidity) (E66.9) Active confirmed Plan Of Treatment Pending Test Test Name Order Date Hemoglobin A1c 10/13/2017 HEMOGLOBIN A1C 12/19/2018 VITAMIN D PANEL 10/13/2017 Insurance Providers Payer Name Payer Address Payer Phone Subscriber Number Group Number Insured Name Patient Relationship to Insured Coverage Start Date Coverage End Date [employer] [facility] [address] [place] [address] [id number] Andree Quintero Self - patient is the insured Medical (General) History Medical History History ICD Code Obesity (BMI 35.0-39.9 without comorbidi ty) E66.9 Mixed hyperlipidemia E78.2 Vitamin D deficiency E55.9 Prediabetes R73.03 2004 - (Girl) 2013 - C section (girl) Surgical History Surgery Date(Month/Year) Tubal Ligation - Following 2006
--- OUTSIDE RECORDS SUMMARY | 2024-10-12 08:30 | XMS_ITS | Clinical Summary ---
Author Organization [facility] Address [address] [place] [address] Care Team Providers Care Client Development Manager Name Role Phone Non-Sechc, Provider Primary Care Provider [phone] Source Comments PLEASE NOTE, if this patient [...] soap to clean the vaginal area. Immunizations Immunization Administration Dates Next Due Flu, Multi Dose 0.5 ML 05/27/2016 Hep B, Adult/Adol ([id number]/RECOMBIVAX-AD ULT) 05/27/2016 INFLUENZA, UNSPECIFIED 02/26/2012 PPD 05/24/2016 TDAP 05/24/2016 [...] 91 01/09/2017 2:12 PM EDT Temperature 36.8 C (98.2 F) 05/27/2016 9:11 AM EST Respiratory Rate - - Oxygen Saturation 97% 12/18/2016 9:32 AM EDT Inhaled Oxygen Concentration - - Weight 112 kg (247 lb) 01/09/2017 2:12 PM EDT Height 165.1 cm (5' 5 ) 01/09/2017 2:12 PM EDT Body Mass Index 41.1 01/09/2017 2:12 PM EDT Plan of Treatment Not on file Insurance [employer] Care Teams Client Development Manager Relationship Specialty Start Date End Date Non-Sechc, Provider [address] [place] [address] 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
--- OUTSIDE RECORDS SUMMARY | 2024-10-12 08:30 | XMS_ITS | Clinical Summary ---
Author Organization [facility] Address [address] [place] [phone] Phone Care Team Providers Care Shop Blacksmith Name Role Phone Pcp, Not Required Primary Care Provider Unavaila ble Allergies No known active allergies Active Problems Problem Noted Date Diagnosed Date Ingrown nail 09/28/2014 Overview (02/28/2015): Ingrown nail Social History Tobacco Use Types Packs/Day Years Used Date Smoking Tobacco: Never Comments Unknown Sex and Gender Information Value Date Recorded Sex Assigned at Not on file Legal Sex Female 9:11 AM EDT Gender Identity Not on file Sexual Orientation Not on file Plan of Treatment Not on file Medical Devices Not on file Insurance AETNA O POS EPO AETNA O POS EPO AET[employer] O POS EPO AET[employer] O POS EPO A[employer] O POS EPO AETNA O POS EPO AETNA O [facility] AET[employer] O POS EPO Care Teams Shop Blacksmith Relationship Specialty Start Date End Date Pcp, Not Required [address] [place] [id number] PCP - General 04/03/15 Additional Source Comments The information contained in this document represents components of the legal health record. It is not the complete legal health record.[facility]
[2024-10-12 10:19] LABS: Appearance Urine Clear; Glucose Urine UA Negative (Negative); PH 6.5 (5.0-9.0); Specific Gravity - Urine 1.010 (1.005-1.025)
[2024-10-12 10:25] LABS: MANUAL DIFF FLAG NO
[2024-10-12 10:30] LABS: Hematocrit 35.4 % (37.0-47.0); Hemoglobin 10.7 g/dl (12.0-16.0); Imm Gran Abs Auto 0.01 X10*3/uL (0.00-0.03); Imm Gran Pct Auto 0.2 % (0.0-0.4); Lymphocytes Absolute Auto 2.2 X10*3/uL (1.2-4.9); Mean Corpuscular HGB Conc 30.2 g/dl (31.0-35.0); Mean Corpuscular Hemoglobin 24.2 pg (27.0-33.0); Mean Corpuscular Volume 79.9 fL (80.0-98.0); NRBC Abs Auto 0.000 X10*3/uL (0.0-0.012); NRBC Pct Auto 0.0 /100WBC (0.0-0.2); Platelet Count 249 X10*3/uL (160-400); Red Blood Count 4.43 X10*6/uL (4.20-5.50); White Blood Count 5.2 X10*3/uL (4.8-10.8)
[2024-10-12 10:58] LABS: Microalbum/Creatinine Ratio Ur 6.5 ug/mg cr (<30)
[2024-10-12 11:01] LABS: Alanine Aminotransferase 14 U/L (0-31); Albumin Level 3.8 g/dL (3.5-5.0); Alkaline Phosphatase 58 U/L (39-117); Anion Gap 10 (12-20); Aspartate Amino Transferase 18 U/L (5-31); Blood Urea Nitrogen 8 mg/dL (9-16); Calcium 8.2 mg/dL (8.4-10.2); Carbon Dioxide 24 mmol/L (22-29); Chloride 111 mmol/L (96-108); Cholesterol 168 mg/dL (<200); Estimated Glomerular Filt Rate > 60; HDL Cholesterol 39 mg/dL (>40); Iron 31 mcg/dL (30-160); Percent Iron Saturation 10 % (15-50); Potassium 4.2 mmol/L (3.3-5.1); Sodium 141 mmol/L (135-145); Total Iron Binding Capacity 321 mcg/dL (228-428); Total Protein 6.6 g/dL (6.5-8.0); Triglycerides 129 mg/dL (<150); Unsaturated Iron Binding 290 ug/dL
[2024-10-12 11:20] LABS: Ferritin 9 ng/mL (10-250)
[2024-10-12 11:24] LABS: Folate 6.1 ng/mL (> or = 4.0); Vitamin B12 386 pg/mL (200-900)
== END 2024-10-12 08:22 | disposition home or self-care (01) ==
LOC: HO.HMGCX 08:21
PROVIDERS: PCP Nurse Practitioner Family; Visit Provider Nurse Practitioner Family
DX: Z00.00 Encounter for general adult medical examination without abnormal findings (principal); M25.562 Pain in left knee; M25.561 Pain in right knee; D50.9 Iron deficiency anemia, unspecified
CPT/HCPCS: 36415; 73560; 80053; 80061; 81003; 82043; 82306; 82570; 82607; 82728; 82746; 83540; 84443; 85025

== ENCOUNTER → 2024-10-12 08:37 | Outpatient (BNV) | payer OTHER, SELFPAY | PROVIDERS: PCP Nurse Practitioner Family; Visit Provider Radiology Diagnostic Radiology | DX: M25.569 Pain in unspecified knee (principal) | CPT/HCPCS: 73560 ==

== ENCOUNTER 2025-02-15 08:37 | Outpatient (AMB) | payer OTHER, SELFPAY ==
--- NOTE | 2025-02-15 08:39 | A.OFFPC_ITS ---
Vital Signs 02/15/25 08:46 02/15/25 09:08 Height 5 ft 5 in Weight 230 lb 6 oz BMI 38.3 BP 144/73 H 140/80 H Blood Pressure Location Rt brachial Rt brachial Position Sitting Sitting Respiration 16 Pulse 61 Pulse Source Pulse Oximeter Temp 97.9 F Temp Source Oral Pulse Oximetry (%) 99 Oxygen Delivery Method Room Air Intake Visit Reasons: cpe and lab review rescheduled Intake Note: patient here for CPE and labs review. Can Sorter Required: No Is last menstrual period known: Yes Last menstrual period: 01/21/25 Post menopausal: No Patient : No Allergies No Known Allergies Allergy (Verified 02/15/25 08:56) Medication List - Last Reconciled 02/15/25 by Geraldine Jasso CNP No Known Home Meds Tobacco use date assessed: 02/15/25 Dental Screening Dental Screen Date: 02/15/25 Did you have a dental visit in the last 12 months?: No Did you have a dental problem in the last 6 months where you did not have access to dental care?: No Was dental information given to patient?: Patient has dentist HPI HPI Comments History of Present Illness Details 39-year-old female presents for an exten ded physical exam and review of recent lab results. She stopped taking Lisinopril 3 months ago due to intermittent dry cough which resolved after she stopped the medication. Acute issue(s) - None Past Medical History - HTN, prediabetes, hypertriglyceridemi a, migraine with aura, LUCIO, morbid obesity, and vitamin-D deficiency Social History - Nonsmoker. Does not vape. Drinks 1 gla ss of magarita every two weeks. Denies recreational drug use - Has been making healthy dietary choice s. Exercises routinely. Generally sleep well Health maintenance - Last eye exam was about a year ago [facility]. She has a follow up appointment scheduled - Last dental visit was 6 months ago. Sh asim has a dental appointment scheduled for tomorrow - Last Tdap vaccine was in 01/29/2022 - She received the influenza vaccine 2 m onths ago - Last pap smear test was in August 2022: Normal - She has never had a mammogram. Mammogr am ordered Specialists - [facility] [place] laboratory animal facility - Escrow Agent [facility] Medical History Right knee pain Chronic headaches Morbid obesity No pertinent past medical history Surgical History Hx of tubal ligation H/O: Family History Mother HTN (hypertension) Diabetes Father No problems noted. Daughter No problems noted. Daughter No problems noted. 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 1. Little interest or pleasure in doing things: not at all 2. Feeling down, depressed, or hopeless: more than half the days 3. Trouble falling or staying asleep, or sleeping too much: several days 4. Feeling tired or having little energy: not at all 5. Poor appetite or overeating: not at all 6. Feeling bad about yourself - or that you are a failure or have let yourself or your family down: not at all 7. Trouble concentrating on things, such as reading the newspaper or watching television: not at all 8. Moving or speaking so slowly that other people could have noticed. Or the opposite - being so fidgety or restless that you have been moving around a lot more than usual: not at all 9. Thoughts that you would be better off or of hurting yourself in some way: not at all Total score: 3 Depression Screening Interpretation: Negative Depression Screening Done: Yes 80848 - PHQ-9 Billing: Yes Source: Developed by Drs. Miguel Vasquez, Osmin Irwin and colleagues, with an educational jovanny from [employer]. Thrive Questionnaire Date Thrive assessed: 02/15/25 I am a: Patient What is your living situation today?: I have a steady place to live Within the past 12 months, did the food you bought not last and you didn't have the money to get more?: Often true Within the past 12 months, did you worry whether your food would run out before you got money to buy more?: Often true Do you have trouble paying for medicines?: No Do you have trouble getting transportation to medical appointments?: No Do you have trouble paying your heating and electricity bill?: No Do you have trouble taking care of your child, family member or friend?: No Do you have trouble with day-to-day activities such as bathing, preparing meals, shopping, managing finances, etc.?: No Are you currently unemployed and looking for a job?: No Are you interested in more education?: No Please select the resources that you would like help with: None Currently or been in a relationship where the following occur: No concerns reported THRIVE Score: 2 AUDIT C Alcohol Use Questionnaire (AUDIT-C) 1. How often do you have a drink containing alcohol?: Monthly or less 2. How many drinks containing alcohol do you have on a typical day when you are drinking?: 1 or 2 3. How often do you have six or more drinks on one occasion?: Never Total Score: 1 Score Reviewed/Action Taken: Yes ELINOR-7 AMB Questionnaire ELINOR-7 Date ELINOR - 7 assessed: 02/15/25 Feeling nervous, anxious, or on edge: 0 = Not at all Not being able to stop or control worryin = Not at all Worrying too much about different things: 1 = Several days Trouble relaxin = Not at all Being so restless that it is hard to sit still: 0 = Not at all Becoming easily annoyed or irritable: 0 = Not at all Feeling afraid as if something awful might happen: 0 = Not at all Total ELINOR-7 score (0-4 normal; 5-9 mild; 10-14 moderate; 15-21 severe): 1 Source: Developed by Drs. Miguel Vasquez, Osmin Irwin and colleagues, with an educational jovanny from [employer]. ELINOR-7 Assessment Billing ELINOR-7 Assessment Tool: ELINOR-7 Assessment 10910 Review of Systems Const Details: Denies chills, Denies fatigue, Denies fever(s), Denies headache(s) and Denies weakness HEENT Denies change in vision, Denies dizziness, Denies headache(s), Denies hearing loss, Denies nasal congestion, Denies sinus pain, Denies sinus pressure and Denies sore throat Card Denies chest pain, Denies lightheadedness, Denies dyspnea and Denies other (palpitations) Resp Denies cough, Denies dyspnea and Denies wheezing GI Denies abdominal pain, Denies melena, Denies hematochezia, Denies change in bowel habits, Denies dyspepsia and Denies nausea Denies hematuria and Denies dysuria Musc Denies abnormal gait, Denies myalgias, Denies arthralgias, Denies numbness and Denies tingling Skin/Breast Denies rash, Denies unusual bruising and Denies wounds Neuro Denies abnormal gait, Denies dizziness, Denies headache(s), Denies memory loss, Denies numbness, Denies Sensory deficit (Neuro), Denies tingling and Denies weakness Psych Denies anxiety, Denies depression and Denies memory loss Endo Denies cold intolerance, Denies fatigue, Denies heat intolerance, Denies polydipsia and Denies polyuria Alvin/Lymph Denies easy bleeding and Denies easy bruising Aller/Immun Denies wheezing Physical exam (Primary Care) Vital Signs: Last Vital Signs Temp 97.9 F 02/15/25 08:46 Pulse 61 02/15/25 08:46 Resp 16 02/15/25 08:46 BP 140/80 H 02/15/25 09:08 Pulse Ox 99 02/15/25 08:46 Oxygen Delivery Method Room Air 02/15/25 08:46 BMI result Body Mass Index 38.3 Tobacco/Smoking Status: Tobacco use Status Tobacco use date assessed 02/15/25 02/15/25 08:49 Patient Tobacco Use Status Never used Tobacco 02/15/25 08:44 e-Cigarette/Vaping Use Never Used 02/15/25 08:44 PHQ-9: PHQ-9 Score PHQ-9: Total score 3 02/15/25 09:03 Depression Screening Interpretation: Negative Thrive Assessment: Date of Thrive Assessment Date Thrive assessed 02/15/25 02/15/25 08:51 Currently or been in a relationship where the following occur: No concerns reported Const Other: General: no acute distress, well developed, alert and awake Nutritional Appearance: well nourished Orientation/consciousness: patient oriented x3 [facility] Head: Yes normocephalic and Yes atraumatic Ears: hearing grossly normal bilaterally and TM's normal bilaterally General nose exam: Normal external nose present and Normal nares present Mouth: Normal oral and palatal mucosa present and moist mucous membranes Teeth and gingiva: dentition normal Throat: Yes oropharynx normal Eyes Pupils: Equal, round and reactive pupils present and Pupil accommodation reflex normal EOM: EOMs intact bilaterally Neck Neck: Yes normal visual inspection, Yes no lymphadenopathy and Yes trachea midline Thyroid: Thyroid normal Carotids: no bruits Lymphatic: no lymphadenopathy noted Chest Chest palpation & inspection: normal inspection of the chest Resp Effort & Inspection: normal respiratory effort Auscultation: clear to auscultation bilaterally Cardio Rate: regular rate Rhythm: regular rhythm Heart sounds: S1 normal heart sound present, S2 normal heart sound present, no gallops, no murmurs and no rubs Bruits: no abdominal aortic bruits and no carotid bruits GI Palpation (GI): No Abdominal aortic bruit present, Soft to palpation, nontender, No hepatosplenomegaly present and No Rebound tenderness present Auscultation: normal bowel sounds General: Yes no CVA tenderness Back/Spine/Pelvis Back: no CVA tenderness Cervical Spine: cervical ROM normal and No Cervical spine tenderness Thoracic/Lumbar Spine: thoraco-lumbar ROM normal, No pain with thoraco-lumbar ROM, No thoracic spinal tenderness and No lumbar spinal tenderness Skin General: warm and dry. Normal skin color. Normal skin turgor Lesions: no lesions Rashes: no rashes Trauma: no lacerations or abrasions Wounds: no wounds Nails: normal Neuro General: patient oriented x3, gait normal and CN's II-XI intact bilaterally Cranial nerves: Yes Equal, round and reactive pupils present Cognition (Neuro): normal cognition Gait exam (Neuro): Normal gait present Motor exam (neuro): 5/5 motor strength present throughout Sensory Exam: No Sensory deficit (Neuro) Deep tendon reflexes (DTR's): Right patellar reflex intensity grade: 2+ and Left patellar reflex intensity grade: 2+ Extrem General: Yes normal to inspection, No edema and No calf tenderness Psych Appearance: grossly normal Affect: normal affect Attitude: cooperative Thought process: Normal thought process present Coding Level of Care Code Est Pt Level 4 (37901) Est Pt Prev Care 40-64y(72507) Diagnoses Normal physical examination, routine Z00.00 Essential hypertension I10 Iron deficiency anemia D50.9 Vitamin D deficiency E55.9 Dyslipidemia E78.5 Hypocalcemia E83.51 Morbid obesity E66.01 Breast cancer screening by mammogram Z12.31 Additional Codes ELINOR-7 Assessment Billing - ELINOR-7 Assessment Tool: ELINOR-7 Assessment 28064 ([id number]) PHQ-9 - 72085 - PHQ-9 Billing: Yes ([id number]) Assessment & Plan Assessment & Plan (1) Normal physical examination, routine: Code(s): Z00.00 - Encounter for general adult medical examination without abnormal findings Category: Medical Plan: No significant functional limitation noted. Continue current treatment regimen. Follow-up in 2 months for transfer of care with a new provider within the practice. Return sooner with symptoms or concerns. Verbalized understanding and agreed with the plan. (2) Essential hypertension: Code(s): I10 - Essential (primary) hypertension Category: Medical Plan: Resting blood pressure is 140/80, slightly above goal of less than 140/90. She stopped taking Lisinopril 3 months ago due to intermittent dry cough which resolved after she stopped the medication. Losartan 25 mg daily ordered; advised to take as prescribed. Instructed on the risks, benefits, and potential adverse reactions of the medication. Low-sodium diet encouraged. Follow-up in 2 months. Verbalized understanding and agreed with the plan. (3) Iron deficiency anemia: Code(s): D50.9 - Iron deficiency anemia, unspecified Category: Medical Plan: Recent H&H is slightly low, 10.7/35.4, MCV is slightly low, 79.9. Ferritin level is slightly low, 9. Normal iron profile. Referred to Hematology/Oncology for further workup. (4) Vitamin D deficiency: Code(s): E55.9 - Vitamin D deficiency, unspecified Category: Medical Plan: Recent vitamin-D level is slightly low, 28.3. Vitamin D3 25 mcg daily ordered; advised to take as prescribed. Recheck vitamin-D level a few days before next visit. Follow-up in 2 months. Verbalized understanding and agreed with plan. (5) Dyslipidemia: Code(s): E78.5 - Hyperlipidemia, unspecified Category: Medical Plan: Recent LDL level is slightly elevated, 104, HDL level is 39. Triglycerides and total cholesterol levels are normal. Advised to limit foods high in saturated fat and avoid foods high in trans fat. Routine exercise encouraged. Fast for 10-12 hours, may drink water, and perform lipid panel blood work a few days before next visit. Follow-up in 2 months. Verbalized understanding and agreed with the plan. (6) Hypocalcemia: Code(s): E83.51 - Hypocalcemia Category: Medical Plan: Recent calcium level is slightly low, 8.2. Likely related to vitamin-D deficiency. Advised to take vitamin D3 as prescribed. Will recheck calcium level in 2 months. Verbalized understanding and agreed with the plan. (7) Morbid obesity: Code(s): E66.01 - Morbid (severe) obesity due to excess calories Category: Medical Plan: She currently weighs 230 lb, BMI is 38.3. She admits to making healthy lifestyle changes, including diet and regular exercise. She was followed by [facility] [place] station attendant/dietitian and weight management and declines to follow-up at this time. Encouraged to continue with healthy diet and routine exercise. Follow-up as needed. Verbalized understanding and agreed with the plan. (8) Breast cancer screening by mammogram: Code(s): Z12.31 - Encounter for screening mammogram for malignant neoplasm of breast Category: Medical Plan: She has never had a mammogram. Mammogram ordered Orders: Orders Lipid Panel 2 Months E78.5 - Hyperlipidemia, unspecified Vitamin D 25-OH Total 2 Months E55.9 - Vitamin D deficiency, unspecified Calcium 2 Months E83.51 - Hypocalcemia MM screening mammo BI Today Z12.31 - Encounter for screening mammogram for malignant neoplasm of breast Referrals Hematology & Oncology Referral D50.9 - Iron deficiency anemia, unspecified Medications: New losartan 25 mg PO DAILY 30 tabs 3RF 30 days cholecalciferol (vitamin D3) 25 mcg PO DAILY 30 tabs 3RF 30 days
[2025-02-15 08:46] VITALS: BP 144/73; PULSE 61; RESP 16; TEMP 36.6; O2SAT 99; BMI 38.3
--- OUTSIDE RECORDS SUMMARY | 2025-02-15 08:57 | XMS_ITS | Clinical Summary ---
Author Organization [facility] Address [address] [address] Phone Care Team Providers Care Special Education Paraeducator Name Role Phone Pcp, Not Required Primary [...] O POS EPO [employer] O [facility] EPO Care Teams Special Education Paraeducator Relationship Specialty Start Date End Date Pcp, Not Required [address] [place] [phone] PCP - General 04/03/15 Additional Source Comments The information contained in this document represents components of the legal health record. It is not the complete legal health record.[facility]
[2025-02-15 09:08] VITALS: BP 140/80
== END 2025-02-15 09:23 | disposition home or self-care (01) ==
LOC: HO.HMCFM 08:37
PROVIDERS: PCP Nurse Practitioner Family; Visit Provider Nurse Practitioner Family
DX: Z00.00 Encounter for general adult medical examination without abnormal findings (principal); I10 Essential (primary) hypertension; E66.01 Morbid (severe) obesity due to excess calories; Z68.38 Body mass index [BMI] 38.0-38.9, adult; D50.9 Iron deficiency anemia, unspecified; E55.9 Vitamin D deficiency, unspecified; E78.5 Hyperlipidemia, unspecified; E83.51 Hypocalcemia

== ENCOUNTER → 2025-02-15 08:37 | Outpatient (BNVA) | payer OTHER, SELFPAY | PROVIDERS: PCP Nurse Practitioner Family; Visit Provider Nurse Practitioner Family | DX: Z00.00 Encounter for general adult medical examination without abnormal findings (principal); I10 Essential (primary) hypertension; D50.9 Iron deficiency anemia, unspecified; E78.5 Hyperlipidemia, unspecified; E83.51 Hypocalcemia; E66.01 Morbid (severe) obesity due to excess calories; Z68.38 Body mass index [BMI] 38.0-38.9, adult | CPT/HCPCS: 96127; 99396 ==